=== PATIENT | male | born 1970 | race Caucasian/White ===

== ENCOUNTER → 2018-05-30 13:25 | Outpatient (CLI) | payer MEDICAID, SELFPAY | PROVIDERS: Visit Provider Nurse Practitioner Family | DX: M54.5 Low back pain (principal) | CPT/HCPCS: 72100; 72220 ==

== ENCOUNTER 2018-11-15 17:48 | Emergency (ER) | payer BC, SELFPAY ==
[2018-11-15 17:50] VITALS: BP 136/83; PULSE 104; RESP 18; TEMP 36.4; O2SAT 96; BMI 39.7
[2018-11-15] MEDS: Naproxen 500 MG Tablet PO (18:11)
--- NOTE | 2018-11-15 18:20 | RAD_ITS ---
STUDY: X-RAY - RIGHT FEMUR REASON FOR STUDY: Male, 48 years old. Pain TECHNIQUE: 5 view(s) of the femur. COMPARISON: None. FINDINGS: Normal visualized femur. Normal visualized soft tissue structure. RAD/Femur Min 2 Views IMPRESSION: Normal x-ray examination of the femur. Electronically Signed: Joaquin Horne MD at 19:09 EST , Service support ,
--- NOTE | 2018-11-15 19:13 | ED.VISSUMM ---
- ER Visit Summary Date of Service: 11/15/18 Chief Complaint: Right thigh pain History of Present Illness: The patient is a 48 M who [facility]. He reports he has chronic right thigh pain is worsened over the past 2 weeks. He describes it as a ripping pain that is 10-10 severity. Is worsened by movement. He is taken Tylenol and naproxen without relief. He denies any recent fall or MVA. He reports that he has had a change in activity. Approximately 2 weeks ago he moved to a different position at work where he stands in one place constantly rather than walks around. Also reports that he has started going to the gym and is using the stationary bike, elliptical machine, and rowing machine. Review of systems: General: No fever, chills, cold sweats. Cardiovascular: No chest pain, palpitations. Respiratory: No cough, shortness of breath, dyspnea on exertion. Gastrointestinal: No abdominal pain, nausea, vomiting, diarrhea, melena, or hematochezia. Genitourinary: No dysuria, frequency, hematuria. Skin: No rash. Neuro: No headache, numbness, weakness. Physical Examination: Vitals: Stable. Afebrile. General: Well-nourished and well-developed. Head: Normocephalic atraumatic. Neck: Supple, no lymphadenopathy. No JVD. Nontender. Cardiovascular: Regular rate and rhythm. No murmurs. Respiratory: No respiratory distress. Clear to auscultation bilaterally. Abdominal: Soft, nontender, nondistended, normal bowel sounds. No guarding, rebound, or peritoneal signs. Back: Nontender. Extremities: Severe tenderness palpation over the quadriceps muscle. No pain over the patella. No pain with range of motion of the knee. He has no edema distally. He has a 2+ dorsalis pedis pulse. Normal sensation light touch. There is no rash, contusion, erythema, or evidence of a hematoma. Skin: Normal color, no rash. Neurologic: Alert and oriented ?3. Cranial nerves II through XII are intact. Normal strength and sensation. Psych: Normal affect. Test Results: Right femur x-ray is negative. Emergency Department Course and Treatment: An OAR[facility] report was obtained which was negative. Patient was treated with naproxen here. Treatment Plan: Patient will be discharged with naproxen and [place]. Instructed to follow-up with the [facility] in 1 week if not improving. Return to the emergency department for any worsening symptoms. Disposition: To home in improved and stable condition. Impression: 1. Right thigh pain, uncertain cause. This note was generated with [employer] dictation software. It may contain incorrect words, spelling, and punctuation that were not noted in review of the chart prior to signing ED Disposition - Plan for ED Patient: Disposition: Home or Assisted Living Instructions: ED Muscle Aching Prescriptions: Hydrocodone Bitart/Apap 5-325 [[place] 5MG-325MG] 1 tablet PO Q6H PRN PRN 3 Days #10 tablet PRN Reason: Pain Naproxen [Naprosyn] 500 mg PO BID PRN #20 tablet Referrals: [facility] [Primary Care Provider] - 3-5 Days if not improving Yonny Trevino MD [STAFF PHYSICIAN] -
[2018-11-15 19:29] VITALS: PULSE 92; RESP 18; O2SAT 96
== END 2018-11-15 19:29 | disposition home or self-care (01) ==
PROVIDERS: Emergency Provider Emergency Medicine
DX: M79.651 Pain in right thigh (principal); Z72.0 Tobacco use
CPT/HCPCS: 73552; 99283

== ENCOUNTER 2019-01-24 16:42 | Emergency (ER) | payer BC, SELFPAY ==
[2019-01-24 16:43] VITALS: BP 147/100; PULSE 82; RESP 16; TEMP 36.6; O2SAT 94; BMI 40.1
--- NOTE | 2019-01-24 16:59 | CT_ITS ---
STUDY: CT ABDOMEN AND PELVIS WITHOUT CONTRAST REASON FOR EXAM: Male, 48 years old. Right lower quadrant pain RADIATION DOSAGE (If Supplied By Facility): CTDIvol = ( 21.29 ) mGy, DLP = ( 1196.99 ) mGycm TECHNIQUE: Transaxial images were obtained from the dome of the diaphragm to the symphysis pubis without oral contrast, and without intravenous contrast. Sagittal and coronal images were reconstructed. Individualized dose optimization techniques were used for this CT. COMPARISON: None. FINDINGS: The visualized lung bases are unremarkable. The visualized portions of the heart are within normal limits. There is decreased attenuation of the liver consistent with steatosis. Normal gallbladder and extrahepatic biliary system. Normal spleen. Normal pancreas. Normal bilateral adrenal glands. Normal right kidney. Normal left kidney. Normal visualized stomach. Normal small intestine. Normal colon. The appendix is visualized and appears normal. There is diffuse atherosclerotic calcification of the abdominal aorta, without a demonstrated aneurysm. Normal inferior vena cava. Normal retroperitoneum. Under distended bladder. There are prostatic calcifications. Normal abdominal wall. Normal osseous structures. CT/Abdomen/Pelvis without Cont IMPRESSION: Normal appendix. No evidence of urolithiasis or obstruction. Underdistended bladder. Electronically Signed: Bill Duarte DO at 18:34 EDT Tel , Service support ,
--- NOTE | 2019-01-24 17:04 | ED.DCSUM_ITS ---
- ER Visit Summary Date of Service: 01/24/19 Chief Complaint: Right lower quadrant abdominal pain History of Present Illness: The patient is a 48 M 3-day history of progressive right lower quadrant abdominal pain. Nausea without vomiting. Subjective fevers today. Urine frequency. Pain is 11 0.5 out of 10, worse with car ride coming in. No abdominal surgery history. Reports only past medical history is traumatic vertebral cervical fractures with no surgical intervention. Last meal was last evening, reports took a sip of coke prior to arrival. No PCP. Physical Examination: General: Alert and oriented ?3, no acute distress HEENT: Normocephalic, atraumatic. Moist mucosa membranes Neck: supple, nontender. Cardiovascular: Regular rate and rhythm, no murmurs Respiratory: Normal breath sounds, symmetric, no distress Abdomen: Soft, positive McBurney's tenderness, positive obturator's, negative Rovsing's. Negative Copeland's. No guarding, positive rebound. Extremities: Nontender, no edema, pulses intact ?4 Neuro: no focal neurological deficits. Test Results: WBC 7.5. Urine leukocytes, ketones. Negative nitrites or white blood cells. CT abdomen pelvis normal appendix with no acute findings. Emergency Department Course and Treatment: Patient tender right lower quadrant. Symptoms for 3 days. Reports subjective fevers today. Workup to rule out appendicitis. Given morphine Zofran and fluids. White count returned negative. Urine notes 25 leukocytes however no other findings. CAT scan results has a normal appendix. Reevaluation nontender abdomen. 3 days of symptoms, normal white count, negative CT, less likely clinical appendicitis at this time. Symptoms are improved. He reports coughing with some strain prior to symptoms. Discussed possibly muscle strain. However did discuss if symptoms worsen right lower quadrant he needs to return for reevaluation. He is given follow-up as an outpatient. All questions were answered. Treatment Plan: [] Disposition: Discharge Impression: Right lower quadrant abdominal pain This note was generated with [email or web address] dictation software. It may contain incorrect words, spelling, and punctuation that were not noted in review of the chart prior to signing ED Disposition - Plan for ED Patient: Disposition: Home or Assisted Living Diagnosis: Right lower quadrant abdominal pain Instructions: ED Abdominal Pain Excl Appendx Male Referrals: [facility] [NON-STAFF] - 3-5 Days if not improving
[2019-01-24] MEDS: Ondansetron 4 MG/2 ML Vial IV (17:07)
[2019-01-24] MEDS: Morphine 4 MG/ML Syringe IV (17:07)
[2019-01-24] MEDS: 0.9% Normal Saline 1,000 ML 150 ML IV (17:07)
[2019-01-24 17:21] LABS: Bacteria 0 SEEN /hpf (None Seen); Mucous, Urine 0 SEEN /hpf (<or=2+); Red Blood Cells-Urine 0 SEEN /hpf (0-5)
[2019-01-24 17:26] LABS: Absolute Neutrophil Count 4.7 X10^3/uL (2.0-7.7); Basophil# 0.04 X10^3/uL; Basophil% 0.5 % (0-1); Eosinophil# 0.26 X10^3/uL; Eosinophils% 3.3 % (0-5); Hematocrit 44.4 % (40-54); Hemoglobin 15.1 g/dl (13.0-16.5); Lymphocyte % 25.7 % (19-41); Mean Corpuscular Hgb 31.2 pg (27.0-32.0); Mean Corpuscular Volume 91.7 fL (80-94); Mean Platelet Vol. 9.8 fl (6.2-12.0); Monocyte# 0.75 X10^3/uL; Monocyte% 9.7 % (0-10); Neutrophil % 60.5 % (47-70); POSITIVE COUNT NO; POSITIVE DIFFERENTIAL NO; POSITIVE MORPHOLOGY NO; Platelet Count 196 K/mm3 (150-450); RBC Distribution Width CV 13.8 % (11.6-14.6); RBC Distribution Width SD 45.8 fl (35.1-43.9); Red Blood Count 4.84 M/mm3 (4.6-6.2); White Blood Count 7.8 K/mm3 (4.4-11.0)
[2019-01-24 17:33] LABS: Prothrombin Time (Protime)PT. 13.1 SECONDS (11.7-14.9)
[2019-01-24 17:34] LABS: Partial Thromboplast Time 26.2 Seconds (24.1-36.2)
[2019-01-24 17:37] LABS: Anion Gap 4 (5-15); BUN 12 mg/dL (7-18); BUN/Creat Ratio 15.1 RATIO (10-20); Calcium,Total 8.3 mg/dL (8.5-10.1); Chloride 113 mmol/L (98-107); EST Glomerular Filtration Rate 109 mL/min (>60); Est Glom Filt Rate - Afr Amer 132 mL/min (>60); Estimated Creatinine Clearance 114.06 ml/min; Glucose 94 mg/dL (74-106); Potassium 3.6 mmol/L (3.5-5.1); Sodium Level 143 mmol/L (136-145)
[2019-01-24 17:46] LABS: Color, Urine Yellow (Yellow); Glucose, Dipstick Normal (Normal); Ketone-Dipstick 5 mg/dl (Negative); Leukocyte Esterase-Dipstick 25 /ul (Negative); Nitrite-Dipstick Negative (Negative); Occult Blood-Urine Negative /ul (Negative); Protein-Dipstick 15 mg/dl (Negative); Urine Bilirubin Dipstick Negative (Negative); Urine Clarity Sl. Cloudy (Clear); Urine Urobilinogen 1 mg/dl (Normal)
[2019-01-24 18:24] LABS: Squamous Epithelial Cells - UA 0-5 SEEN /hpf (0-5); Trichomonas 0-5 SEEN /hpf (None Seen); White Blood Cells 0-5 SEEN /hpf (0-5)
[2019-01-24 19:46] VITALS: BP 138/60; PULSE 78; RESP 16; O2SAT 96
== END 2019-01-24 19:47 | disposition home or self-care (01) ==
PROVIDERS: Emergency Provider Emergency Medicine
DX: R10.31 Right lower quadrant pain (principal); E66.9 Obesity, unspecified; Z72.0 Tobacco use
CPT/HCPCS: 74176; 80048; 81001; 85025; 85610; 85730; 96361; 96374; 96375; 99283; J7030; A4216; J2405

== ENCOUNTER 2019-08-12 18:04 | Emergency (ER) | payer BC, SELFPAY ==
[2019-08-12] VITALS (10 sets, daily range): BP systolic 125–187; BP diastolic 71–88; PULSE 95–112; RESP 14–30; TEMP 37.3–37.5; O2SAT 84–99; BMI 40.9
--- NOTE | 2019-08-12 18:30 | EKG12_ITS ---
Test Reason : CELLULITIS Blood Pressure : / mmHG Vent. Rate : 100 BPM Atrial Rate : 100 BPM P-R Int : 150 ms QRS Dur : 092 ms QT Int : 338 ms P-R-T Axes : 034 050 041 degrees QTc Int : 436 ms Normal sinus rhythm Normal ECG Confirmed by ALVA ELAINE, KURT ([id number]), electronic news gathering editor DARRON ALLEN ([id number]) on 08/16/2019 1:58:08 PM Referred By: PAXTON Confirmed By:KURT CALLE MD
--- NOTE | 2019-08-12 18:42 | HP.PCM_ITS ---
Problem List (1) Abscess of right groin Status: Acute (2) Cellulitis Status: Acute Qualifiers: Site of cellulitis: unspecified site Qualified Code(s): L03.90 - Cellulitis, unspecified (3) Sepsis Status: Acute Qualifiers: Sepsis type: sepsis due to unspecified organism Sepsis acute organ dysfunction status: unspecified Qualified Code(s): A41.9 - Sepsis, unspecified organism (4) HLD (hyperlipidemia) Status: Chronic Qualifiers: Hyperlipidemia type: unspecified Qualified Code(s): E78.5 - Hyperlipidemia, unspecified (5) Morbid obesity Status: Chronic (6) Tobacco use Status: Chronic History of Present Illness Date of Admission: 08/12/19 Chief Complaint: RLE redness, R groin fullness with drainage, fever, chills The patient is a 49 y/o M w/ PMHx: HLD, Morbid Obesity, Tobacco use, Prior episode of RLE cellulitis w/ concurrent R groin abscess with I+D at [facility] in [place] who presents to the [facility] ED on 08/12/19 with history of onset right groin fullness and tenderness with subjective fevers and chills starting the day prior to current presentation with today notable redness to the region, increased fullness, left lower quadrant discomfort with streaking down the leg in addition to spontaneous rupture of the apparent abscess in the groin with purulent material in addition to swelling of the scrotal region and redness. Patient states that he takes no medications except that approximately 1 week ago he was seen at urgent care secondary to cough congestion and subjective fevers and chills at that time with chest x-ray that was unremarkable with treatment with an albuterol as needed inhaler and a steroid burst regimen with improvement from the symptoms until current presentation as noted. Work-up in the ED included T 99.5, heart rate 112, BP 159/84, respiratory rate 17, 96% on room air, at time of request evaluation of patient he has pending CBC with differential, CMP, lactic acid, PTT, PT, UA, planned I&D per ED physician with discussed need for wound culture and MRSA wound once performed. ED physician noted after I&D perfo rmed if concern for tunneling he would obtain imaging. He noted intention to consult the urologist prior to admission. Past Medical History Past Medical History (Chronic Problems): Chronic Problems HLD (hyperlipidemia) (Chronic) Morbid obesity (Chronic) Tobacco use (Chronic) Allergies No Known Allergies Allergy (Verified 08/12/19 18:04) Home Medications: Ambulatory Orders Medication Instructions Recorded NK 08/12/19 Surgical History: - - Patient has history of prior trauma with possible left upper extremity surgery and left lower extremity surgery, tonsillectomy, status post left groin I&D with similar presentation to current. Psychiatric History: No pertinent psych hx Lives: With Family - Patient notes that he lives with his cousin. Smoking Status: Current every day smoker - Patient smokes approximately 1 pack/day, often less. Tobacco Use: Cigarettes Alcohol: None Drugs: None - *Family History Maternal History Items: - - Patient notes that his mother when he was less than 1 year old secondary to carbon monoxide poisoning. No significant medical history including heart disease, diabetes or cancer. Paternal History Items: Diabetes, Heart Disease Review of Systems Constitutional: Reports: Anorexia, Chills, Fever, Malaise, Weakness, Fatigue. Denies: Weight Change HEENT: Reports: Post Nasal Drip - Recent, improved, near resolved, Sinus Congestion - Recent, improved, near resolved, Sinus Drainage, Sore Throat - Recent, improved, near resolved.. Denies: Head Aches Cardiovascular: Denies: Chest Pain, Palpitations Respiratory: Reports: Cough - Recent, improved, near resolved., Sputum production - Recent, improved, near resolved. Denies: Shortness of Breath, Shortness of breath at rest, Shortness of breath upon exertion, Wheezing Gastrointestinal: Reports: Abdominal Pain, Nausea. Denies: Vomiting Genitourinary: Denies: Dysuria Musculoskeletal: Reports: Back Pain, Leg Pain, - - Technique again left groin pain and left lower extremity pain.. Denies: Joint Pain, Joint Tenderness Skin: Reports: Skin Changes, Wounds. Denies: Rash Neurological: Denies: Numbness, Tingling, Focal weakness Psychiatric: Denies: Anxiety, Depression, Homicidal Ideations, Suicidal Ideations Hematologic/ Lymphatic: Denies: Easy Bruising, Easy Bleeding VTE Information - Inpt Only VTE Present on Admission: No VTE Mechan Device Prophylaxis: SCD's VTE Pharm Prophylaxis ordered?: No Reason prophylaxis not ordered:: Medical Contraindication - Will hold chemoprophylaxis as suspect patient will eventually need operative intervention. Subjective: Seated upright in ED bed, significantly uncomfortable, asking for pain medication, and pending I&D of the left groin. Objective: Physical Examination: General: awake, alert, oriented x 3 and cooperative, seated upright in the ED bed, uncomfortable appearing. Skin: normal color, turgor, no icterus, cyanosis except notable LLE streaking, more prominent to the upper thigh region as well as suprapubic and left testicular region, fullness, spontaneous drainage from the right focal groin abscess which is evident, very tender to palpation, warm to touch. HEENT: AT/NC, EOMI, PERRLA, dry MM, no carotid bruits or JVD noted. Lungs: CTA bilaterally, moderate effort, moderate decrease BL bases, no rales, ronchi or wheezing. Heart: Tachycardic with regular rhythm; no gallop, rub audible. Abdomen: soft, morbidly obese, tenderness to palpation bilateral lower quadrants left greater than right with noted pain on the left side with palpation of the right, see skin findings for groin but unable to discern distention given habitus, decreased bowel sounds, unable to discern HSM secondary to habitus. Extremities: no cyanosis, clubbing, see skin, right lower extremity with erythema, firm primarily in the upper thigh region but some firmness to palpation of the calf 2. Neurological: patient awake, alert, oriented x 3; cognitive function intact; pupils equally reactive to light and accomodation; cranial nerves II-XII grossly normal, moving all 4 extremities very limited secondary to severity of pain, no focal deficits, strength severely global decreased to secondary to acute presentation. Psychiatric: affect appears strained, evidence ongoing pain, no acute evidence of depressive or anxiety feelings. - Physical Exam Vitals/I&O's: Vital Signs Temp Pulse Resp BP Pulse Ox 99.5 F H 112 H 17 159/84 H 96 08/12/19 18:05 08/12/19 18:05 08/12/19 18:05 08/12/19 18:05 08/12/19 18:05 Oxygen Delivery Method Room Air Weight: 285 lb 7.978 oz Body Mass Index (BMI) 40.9 Current Medications Vancomycin HCl 2,250 mg/ (Dextrose) 295 mls @ 250 mls/hr IV X1 ONE Stop: 08/12/19 19:23 Lactated Ringer's () 1,000 mls @ 250 mls/hr IV .Q4H MICHAEL Piperacillin Sod/Tazobactam Sod (Zosyn) 4.5 gm in 100 mls @ 200 mls/hr IV X1 ONE Stop: 08/12/19 18:53 Clindamycin Phosphate 900 mg/ (Dextrose) 106 mls @ 75 mls/hr IV X1 ONE Stop: 08/12/19 19:56 Vancomycin HCl 2,000 mg/ (Sodium Chloride) 540 mls @ 250 mls/hr IV X1 ONE Stop: 08/12/19 21:09 Assessment/Plan All Active Problems Abscess of right groin (Acute) Cellulitis (Acute) Sepsis (Acute) The patient is a 49 y/o M w/ PMHx: HLD, Morbid Obesity, Tobacco use, Prior episode of RLE cellulitis w/ concurrent R groin abscess with I+D at [facility] in [place] who presents to the [facility] ED on 08/12/19 with history of onset right groin fullness and tenderness with subjective fevers and chills starting the day prior to current presentation with today notable redness to the region, increased fullness, left lower quadrant discomfort with streaking down the leg. (1) RLE Groin Abscess, Cellulitis Lower Abdomen, R groin, R Testicle and RLE w/ Suspected Acute Sepsis, possible Severe Sepsis (pending labs, cannot discern): ED physician currently planning I&D, noted intention for lower extremity and lower abdomen imaging if tracking evident, plans to obtain wound culture and wound MRSA PCR, admission currently clindamycin, vancomycin and Zosyn. Will await this further work-up and also discussed patient presentation with urology as concerned that patient likely needs progression to the OR given severity of his appearance, maintain aggressive antibiotic therapy as noted, would plan admission to appropriate floor once results obtained if urology agreeable to evaluation and possible surgical intervention on patient, we then plan repeat CBC in AM, trending of lactic acid is likely expected to be elevated, continue affected extremity elevation above heart when seated and in bed, monitor erythema outline with VS checks. Wound nurse would also be consulted. (2) Morbid Obesity: Weight loss and lifestyle changes encouraged, nutrition consulted. (3) Tobacco Abuse: Encouraged cessation, inpatient consultation per RT, NR if desired. (4) Hyperlipidemia: Defer to outpatient. (5) Recent Viral Bronchitis: Patient with recent viral bronchitis, clinically improved from this, noted unremarkable chest x-ray outpatient with treatment with PRN albuterol and steroid burst regimen. (6) DVT prophylaxis: SCDs, defer chemoprophylaxis I suspect will need operative intervention, pending discussion with urology.
--- NOTE | 2019-08-12 18:45 | ED.DCSUM_ITS ---
History of Present Illness Chief Complaint: Cellulitis Informant: Patient Onset: Yesterday Context: Sudden Onset Timing: Continuous Quality: Red swollen painful left groin and leg Location: Left groin and leg Current Severity: Moderate Maximum Severity: Severe Worsened by: Infection Relieved by: Nothing Associated Symptoms: Spontaneous rupture of abscess Narrative: Patient is a middle-age male who history of hypercholesterolemia and on predn isone for recent upper respiratory infection who presents because of redness, pain and swelling that started yesterday. He states the pain was severe. He went to take a shower after work and the area opened up with release of pus. Patient reports fever with rigors. He denies history rheumatic fever, murmur, SBE or being immune suppressed. He states he had a similar episode several years ago and had an I&D performed at [facility]. Prior similar symptoms: Yes Recent Illness/Hospitalization: No Past Medical History - Allergies and Home Meds Allergies/Adverse Reactions: Allergies No Known Allergies Allergy (Verified 08/12/19 18:04) Primary Care Physician: Care Physician,No Primary [Primary Care Provider] - Prior records reviewed: Yes - Hypercholesterolemia Surgical History: no surgical history Lives: Alone Smoking Status: Never smoker Alcohol: None Drugs: None - Family History Maternal Family History: Reports: - - Patient notes that his mother when he was less than 1 year old secondary to carbon monoxide poisoning. No significant medical history including heart disease, diabetes or cancer. Paternal Family History: Reports: Diabetes, Heart Disease Review of Systems General: Reports: Chills, Fever, Malaise, Sweats Eyes: Denies: Visual changes - bilaterally, Blurred Vision - bilaterally ENT: Denies: Bilateral ear pain, Rhinorrhea, Sore throat Cardiovascular: Denies: Chest pain, Palpitations Respiratory: Denies: Dyspnea, Cough, Dyspnea on exertion Gastrointestinal: Denies: Abdominal pain, Nausea, Vomiting, Diarrhea, Melena, Hematochezia Genitourinary: Reports: - - Urgency. Denies: Dysuria, Hematuria, Frequency Musculoskeletal: Reports: Extremity Pain - Left medial proximal thigh. Denies: Myalgias, Arthralgias, Neck pain, Back pain, Swelling Skin: Reports: Rash, Abscess, Wounds Neurological: Denies: Headache, Weakness, Parasthesia Hematologic: Denies: Easy bruising, Easy bleeding Allergy: Denies: Uticaria, Swelling of the mouth, Swelling of the tongue Physical Exam Vital Signs/Narrative: Vital Signs Temp Pulse Resp BP Pulse Ox 08/12/19 18:05 99.5 F H 112 H 17 159/84 H 96 Inital Vital Signs reviewed: Yes General: Well nourished, Well developed, No Acute Distress, - - Recent appears ill. Head: Normocephalic, Atraumatic Eyes: Perrl, EOMI ENT: Moist mucous membranes, No rhinorrhea Neck: Supple, Nontender Cardiovascular: Regular rate, Regular rhythm, No murmurs Respiratory: No distress, CTA bilaterally, Chest nontender Abdomen: Soft, Nondistended, Normal bowel sounds, No masses, Tender - Reports his abdomen feels firm. Negative for: Guarding, Rebound tenderness : - - He is circumcised. There is no erythema of the penis. The scrotum is erythematous. There is no crepitus. There is fluctuance in the left inguinal area with apparent abscess. There is inguinal lymphadenopathy. There is cellulitis involving the suprapubic region, left inguinal area and left medial proximal thigh. The area of erythema was demarcated with marking pen. Back: Nontender, Normal Inspection Extremities: Nontender, No edema Skin: Normal color, No rash Neurological: Alert, Oriented x3, Cranial nerves II-XII grossly intact, Normal Strength, Normal Sensation Psychological: Normal affect, Normal Mood Diagnostic/Tx/Re-eval Impressions Pelvis CT 08/12/19 19:15 IMPRESSION: Induration with subcutaneous air densities of the left perineum/left scrotal region involving a region measuring approximately 4.6 x 3.0 x 5.2 cm. 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 There is no evidence of necrotizing fasciitis. Electronically Signed: Stan Flores MD at 20:26 EST , Service support , 08/12/19 19:15 CT Pel [Pelvis WITH IV Contrast] [CT] Stat Laboratory Results 08/12/19 08/12/19 08/12/19 18:50 18:50 18:50 WBC 12.4 H RBC 4.60 Hgb 14.1 Hct 42.8 MCV 93.0 MCH 30.7 MCHC 32.9 RDW Std Deviation 47.4 H RDW Coeff of Alejandra 13.8 Plt Count 220 MPV 10.3 Immature Gran % (Auto) 0.600 Neut % (Auto) 74.8 H Lymph % (Auto) 14.1 L [place] % (Auto) 7.9 Eos % (Auto) 2.0 Baso % (Auto) 0.6 Absolute Neuts (auto) 9.3 H Absolute Lymphs (auto) 1.75 Nucleated RBC % 0 PT 13.6 INR 1.1 APTT 28.1 Sodium 141 Potassium 3.5 Chloride 107 Carbon Dioxide 28.0 Anion Gap 6 BUN 13 Creatinine 0.82 Estim Creat Clear Calc 110.04 Est GFR (MDRD) Af Amer 127 Est GFR (MDRD) Non-Af 105 BUN/Creatinine Ratio 15.9 Glucose 102 Lactic Acid Calcium 8.8 Total Bilirubin 0.40 AST 20 ALT 41 Alkaline Phosphatase 77 Total Protein 7.4 Albumin 3.7 Globulin 3.7 Albumin/Globulin Ratio 1.0 08/12/19 18:50 WBC RBC Hgb Hct MCV MCH MCHC RDW Std Deviation RDW Coeff of Alejandra Plt Count MPV Immature Gran % (Auto) Neut % (Auto) Lymph % (Auto) [place] % (Auto) Eos % (Auto) Baso % (Auto) Absolute Neuts (auto) Absolute Lymphs (auto) Nucleated RBC % PT INR APTT Sodium Potassium Chloride Carbon Dioxide Anion Gap BUN Creatinine Estim Creat Clear Calc Est GFR (MDRD) Af Amer Est GFR (MDRD) Non-Af BUN/Creatinine Ratio Glucose Lactic Acid Cancelled Calcium Total Bilirubin AST ALT Alkaline Phosphatase Total Protein Albumin Globulin Albumin/Globulin Ratio - Medical Decision Making Abrupt onset of illness concern patient has streptococcal infection. He was treated with clindamycin, vancomycin and Zosyn. Nurse was instructed to give clindamycin first. Patient has not anything to eat or drink in greater than 6 hours. Patient denies allergy to soy products or egg products. Consented for deep sedation and I&D of abscess. Will obtain wound culture as well as culture for MRSA. I was informed by hospitalist that she contacted the urologist, Dr. Isaac Oconnor. Informed me that he recommended transfer. I was not certain why patient requires transfer. I contacted Dr. Oconnor myself. He informed me that these patients can do poorly and can deteriorate rapidly. He also informed me that he would not be available if things occurred tomorrow since he is not on- call. Patient was informed that he will require transfer. After speaking with friends and family, he requested [facility]. Count is elevated. Lactate was redrawn because of hemolyzed. 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 The subcutaneous air most likely is air from the I&D I performed. There is significant inflammation. Images were sent to [facility] for urologist to review. Spoke with urology resident. Patient was accepted by the equipment analyst Dr Martinez. - Critical Care Time Critical care time (excluding procedures): 30-74 minutes - Care time 37 minutes, Discussing w/Patient &/or Family/Medical Assisting Program Director, Discussing w/Consultants, Arranging Admission or Transfer, Performing Direct Patient Care at Bedside Procedures Procedure(s): 1. Deep sedation. 2. I&D left inguinal abscess. Patient was informed of need for I&D. Since he has not eaten in the last 6 hours he was informed that it would be in his best interest because the area is very painful to sedate him with propofol. He was explained risk benefits of using propofol. He denies allergy to soy products or milk products. He is never had a complication with IV anesthetic in the past. There is no contraindication to administer propofol. Patient was informed that an I&D needs to be done and that he would have a pack placed. He understands a cultures will be obtained. He was given opportunity ask questions regarding deep sedation and I&D. None were asked. He understood the risks involved. He signed consent form. Patient received a total of 250 mg of propofol. The area was anesthetized with 1% lidocaine by local infiltration. A 3.5 cm incision was made. There was free flow of around purulent bloody material. There was approximately 60 cc of this material. Blunt dissection was undertaken. Cavity was irrigated. A wick was placed. ED Disposition - Plan for ED Patient: Diagnosis: Cellulitis of groin, left, Abscess of groin, left, Sepsis, Sinus tachycardia by electrocardiogram Referrals: Care Physician,No Primary [Primary Care Provider] -
[2019-08-12 19:03] LABS: Absolute Lymphocyte Count 1.75 X10^3/uL (0.83-4.51); Absolute Neutrophil Count 9.3 X10^3/uL (2.0-7.7); Basophil# 0.07 X10^3/uL; Basophil% 0.6 % (0-1); Eosinophil# 0.25 X10^3/uL; Hematocrit 42.8 % (40-54); Hemoglobin 14.1 g/dL (13.0-16.5); Lymphocyte # 1.75 X10^3/ul (4.0); Lymphocyte % 14.1 % (19-41); Mean Corp Hgb Conc 32.9 g/dL (32-36); Mean Corpuscular Hgb 30.7 pg (27.0-32.0); Mean Platelet Vol. 10.3 fl (6.2-12.0); Monocyte# 0.98 X10^3/uL; Monocyte% 7.9 % (0-10); NRBC Flagged by Analyzer 0 % (0-5); Neutrophil # 9.26 X10^3/uL (2.7-7.7); Neutrophil % 74.8 % (47-70); Platelet Count 220 K/mm3 (150-450); RBC Distribution Width CV 13.8 % (11.6-14.6); RBC Distribution Width SD 47.4 fl (35.1-43.9); White Blood Count 12.4 K/mm3 (4.4-11.0)
[2019-08-12 19:11] LABS: International Normalized Ratio 1.1; Prothrombin Time (Protime)PT. 13.6 SECONDS (11.7-14.9)
[2019-08-12 19:12] LABS: Partial Thromboplast Time 28.1 Seconds (24.1-36.2)
--- NOTE | 2019-08-12 19:15 | CT_ITS ---
STUDY: CT PELVIS WITH CONTRAST REASON FOR EXAM: Male, 49 years old. Suspected necrotizing fasciitis, left groin abscess with redness extending to distal thigh RADIATION DOSAGE (If Supplied By Facility): CTDIvol = ( 19.97 ) mGy, DLP = ( 1246.26 ) mGycm TECHNIQUE: Transaxial imaging of the pelvis was performed without oral contrast. IV Isovue 370 100 was administered intravenously. Individualized dose optimization techniques were used for this CT. COMPARISON: Prior study of 01/24/2019 FINDINGS: Normal urinary bladder. Normal visualized small intestine. Normal visualized colon. There is no pelvic fluid. There is no pelvic lymphadenopathy or mass lesion. Prostatic calcifications are present. Normal visualized pelvic arteries. There is induration with subcutaneous air densities of the left perineum/left scrotal region. This involves a region approximately 4.6 x 3.0 x 5.2 cm. Adjacent soft tissue muscle fascial planes are preserved. There is mild skin thickening and subcutaneous fatty stranding of the visualized medial proximal left thigh. Normal osseous structures. CT/Pelvis WITH IV Contrast IMPRESSION: Induration with subcutaneous air densities of the left perineum/left scrotal region involving a region measuring approximately 4.6 x 3.0 x 5.2 cm. 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 There is no evidence of necrotizing fasciitis. Electronically Signed: Stan Flores MD at 20:26 EST , Service support ,
[2019-08-12 19:22] LABS: AST(SGOT) 20 U/L (15-37); Alanine Aminotransfer ALT/SGPT 41 U/L (16-61); Albumin, Serum 3.7 g/dL (3.2-5.0); Alkaline Phosphatase 77 U/L (45-117); Anion Gap 6 (5-15); BUN 13 mg/dL (7-18); BUN/Creat Ratio 15.9 RATIO (10-20); Calcium,Total 8.8 mg/dL (8.5-10.1); Chloride 107 mmol/L (98-107); Creatinine, Serum 0.82 mg/dL (0.70-1.30); EST Glomerular Filtration Rate 105 mL/min (>60); Est Glom Filt Rate - Afr Amer 127 mL/min (>60); Estimated Creatinine Clearance 110.04 ml/min; Globulin 3.7 g/dL (2.2-4.2); Glucose 102 mg/dL (74-106); Potassium 3.5 mmol/L (3.5-5.1); Protein, Total 7.4 g/dL (6.4-8.2); Sodium Level 141 mmol/L (136-145)
[2019-08-12] MEDS: Morphine 4 MG/ML Syringe IV (19:39)
[2019-08-12] MEDS: Ondansetron 4 MG/2 ML Vial IV (19:39)
[2019-08-12] MEDS: HYDROmorphone 1 MG/ML Syringe IV ×2 (20:10→21:29)
[2019-08-12] MEDS: Propofol 200 MG/20 ML Vial 250 MG IV BOLUS (20:17)
[2019-08-12 20:50] LABS: Lactic Acid 0.8 mmol/L (0.4-2.0)
[2019-08-12 20:58] LABS: M R Staph aureus DNA By PCR Negative (Negative); Probe Check PASS; Specimen Processing Control PASS; Staph aureus DNA By PCR NEGATIVE (Negative)
--- NOTE | 2019-08-12 21:55 | ED.RN ---
third alderette score unable to be completed on due to pt in imaging of abscess, per verbal order of dr. tijerina. i did accompany pt to ct but was unable to obtain blood pressure at required time. pt was awake and responsive during scan.
== END 2019-08-12 22:19 | disposition short-term general hospital (02) ==
LOC: ED 19:03
PROVIDERS: Emergency Provider Emergency Medicine
DX: A41.9 Sepsis, unspecified organism (principal); L02.214 Cutaneous abscess of groin; L03.314 Cellulitis of groin; R00.0 Tachycardia, unspecified; E78.00 Pure hypercholesterolemia, unspecified; E66.01 Morbid (severe) obesity due to excess calories; F17.210 Nicotine dependence, cigarettes, uncomplicated; Z68.41 Body mass index [BMI] 40.0-44.9, adult
CPT/HCPCS: 10060; 72193; 80053; 83605; 85025; 85610; 85730; 87040; 87070; 87077; 87205; 87640; 93005; 96365; 96366; 96367; 96375; 96376; 99152; 99285; J7040; J7050; Q9967; A4216; J2405

== ENCOUNTER → 2019-09-09 13:46 | Outpatient (CLI) | payer BC, SELFPAY ==
[2019-08-12 18:05] VITALS: BMI 40.9
--- NOTE | 2019-09-09 13:52 | VDLE_ITS ---
Reason For Study: F/U DVT (left calf area), LLE pain RIGHT LEFT CFV is compressible, spontaneous, phasic, GSV is normal. competent and demonstrates normal CFV is compressible, spontaneous, phasic, augmentation. competent, and demonstrates normal Procedure augmentation. Exam performed in department. FV is compressible, spontaneous, phasic, The exam was diagnostic. competent and demonstrates normal A preliminary report was called and/or faxed augmentation. to Dr. Rai @ 2:30 pm @ [phone]. POP V is compressible, spontaneous, phasic, competent and demonstrates normal augmentation. T/P Trunk is compressible. PTV is compressible. LT PerV is compressible. Gastrocnemius V, Soleous V are compressible. SSV is dilated and NON-compressible. Interpretation Summary There is no evidence of left lower extremity deep vein thrombosis. Right great saphenous vein appears patent and compressible segmentally. Superficial thrombophlebitis left small saphenous vein Normal flow patterns right common femoral vein Ordering Physician: Gerson Rai Referring Physician: Gerson Rai Performed By: Cary Vidales, WILMAN, RVT
== END ==
LOC: CVS 13:48
PROVIDERS: Referring Provider Family Medicine; Visit Provider Family Medicine
DX: I82.462 Acute embolism and thrombosis of left calf muscular vein (principal); M79.605 Pain in left leg
CPT/HCPCS: 93971

== ENCOUNTER 2021-02-25 18:35 | Emergency (ER) | payer BC, SELFPAY ==
[2019-08-12 18:05] VITALS: BMI 40.9
[2021-02-25 18:36] VITALS: BP 171/108; PULSE 92; RESP 16; TEMP 34.8; O2SAT 94; BMI 42.8
[2021-02-25 18:39] VITALS: BP 171/108; PULSE 92; RESP 16; TEMP 34.8; O2SAT 94
--- NOTE | 2021-02-25 18:58 | EKG12_ITS ---
Test Reason : GENERAL Blood Pressure : / mmHG Vent. Rate : 078 BPM Atrial Rate : 078 BPM P-R Int : 154 ms QRS Dur : 098 ms QT Int : 380 ms P-R-T Axes : 035 060 013 degrees QTc Int : 433 ms Normal sinus rhythm Inferior infarct , age undetermined Abnormal ECG Confirmed by SAHIL ELAINE, NORRIS ([id number]), general expeditor APPLE JAMES ([id number]) on 02/27/2021 9:42:17 AM Referred By: EDNA Confirmed By:NORRIS BAXTER MD
--- NOTE | 2021-02-25 19:00 | EX.ED.DYSGE1 ---
HPI History of Present Illness Chief Complaint: General Illness Narrative Narrative: Patient presents with some epigastric pain, some nausea, he felt lightheaded earlier today and he felt unwell. He has no chest pain or shortness of breath he has no pleuritic component. He has chronic lower extremity edema which has not changed. He has no dysuria or hematuria although he does feel some abdominal fullness. He has no headache. He had chills but no fevers. [facility] Medical History (Updated 02/25/21 @ 21:[address] Marco Hughes MD) Hypertension Home Medications NK 02/25/21 [History Last Taken Unknown] Allergy/AdvReac Type Severity Reaction Status Date / Time No Known Allergies Allergy Verified 02/25/21 18:39 Social History Smoking Status: Current every day smoker ROS ROS ED ROS Narrative Past medical history: Reviewed, includes hyperlipidemia, hypertension, obesity. Medications: Reviewed Social history: Noncontributory Review of systems: All systems negative except as indicated General: No fever, he did have some chills. Eyes: No visual changes ENT: No upper airway congestion, normal voice Neck: No neck pain Cardiovascular: No chest pain, no palpitations Respiratory: No shortness of breath or cough Gastrointestinal: Some epigastric pain Genitourinary: No dysuria Musculoskeletal: Denies myalgias no difficulty with ambulation Skin: No rash Neurological: No memory loss, confusion or any focal weakness Psych: No recent behavioral changes Hematologic: No easy bleeding or easy bruising EXAM Physical Exam Narrative Exam Narrative: Physical exam General: Patient has a BMI of 42, he does not appear in significant distress Head: Normocephalic, Atraumatic Eyes: Conjunctiva not pale ENT: Moist mucous membranes Neck: Supple, Nontender, No lymphadenopathy Cardiovascular: Regular rate, Regular rhythm Respiratory: No distress, CTA bilaterally Abdomen: Soft, Nontender, Nondistended Back: Nontender, Normal Inspection. Negative for: CVA tenderness Extremities: Nontender, No edema Skin: Normal color, No rash Neurological: Alert, Normal Strength, Normal Sensation Psychological: Normal affect Const Vital Signs: 02/25/21 18:36 02/25/21 18:39 02/25/21 20:28 Temperature 94.7 F L 94.7 F L Temperature Source Temporal Temporal Pulse Rate 92 92 77 Respiratory Rate 16 16 16 Blood Pressure 171/108 H 171/108 H 152/88 H Blood Pressure Mean 129 129 109 Pulse Ox 94 94 95 Oxygen Delivery Method Room Air Room Air Room Air MDM MDM MDM Narrative Medical decision making narrative: Patient has an unremarkable work-up after IV fluids he significantly improved. I believe he is stable for discharge. Lab Data Labs: Laboratory Results - last 24 hr 02/25/21 02/25/21 02/25/21 07:00 19:24 19:24 WBC 8.6 RBC 4.95 Hgb 15.0 Hct 46.5 MCV 93.9 MCH 30.3 MCHC 32.3 RDW Std Deviation 45.5 H RDW Coeff of Alejandra 13.2 Plt Count 217 MPV 10.4 Immature Gran % (Auto) 0.600 Neut % (Auto) 66.3 Lymph % (Auto) 23.0 Mitchell % (Auto) 6.3 Eos % (Auto) 3.0 Baso % (Auto) 0.8 Absolute Neuts (auto) 5.7 Absolute Lymphs (auto) 1.97 Nucleated RBC % 0 Sodium 140 Potassium 3.5 Chloride 107 Carbon Dioxide 27.0 Anion Gap 6 BUN 9 Creatinine 0.84 Estim Creat Clear Calc 106.22 Est GFR (MDRD) Af Amer 122 Est GFR (MDRD) Non-Af 101 BUN/Creatinine Ratio 10.7 Glucose 100 Calcium 8.7 Total Bilirubin 0.40 AST 22 ALT 54 Alkaline Phosphatase 83 Troponin I < 0.015 Total Protein 7.1 Albumin 3.6 Globulin 3.5 Albumin/Globulin Ratio 1.0 Lipase 48 L Urine Color Yellow Urine Clarity Clear Urine pH 6.0 Ur Specific [place] 1.030 Urine Protein 30 H Urine Glucose (UA) Normal Urine Ketones Negative Urine Occult Blood Negative Urine Nitrite Negative Urine Bilirubin Negative Urine Urobilinogen Normal Ur Leukocyte Esterase 25 H Urine RBC 0 SEEN Urine WBC 0-5 SEEN Ur Squamous Epith Cells 0-5 SEEN Urine Bacteria 0 SEEN Urine Mucus 1+ Radiography Diagnostic Testing: Radiology Impression Chest X-Ray 02/25/21 19:27 IMPRESSION: No radiographic evidence of acute cardiopulmonary disease. at 2036 Reported and signed by: Dhruv Mondragon MD Electronically Signed: Dhruv Mondragon MD at 20:36 EDT Tel , Service support , Discharge Plan Triage Chief Complaint: General Illness ED Provider: Marco Hughes Dx/Rx/DC Orders Clinical Impression: Light-headed Instructions: ED Dizziness, Uncertain Cause Prescriptions: No Action NK RF: 0 Primary Care Provider: Margoth Whiting Referrals: Margoth Whiting, PA [Primary Care Provider] - 3-5 Days Disposition Disposition: Home, self care
[2021-02-25 19:11] LABS: Bacteria 0 SEEN /hpf (None Seen); Red Blood Cells-Urine 0 SEEN /hpf (0-5)
[2021-02-25] MEDS: 0.9% Normal Saline 1,000 ML 1000 ML IV (19:22)
[2021-02-25 19:23] LABS: Color, Urine Yellow (Yellow); Glucose, Dipstick Normal (Normal); Ketone-Dipstick Negative (Negative); Leukocyte Esterase-Dipstick 25 /ul (Negative); Nitrite-Dipstick Negative (Negative); Occult Blood-Urine Negative /ul (Negative); Protein-Dipstick 30 mg/dl (Negative); Urine Bilirubin Dipstick Negative (Negative); Urine Clarity Clear (Clear); Urine Urobilinogen Normal (Normal)
--- NOTE | 2021-02-25 19:27 | RAD_ITS ---
HISTORY: weakness EXAMINATION/TECHNIQUE: XR Chest 1 View: Portable upright AP chest x-ray. COMPARISON: 10/08/16 FINDINGS: LINES/DEVICES: None. LUNGS: No consolidation, edema or effusion. No pneumothorax. MEDIASTINUM AND CARDIOVASCULAR STRUCTURES: Cardiac silhouette not enlarged. Central airways and mediastinal contour are unremarkable. BONES AND SOFT TISSUES: No acute bony abnormalities. RAD/Chest 1 View (Portable) IMPRESSION: No radiographic evidence of acute cardiopulmonary disease. at 2037 Reported and signed by: Dhruv Mondragon MD Electronically Signed: Dhruv Mondragon MD at 20:36 EDT Tel , Service support ,
[2021-02-25 19:41] LABS: Mucous, Urine 1+ /hpf (<or=2+); Squamous Epithelial Cells - UA 0-5 SEEN /hpf (0-5); White Blood Cells 0-5 SEEN /hpf (0-5)
[2021-02-25 19:56] LABS: Absolute Lymphocyte Count 1.97 X10^3/uL (0.83-4.51); Absolute Neutrophil Count 5.7 X10^3/uL (2.0-7.7); Basophil# 0.07 X10^3/uL; Basophil% 0.8 % (0-1); Eosinophil# 0.26 X10^3/uL; Hematocrit 46.5 % (40-54); Lymphocyte # 1.97 X10^3/ul (0.83-4.51); Mean Corp Hgb Conc 32.3 g/dL (32-36); Mean Corpuscular Hgb 30.3 pg (27.0-32.0); Mean Corpuscular Volume 93.9 fL (80-94); Mean Platelet Vol. 10.4 fl (6.2-12.0); Monocyte# 0.54 X10^3/uL; Monocyte% 6.3 % (0-10); NRBC Flagged by Analyzer 0 % (0-5); Neutrophil # 5.67 X10^3/uL (2.7-7.7); Neutrophil % 66.3 % (47-70); Platelet Count 217 K/mm3 (150-450); RBC Distribution Width CV 13.2 % (11.6-14.6); RBC Distribution Width SD 45.5 fl (35.1-43.9); Red Blood Count 4.95 M/mm3 (4.6-6.2); White Blood Count 8.6 K/mm3 (4.4-11.0)
[2021-02-25 20:08] LABS: AST(SGOT) 22 U/L (15-37); Alanine Aminotransfer ALT/SGPT 54 U/L (16-61); Albumin, Serum 3.6 g/dL (3.2-5.0); Alkaline Phosphatase 83 U/L (45-117); Anion Gap 6 (5-15); BUN 9 mg/dL (7-18); BUN/Creat Ratio 10.7 RATIO (10-20); Calcium,Total 8.7 mg/dL (8.5-10.1); Chloride 107 mmol/L (98-107); Creatinine, Serum 0.84 mg/dL (0.70-1.30); EST Glomerular Filtration Rate 101 mL/min (>60); Est Glom Filt Rate - Afr Amer 122 mL/min (>60); Estimated Creatinine Clearance 106.22 ml/min; Globulin 3.5 g/dL (2.2-4.2); Glucose 100 mg/dL (74-106); Lipase 48 U/L (73-393); Potassium 3.5 mmol/L (3.5-5.1); Protein, Total 7.1 g/dL (6.4-8.2); Sodium Level 140 mmol/L (136-145)
[2021-02-25 20:28] VITALS: BP 152/88; PULSE 77; RESP 16; O2SAT 95
[2021-02-25 22:02] VITALS: BP 152/87; PULSE 75; RESP 16; O2SAT 97
== END 2021-02-25 22:04 | disposition home or self-care (01) ==
PROVIDERS: Emergency Provider Emergency Medicine; PCP Physician Assistant
DX: R42 Dizziness and giddiness (principal); I10 Essential (primary) hypertension; F17.200 Nicotine dependence, unspecified, uncomplicated
CPT/HCPCS: 71045; 80053; 81001; 83690; 84484; 85025; 93005; 96360; 96361; 99285; J7030

== ENCOUNTER 2021-06-23 07:16 | Inpatient (IN) | payer BC, SELFPAY ==
[2021-06-23] VITALS (8 sets, daily range): BP systolic 108–135; BP diastolic 59–84; PULSE 86–109; RESP 16–21; TEMP 37.2–38.8; O2SAT 93–99; BMI 37.6
--- NOTE | 2021-06-23 07:33 | RAD_ITS ---
STUDY: X-RAY CHEST REASON FOR EXAM: Male, 51 years old. Cough. TECHNIQUE: Single AP portable view of the chest. COMPARISON: 2421. FINDINGS: Prominence of the pulmonary vasculature. No focal infiltrate is seen. There is no demonstrated pleural abnormality. There is borderline cardiomegaly. Normal mediastinum and chloe. Normal visualized pulmonary arteries. Normal visualized aortic arch and descending thoracic aorta. Stable osseous structures. There is no demonstrated abnormality of the visualized soft tissue structures of the upper abdomen. RAD/Chest 1 View (Portable) IMPRESSION: Mild pulmonary venous congestion. Electronically Signed: Willam Reyes MD at 9:52 EDT Tel , Service support ,
--- NOTE | 2021-06-23 07:34 | EDS_ITS ---
HPI History of Present Illness Chief Complaint: Nausea/Vomiting/Diarrhea Informant: patient Onset/Context/Timing Onset: Days (4 days) Context: Gradual Onset Current Severity: Moderate Maximum Severity: Moderate Narrative Narrative: Patient presents secondary to concerns for dehydration and not feeling well. He states he has not felt great for the last week or so, but over the past 4 days significantly worse with body aches. He reports feeling hot then cold and breaking out in sweats. He did not check his temperature. He has a mild cough. He developed diarrhea with some vomiting. PFSH PFSH no medical history Home Medications NK 02/25/21 [History Last Taken Unknown] Allergy/AdvReac Type Severity Reaction Status Date / Time No Known Allergies Allergy Verified 06/23/21 07:19 Social History Smoking Status: Current every day smoker tobacco type: cigarettes ROS ROS ED Constitutional Constitutional ED: Reports chills, fever(s), subjective and sweats Eyes Eyes: Denies change in vision ENT ENT ED: Denies sore throat Cardiovascular Cardiovascular: Denies chest pain Respiratory/Chest Respiratory/Chest: Reports cough; Denies dyspnea Gastrointestinal Gastrointestinal: Reports diarrhea, nausea and vomiting; Denies abdominal pain Genitourinary Genitourinary ED: Denies dysuria Musculoskeletal Musculoskeletal: Reports myalgias; Denies back pain Integumentary Denies rash Neurologic Neurologic: Reports headache(s); Denies weakness Allergic/Immunologic Allergic/Immunologic ED: Denies urticaria EXAM Physical Exam Const Vital Signs: 06/23/21 07:17 06/23/21 10:15 Temperature 99.0 F Temperature Source Temporal Pulse Rate 109 H 87 Respiratory Rate 20 H 21 H Blood Pressure 114/81 H 116/59 L Blood Pressure Mean 92 78 Pulse Ox 94 94 Oxygen Delivery Method Room Air Positive well nourished and well developed General Appearance ED: well developed HEENT Reports normocephalic and head/scalp atraumatic Eyes PERRL and EOMs intact bilaterally Neck supple Chest Wall inspection of chest normal and palpation of chest normal Resp normal respiratory effort and clear to auscultation bilaterally Cardio regular rate and regular rhythm GI non-tender Auscultation: hypoactive bowel sounds Palpation: soft Extremity normal to inspection Neuro oriented x3 and no sensory deficits noted Sensorium / Orientation: alert Motor Exam: strength 5/5 throughout Psych mental status grossly normal Skin no rashes or lesions noted MDM MDM MDM Narrative Medical decision making narrative: Lab work, chest x-ray, Covid test obtained. He was given a 500 cc IV fluid bolus along with Toradol and Zofran. Nursing staff states that after they put him on the pulse ox meter his O2 sat dropped to 82% with good waveform. He was placed on 5 L nasal cannula. Lab Data Attestation: I reviewed the patient's lab results. Labs: Laboratory Results - last 24 hr 06/23/21 06/23/21 06/23/21 07:50 07:50 07:50 WBC 4.5 RBC 5.15 Hgb 16.0 Hct 45.7 MCV 88.7 MCH 31.1 MCHC 35.0 RDW Std Deviation 43.5 RDW Coeff of Alejandra 13.4 Plt Count 128 L MPV 10.4 Immature Gran % (Auto) 0.900 Neut % (Auto) 70.4 H Lymph % (Auto) 20.2 [place] % (Auto) 8.3 Eos % (Auto) 0.0 Baso % (Auto) 0.2 Absolute Neuts (auto) 3.1 Absolute Lymphs (auto) 0.90 Nucleated RBC % 0 Sodium 129 L Potassium 3.7 Chloride 95 L Carbon Dioxide 22.0 Anion Gap 12 BUN 18 Creatinine 1.04 Estim Creat Clear Calc 87.49 Est GFR (MDRD) Af Amer 96 Est GFR (MDRD) Non-Af 79 BUN/Creatinine Ratio 17.3 Glucose 118 H Lactic Acid 0.9 Calcium 8.3 L Total Bilirubin 0.60 AST 64 H ALT 65 H Alkaline Phosphatase 66 Total Protein 7.9 Albumin 3.7 Globulin 4.2 Albumin/Globulin Ratio 0.9 Rapid Covid test positive Radiography Chest X-Ray - ED: 1 View, Read by ED Physician, Right Infiltrate and Left Infiltrate Diagnostic Testing: Radiology Impression Chest X-Ray 06/23/21 07:33 IMPRESSION: Mild pulmonary venous congestion. Electronically Signed: Willam Reyes MD at 9:52 EDT Tel , Service support , Chest CTA 06/23/21 08:36 IMPRESSION: 1. No evidence of central pulmonary embolism. Suboptimal evaluation of the peripheral branches. 2. Patchy bilateral infiltrates concerning for multifocal pneumonia. Septic emboli is less likely. 3. Fatty infiltration of the liver. 4. Mild splenomegaly. Electronically Signed: Willam Reyes MD at 10:00 EDT Tel , Service support , Treatment and Re-Evaluation Comments:: Test results discussed with patient. He is Covid positive. Blood work remarkable for sodium of 129. CTA of the chest reveals no evidence of PE but bilateral infiltrates are noted. Patient was hypoxic on room air, currently on 5 L nasal cannula. He is given a dose of Decadron. I will speak with hospitalist regarding admission. Discharge Plan Dx/Rx/DC Orders Clinical Impression: COVID-19, Hypoxia, Hyponatremia Disposition Disposition: Acute Care [facility]
[2021-06-23] MEDS: Ondansetron 4 MG/2 ML Vial IV (07:47)
[2021-06-23] MEDS: Ketorolac 30 MG/ML Syringe IV (07:48)
[2021-06-23 08:03] LABS: Absolute Neutrophil Count 3.1 X10^3/uL (2.0-7.7); Basophil# 0.01 X10^3/uL; Basophil% 0.2 % (0-1); Hematocrit 45.7 % (40-54); Lymphocyte % 20.2 % (19-41); Mean Corpuscular Hgb 31.1 pg (27.0-32.0); Mean Corpuscular Volume 88.7 fL (80-94); Mean Platelet Vol. 10.4 fl (6.2-12.0); Monocyte# 0.37 X10^3/uL; Monocyte% 8.3 % (0-10); NRBC Flagged by Analyzer 0 % (0-5); Neutrophil # 3.13 X10^3/uL (2.7-7.7); Neutrophil % 70.4 % (47-70); Platelet Count 128 K/mm3 (150-450); RBC Distribution Width CV 13.4 % (11.6-14.6); RBC Distribution Width SD 43.5 fl (35.1-43.9); Red Blood Count 5.15 M/mm3 (4.6-6.2); White Blood Count 4.5 K/mm3 (4.4-11.0)
[2021-06-23 08:19] LABS: ALB/GLOB Ratio 0.9 RATIO (0.9-2.4); AST(SGOT) 64 U/L (15-37); Alanine Aminotransfer ALT/SGPT 65 U/L (16-61); Albumin, Serum 3.7 g/dL (3.2-5.0); Alkaline Phosphatase 66 U/L (45-117); Anion Gap 12 (5-15); BUN 18 mg/dL (7-18); BUN/Creat Ratio 17.3 RATIO (10-20); Calcium,Total 8.3 mg/dL (8.5-10.1); Chloride 95 mmol/L (98-107); Creatinine, Serum 1.04 mg/dL (0.70-1.30); EST Glomerular Filtration Rate 79 mL/min (>60); Est Glom Filt Rate - Afr Amer 96 mL/min (>60); Estimated Creatinine Clearance 87.49 ml/min; Globulin 4.2 g/dL (2.2-4.2); Glucose 118 mg/dL (74-106); Potassium 3.7 mmol/L (3.5-5.1); Protein, Total 7.9 g/dL (6.4-8.2); Sodium Level 129 mmol/L (136-145)
[2021-06-23 08:29] LABS: Lactic Acid 0.9 mmol/L (0.4-1.9)
--- NOTE | 2021-06-23 08:36 | CT_ITS ---
STUDY: CTA CHEST REASON FOR EXAM: Male, 51 years old. Shortness of breath RADIATION DOSAGE (If Supplied By Facility): CTDIvol = ( 18.05 ) mGy, DLP = ( 758.76 ) mGycm TECHNIQUE: The examination was performed with the intravenous administration of IV 100mL Isovue-370. Post-processing of the angiographic images was performed, with multiplanar reformation and 3D reconstruction. Individualized dose optimization techniques were used for this CT. COMPARISON: None. FINDINGS: Normal enhancement of the main pulmonary artery and right and left pulmonary arteries. There is limited enhancement of the bilateral peripheral pulmonary arteries. There is no demonstrated pulmonary embolism. Difficult to exclude small pulmonary embolism in the distal peripheral branches. There is atherosclerotic calcification of the aortic arch. There is no demonstrated aortic dissection. Normal heart and pericardium. Normal mediastinum. Normal hilar regions. Normal visualized trachea and bronchi. Patchy bilateral infiltrates and groundglass opacities concerning for multifocal pneumonia. Underlying pulmonary nodules cannot be excluded. Probable small cavitary lesion in the right upper lobe on axial image 149 series 2. Septic emboli is less likely but possible. There are no pleural effusions. Normal chest wall structures. Mild degenerative changes in the thoracic spine. The visualized portions of the upper abdomen demonstrate fatty infiltration. Mild hepatomegaly. CT/CTA Chest W/WO Contrast IMPRESSION: 1. No evidence of central pulmonary embolism. Suboptimal evaluation of the peripheral branches. 2. Patchy bilateral infiltrates concerning for multifocal pneumonia. Septic emboli is less likely. 3. Fatty infiltration of the liver. 4. Mild splenomegaly. Electronically Signed: Willam Reyes MD at 10:00 EDT Tel , Service support ,
[2021-06-23] MEDS: dexAMETHasone 4 MG/ML Vial 6 MG IV (10:23)
--- NOTE | 2021-06-23 10:43 | NURSING ---
DR WILSON FOR DR MILLAN
--- NOTE | 2021-06-23 10:48 | NURSING ---
MED SURG [facility] COVID PNEUMONIA, HYPOXIA
--- NOTE | 2021-06-23 12:27 | PCM.HP.STD ---
Documented by User: Aby Steele NP-C 06/23/21 12:41 HPI - General General Date of Admission: 06/23/21 Date of Service: 06/23/21 Chief Complaint: Shortness of breath HPI Narrative MAXIME ZAMUDIO, is a 51 M who presents with complaints of not feeling well and being short of breath over the past 4 days. Patient states that he is having body aches and reports fever and chills. Patient also reports that he has had nausea and vomiting with some diarrhea over the past 4 days. Patient reports that he is not currently vaccinated against COVID-19. Patient is laying in bed currently on 5 L nasal cannula oxygen. [facility] Medical History Anxiety Chest pain DVT (deep venous thrombosis) GERD (gastroesophageal reflux disease) Kidney stones Smoker no medical history Home Medications NK 02/25/21 [History Last Taken Unknown] Allergy/AdvReac Type Severity Reaction Status Date / Time No Known Allergies Allergy Verified 06/23/21 12:59 no surgical history Social History (Updated 06/23/21 @ 12:30 by Aby Steele NP-C) Smoking Status: Current every day smoker tobacco type: cigarettes Smoking packs per day: 0.5 Smoking cigarettes per day: 10.0 alcohol intake: current alcohol intake frequency: holidays/special occasions only substance use type: does not use ROS Constitutional Constitutional: Reports chills, fatigue, fever(s), malaise and weakness; Denies anorexia Cardiovascular Cardiovascular: Denies chest pain, edema, palpitations or syncope Respiratory/Chest Respiratory/Chest: Reports cough, shortness of breath at rest, shortness of breath with exertion and wheezing Gastrointestinal Gastrointestinal: Reports diarrhea, nausea and vomiting; Denies abdominal pain or constipation Genitourinary Genitourinary: Denies dysuria Musculoskeletal Musculoskeletal: Denies back pain, extremity pain, joint pain or joint stiffness Integumentary Integumentary: Denies dry skin Neurologic Neurologic: Denies abnormal gait, abnormal speech, confusion or dizziness Psychiatric Psychiatric: Denies anxiety or depression Endocrine Endocrinology: Denies change in body appearance Hematologic/Lymphatic Hematologic/Lymphatic: Denies anemia, easy bleeding or easy bruising Vital Signs Vital Signs Vital Signs: 06/23/21 07:17 06/23/21 10:15 06/23/21 11:23 Temperature 99.0 F 99.0 F Temperature Source Temporal Oral Pulse Rate 109 H 87 86 Respiratory Rate 20 H 21 H 16 Blood Pressure 114/81 H 116/59 L 108/70 Blood Pressure Mean 92 78 82 Pulse Ox 94 94 99 Oxygen Delivery Method Room Air Nasal Cannula Oxygen Flow Rate (L/min) 4 Weight Weight: 270 lb Body Mass Index (BMI) 37.6 Physical Exam Const alert, oriented x3 and no apparent distress General Appearance: cooperative HEENT normocephalic and head/scalp atraumatic Eyes conjunctivae normal and no scleral icterus Neck supple and no JVD General: trachea midline Resp no use of accessory muscles Effort and Inspection: tachypneic Auscultation: wheezes expiratory wheezes and throughout and diminished lung sounds bilateral throughout Cardio regular rate, regular rhythm, S1 normal heart sound and S2 normal heart sound GI normal to inspection, nondistended, normoactive bowel sounds, soft to palpation and non-tender Extremity normal capillary refill and no clubbing, cyanosis or edema General Extremity: no tenderness to palpation of joints or extremities Skin General Skin Exam: no breakdown and turgor normal Lesions: no lesions Rashes: no rashes Neuro no focal motor deficits and no sensory deficits noted Speech: speech normal Motor Exam: general weakness Psych thought process normal, cooperative and affect normal Appearance: appropriate Results Lab / Micro Data Result Diagrams: 06/23/21 07:50 06/23/21 07:50 Labs: Laboratory Results - last 24 hr 06/23/21 07:50: WBC 4.5, RBC 5.15, Hgb 16.0, Hct 45.7, MCV 88.7, MCH 31.1, MCHC 35.0, RDW Std Deviation 43.5, RDW Coeff of Alejandra 13.4, Plt Count 128 L, MPV 10.4, Immature Gran % (Auto) 0.900, Neut % (Auto) 70.4 H, Lymph % (Auto) 20.2, [place] % (Auto) 8.3, Eos % (Auto) 0.0, Baso % (Auto) 0.2, Absolute Neuts (auto) 3.1, Absolute Lymphs (auto) 0.90, Nucleated RBC % 0 06/23/21 07:50: Sodium 129 L, Potassium 3.7, Chloride 95 L, Carbon Dioxide 22.0, Anion Gap 12, BUN 18, Creatinine 1.04, Estim Creat Clear Calc 87.49, Est GFR (MDRD) Af Amer 96, Est GFR (MDRD) Non-Af 79, BUN/Creatinine Ratio 17.3, Glucose 118 H, Calcium 8.3 L, Total Bilirubin 0.60, AST 64 H, ALT 65 H, Alkaline Phosphatase 66, Total Protein 7.9, Albumin 3.7, Globulin 4.2, Albumin/Globulin Ratio 0.9 06/23/21 07:50: Lactic Acid 0.9 Micro: Microbiology 06/23/21 07:45 Nasal Secretion SARS-CoV-2 Antigen (Rapid) - Final SARS-CoV-2 (COVID 19) Radiology Impression Chest X-Ray 06/23/21 07:33 IMPRESSION: Mild pulmonary venous congestion. Electronically Signed: Willam Reyes MD at 9:52 EDT Tel , Service support , Chest CTA 06/23/21 08:36 IMPRESSION: 1. No evidence of central pulmonary embolism. Suboptimal evaluation of the peripheral branches. 2. Patchy bilateral infiltrates concerning for multifocal pneumonia. Septic emboli is less likely. 3. Fatty infiltration of the liver. 4. Mild splenomegaly. Electronically Signed: Willam Reyes MD at 10:00 EDT Tel , Service support , Assessment & Plan Assessment/Plan (1) COVID-19: (2) Hypoxia: PLAN: 1. Acute hypoxic respiratory failure secondary to COVID-19 pneumonia -Admit to MedSurg -Oxygen therapy as needed, currently on 5 L nasal cannula, pulse ox 99% -Vital signs per protocol -CBC and CMP ordered daily -Patient initiated on dexamethasone in ER will continue along with remdesivir -As needed albuterol nebulizer treatments ordered -P.o. Tylenol and IV Zofran ordered for symptom management -Encourage incentive spirometry 2. Sepsis -Secondary to #1 3. Thrombocytopenia -Likely secondary to viral infection -CBC ordered daily, will trend 4. Hyponatremia -Likely secondary to dehydration from nausea and vomiting from Covid 19. -Patient received normal saline 500 mL bolus in ER -CMP ordered daily, will trend 5. Tobacco abuse -Inpatient smoking cessation ordered -Patient denies need for nicotine patch at this time DVT prophylaxis-subcu Lovenox This patient was seen by HEATHER Carey under the supervision of Dr. Salmeron. Documented by User: Dr. Scot Salmeron, 06/23/21 15:16 HPI - General General Date of Admission: 06/23/21 [facility] Medical History Anxiety Chest pain DVT (deep venous thrombosis) GERD (gastroesophageal reflux disease) Kidney stones Smoker Home Medications NK 02/25/21 [History Last Taken Unknown] Allergy/AdvReac Type Severity Reaction Status Date / Time No Known Allergies Allergy Verified 06/23/21 12:59 Social History (Updated 06/23/21 @ 12:30 by HEATHER Carey) Smoking Status: Current every day smoker tobacco type: cigarettes Smoking packs per day: 0.5 Smoking cigarettes per day: 10.0 alcohol intake: current alcohol intake frequency: holidays/special occasions only substance use type: does not use Results Lab / Micro Data Result Diagrams: 06/23/21 07:50 06/23/21 07:50 Charges/Coding Addendum Addendum: Patient was seen and examined independently of Veronica Steele, he came to the emergency room today with complaints of increasing shortness of breath over the last 4 days along with body aches. Patient has not been vaccinated for COVID-19. On examination he appeared older than his stated age. Vital signs as documented. Skin warm and dry and without overt rashes. Neck without JVD, neck was supple, trachea midline, thyroid was normal. Lungs clear bilaterally, normal air movement was noted. Heart exam notable for regular rhythm, normal sounds and absence of murmurs, rubs or gallops. Abdomen unremarkable and without evidence of organomegaly, masses, or abdominal aortic enlargement. Bowel sounds are present, abdomen is not distended. Extremities nonedematous, no cyanosis was noted, no clubbing was noted. Neuro: Cranial nerves II through XII are grossly intact, no focal motor deficits were noted, sensation to light touch and pinprick intact, motor exam 5/5 throughout. Psych: Patient is alert and oriented x3, he does not appear anxious or depressed, he does not appear agitated. Work-up in the emergency room included a CT of the chest which showed bilateral infiltrates suggestive of COVID-19, no evidence of pulmonary embolism was noted. Patient's COVID-19 test was positive. Lab work showed a sodium of 129. Patient required 5 L via nasal cannula to maintain his pulse ox above 90%. Patient was admitted to [place] [address] with a diagnosis of Covid 19 pneumonia and acute hypoxic respiratory failure. He will be given remdesivir and dexamethasone. I have reviewed Veronica Steele's history and physical including her medical assessment and plan of care and endorse it. Visit Charges Inpatient E&M: 02821 Init Hosp L3
[2021-06-23] MEDS: Enoxaparin 40 MG/0.4 ML Syringe SC (13:31)
[2021-06-23] MEDS: 0.9% Saline Lock 10 ML Syringe IV (13:32)
[2021-06-23] MEDS: Acetaminophen 325 MG Tablet 650 MG PO ×2 (15:22→22:21)
--- NOTE | 2021-06-23 22:49 | NURSING ---
1900 pandemic documentation
[2021-06-24] VITALS (12 sets, daily range): BP systolic 123–132; BP diastolic 60–87; PULSE 83–100; RESP 18–28; TEMP 37.4–39.2; O2SAT 85–98
[2021-06-24] MEDS: 0.9% Saline Lock 10 ML Syringe IV ×2 (02:10→11:02)
[2021-06-24] MEDS: Ondansetron 4 MG/2 ML Vial IV (02:10)
[2021-06-24] MEDS: Acetaminophen 325 MG Tablet 650 MG PO ×2 (04:16→11:03)
[2021-06-24 06:23] LABS: Absolute Lymphocyte Count 0.89 X10^3/uL (0.83-4.51); Basophil# 0.02 X10^3/uL; Basophil% 0.5 % (0-1); Hematocrit 44.4 % (40-54); Hemoglobin 14.8 g/dL (13.0-16.5); Lymphocyte # 0.89 X10^3/ul (0.83-4.51); Lymphocyte % 21.2 % (19-41); Mean Corp Hgb Conc 33.3 g/dL (32-36); Mean Corpuscular Hgb 30.3 pg (27.0-32.0); Monocyte# 0.29 X10^3/uL; Monocyte% 6.9 % (0-10); NRBC Flagged by Analyzer 0 % (0-5); Neutrophil # 2.97 X10^3/uL (2.7-7.7); Neutrophil % 70.9 % (47-70); Platelet Count 131 K/mm3 (150-450); RBC Distribution Width CV 13.2 % (11.6-14.6); RBC Distribution Width SD 44.5 fl (35.1-43.9); Red Blood Count 4.88 M/mm3 (4.6-6.2); White Blood Count 4.2 K/mm3 (4.4-11.0)
[2021-06-24 06:54] LABS: ALB/GLOB Ratio 0.8 RATIO (0.9-2.4); AST(SGOT) 49 U/L (15-37); Alanine Aminotransfer ALT/SGPT 54 U/L (16-61); Albumin, Serum 3.2 g/dL (3.2-5.0); Alkaline Phosphatase 58 U/L (45-117); Anion Gap 9 (5-15); BUN 21 mg/dL (7-18); BUN/Creat Ratio 25.3 RATIO (10-20); Calcium,Total 7.9 mg/dL (8.5-10.1); Chloride 95 mmol/L (98-107); Creatinine, Serum 0.83 mg/dL (0.70-1.30); EST Glomerular Filtration Rate 103 mL/min (>60); Est Glom Filt Rate - Afr Amer 124 mL/min (>60); Estimated Creatinine Clearance 109.62 ml/min; Glucose 119 mg/dL (74-106); Potassium 3.4 mmol/L (3.5-5.1); Protein, Total 7.2 g/dL (6.4-8.2); Sodium Level 129 mmol/L (136-145)
--- NOTE | 2021-06-24 08:30 | NURSING ---
O2 SAT 85% ON 4L WHILE ASLEEP, 87% ON 5L WHILE ASLEEP, 98% 6L WHILE AWAKE
[2021-06-24] MEDS: Enoxaparin 40 MG/0.4 ML Syringe SC (11:01)
[2021-06-24] MEDS: dexAMETHasone 4 MG Tablet 6 MG PO (11:01)
--- NOTE | 2021-06-24 12:02 | NURSING ---
PT C/O GENERALIZED BODY ACHES - TYLENOL INEFFECTIVE - NEW ORDER RECEIVED
--- NOTE | 2021-06-24 12:50 | CASEMGMT ---
SAMANTHA RAMIREZ Assessment: Face to Face with pt for initial transition planning/care coordination assessment. RN ASHELY introduced self and role at [facility], pt voices understanding and consents to assessment. Pt is A/O x4 and answers all questions appropriately at this time. Pt lying in bed with O2 on in no distress. Care providers, pharmacy, and demographics verified/updated. Admitting Dx: COVID 19 PNA PCP: Abdoul Hayes, LESLIE Specialists: Pt denies. Preferred Pharmacy: [facility] Insurance: [employer] Prescription Benefit: yes LW/HPOA: Pt denies having a LW/DPOA and denies need for info regarding AD. LNOK: Rodrick Hooks, friend Living Arrangements: Pt lives with his friend Rodrick and Rodrick's son in a single story house with 3-4 steps to enter with a rail. Pt reports being I in ADL's and denies concerns at home. Transportation: Pt drives self and denies concerns with transportation. DME/HHC/SNF: Pt denies having any DME. Pt states he has had previous HHC but is unsure of the name of the agency. He denies SNF stays. Pt reports he was first tested at [facility] for COVID. He states he can quarantine from other members in the house by using separate bedrooms and bathrooms. Pt has family who can provide him with groceries and supplies. Provided pt with a verbal list of local in network DME companies, pt chose [employer] should he need home O2. Pt states no concerns with going home at time of dc. Pt states no further concerns/needs. CM to follow. Advised pt to ask CM if any further question/concerns/needs arise, voices understanding. Pt Goal: Home Plan: Home
[2021-06-24] MEDS: HYDROcodone Bitartrate/Apap 5/325 Tablet PO ×2 (13:49→21:43)
--- NOTE | 2021-06-24 17:18 | PCM.PN.HOSP ---
Subjective Subjective Patient was seen and examined today, he remained stable at the time of this dictation on 3 L via nasal cannula. Patient does not complain of any fever, chills, shortness of breath. Objective Data Objective Data Vital Signs: Vital Signs Temp Pulse Resp BP Pulse Ox 99.7 F H 91 20 H 132/82 H 98 06/24/21 13:47 06/24/21 13:47 06/24/21 13:47 06/24/21 13:47 06/24/21 13:57 Oxygen Flow Rate (L/min) 3 Oxygen Delivery Method Nasal Cannula Weight: 122.47 kg Body Mass Index (BMI) 37.6 Intake & Output: Intake and Output for Last 24 Hours 06/22/21 06/23/21 06/24/21 23:59 23:59 23:59 Intake Total 750 / 1190 2910 / 2910 Output Total 1000 / 1000 Balance 750 / 1190 1909 / 191 Lab / Micro Data Result Diagrams: 06/24/21 05:10 06/24/21 05:10 Labs: Laboratory Results - last 24 hr 06/24/21 05:10: WBC 4.2 L, RBC 4.88, Hgb 14.8, Hct 44.4, MCV 91.0, MCH 30.3, MCHC 33.3, RDW Std Deviation 44.5 H, RDW Coeff of Alejandra 13.2, Plt Count 131 L, MPV 11.0, Immature Gran % (Auto) 0.500, Neut % (Auto) 70.9 H, Lymph % (Auto) 21.2, [place] % (Auto) 6.9, Eos % (Auto) 0.0, Baso % (Auto) 0.5, Absolute Neuts (auto) 3.0, Absolute Lymphs (auto) 0.89, Nucleated RBC % 0 06/24/21 05:10: Sodium 129 L, Potassium 3.4 L, Chloride 95 L, Carbon Dioxide 25.0, Anion Gap 9, BUN 21 H, Creatinine 0.83, Estim Creat Clear Calc 109.62, Est GFR (MDRD) Af Amer 124, Est GFR (MDRD) Non-Af 103, BUN/Creatinine Ratio 25.3 H, Glucose 119 H, Calcium 7.9 L, Total Bilirubin 0.50, AST 49 H, ALT 54, Alkaline Phosphatase 58, Total Protein 7.2, Albumin 3.2, Globulin 4.0, Albumin/Globulin Ratio 0.8 L Micro: Microbiology 06/23/21 07:45 Nasal Secretion SARS-CoV-2 Antigen (Rapid) - Final SARS-CoV-2 (COVID 19) Physical Exam Const alert, oriented x3 and no apparent distress General Appearance: cooperative, well kempt and well developed Orientation / Consciousness: awake, oriented to person, oriented to place and oriented to time HEENT normocephalic, head/scalp atraumatic and moist oral mucous membranes Head and Scalp: normocephalic Eyes PERRL, EOMs intact bilaterally and conjunctivae normal Neck nuchal rigidity, supple, no JVD, thyroid normal and no carotid bruits General: trachea midline Resp normal respiratory effort, no retractions, no use of accessory muscles and clear to auscultation bilaterally Auscultation: Negative for rales, rhonchi or wheezes Cardio regular rate, regular rhythm, S1 normal heart sound, S2 normal heart sound, no murmurs, no rub, no gallops and no clicks GI normal to inspection, nondistended, normoactive bowel sounds, soft to palpation, non-tender and non-distended Extremity normal to inspection, full ROM and no clubbing, cyanosis or edema Skin no rashes or lesions noted, no wounds, skin turgor normal and no jaundice General Skin Exam: no breakdown Neuro oriented x3, CN's II-XII intact bilaterally, no focal motor deficits and no sensory deficits noted Sensorium / Orientation: awake and alert Speech: speech normal Psych thought process normal and affect normal Assessment & Plan Assessment/Plan (1) COVID-19: PLAN: 1. COVID-19 pneumonia-continue remdesivir and dexamethasone #2 acute hypoxic respiratory failure-continue to wean oxygen as tolerated #3 hyponatremia-continue to monitor #4 hypokalemia-patient will receive supplemental potassium #5 hyperlipidemia Charges/Coding Visit Charges Inpatient E&M: 96982 Subs Hosp L2
[2021-06-24] MEDS: Potassium Chloride Oral Tablet 20 MEQ 40 MEQ PO (18:12)
[2021-06-25] VITALS (7 sets, daily range): BP systolic 120–151; BP diastolic 78–89; PULSE 66–86; RESP 18–21; TEMP 36.6–37.5; O2SAT 94–97
[2021-06-25] MEDS: HYDROcodone Bitartrate/Apap 5/325 Tablet PO ×3 (04:19→17:53)
[2021-06-25] MEDS: Ondansetron 4 MG/2 ML Vial IV ×2 (04:20→21:17)
[2021-06-25 07:28] LABS: Absolute Lymphocyte Count 1.45 X10^3/uL (0.83-4.51); Absolute Neutrophil Count 2.7 X10^3/uL (2.0-7.7); Basophil# 0.02 X10^3/uL; Basophil% 0.4 % (0-1); Hemoglobin 15.4 g/dL (13.0-16.5); Lymphocyte # 1.45 X10^3/ul (0.83-4.51); Lymphocyte % 31.3 % (19-41); Mean Corp Hgb Conc 33.5 g/dL (32-36); Mean Corpuscular Hgb 30.7 pg (27.0-32.0); Mean Corpuscular Volume 91.8 fL (80-94); Mean Platelet Vol. 10.7 fl (6.2-12.0); Monocyte# 0.41 X10^3/uL; Monocyte% 8.9 % (0-10); NRBC Flagged by Analyzer 0 % (0-5); Neutrophil # 2.72 X10^3/uL (2.7-7.7); Neutrophil % 58.8 % (47-70); Platelet Count 153 K/mm3 (150-450); RBC Distribution Width CV 13.7 % (11.6-14.6); RBC Distribution Width SD 46.4 fl (35.1-43.9); Red Blood Count 5.01 M/mm3 (4.6-6.2); White Blood Count 4.6 K/mm3 (4.4-11.0)
[2021-06-25 08:03] LABS: ALB/GLOB Ratio 0.8 RATIO (0.9-2.4); AST(SGOT) 51 U/L (15-37); Alanine Aminotransfer ALT/SGPT 51 U/L (16-61); Albumin, Serum 3.3 g/dL (3.2-5.0); Alkaline Phosphatase 56 U/L (45-117); Anion Gap 6 (5-15); BUN 18 mg/dL (7-18); BUN/Creat Ratio 25.5 RATIO (10-20); Calcium,Total 8.2 mg/dL (8.5-10.1); Chloride 99 mmol/L (98-107); EST Glomerular Filtration Rate 124 mL/min (>60); Est Glom Filt Rate - Afr Amer 150 mL/min (>60); Estimated Creatinine Clearance 129.98 ml/min; Globulin 4.1 g/dL (2.2-4.2); Glucose 132 mg/dL (74-106); Potassium 4.1 mmol/L (3.5-5.1); Protein, Total 7.4 g/dL (6.4-8.2); Sodium Level 131 mmol/L (136-145)
[2021-06-25] MEDS: Enoxaparin 40 MG/0.4 ML Syringe SC (09:58)
[2021-06-25] MEDS: 0.9% Saline Lock 10 ML Syringe IV (09:58)
[2021-06-25] MEDS: guaiFENesin 1,200 MG Tablet 1200 MG PO ×2 (09:58→21:09)
[2021-06-25] MEDS: dexAMETHasone 4 MG Tablet 6 MG PO (09:58)
--- NOTE | 2021-06-25 17:53 | PN.HOSP_ITS ---
Subjective Subjective Patient is seen and examined today, he does not complain of any chest discomfort fevers or chills. Patient is currently on 1 L via nasal cannula, I will have him checked on room air. Objective Data Objective Data Vital Signs: Vital Signs Temp Pulse Resp BP Pulse Ox 97.9 F 81 18 132/89 H 95 06/25/21 16:00 06/25/21 16:00 06/25/21 16:00 06/25/21 16:00 06/25/21 16:00 Oxygen Flow Rate (L/min) 1 Oxygen Delivery Method Nasal Cannula Weight: 122.47 kg Body Mass Index (BMI) 37.6 Intake & Output: Intake and Output for Last 24 Hours 06/23/21 06/24/21 06/25/21 23:59 23:59 23:59 Intake Total 750 / 1190 3410 / 3410 1250 / 1250 Output Total 1000 / 1000 550 / 550 Balance 750 / 1190 2410 / 2410 700 / 700 Lab / Micro Data Result Diagrams: 06/25/21 07:10 06/25/21 07:10 Labs: Laboratory Results - last 24 hr 06/25/21 07:10: WBC 4.6, RBC 5.01, Hgb 15.4, Hct 46.0, MCV 91.8, MCH 30.7, MCHC 33.5, RDW Std Deviation 46.4 H, RDW Coeff of Alejandra 13.7, Plt Count 153, MPV 10.7, Immature Gran % (Auto) 0.600, Neut % (Auto) 58.8, Lymph % (Auto) 31.3, [place] % (Auto) 8.9, Eos % (Auto) 0.0, Baso % (Auto) 0.4, Absolute Neuts (auto) 2.7, Absolute Lymphs (auto) 1.45, Nucleated RBC % 0 06/25/21 07:10: Sodium 131 L, Potassium 4.1, Chloride 99, Carbon Dioxide 26.0, Anion Gap 6, BUN 18, Creatinine 0.70, Estim Creat Clear Calc 129.98, Est GFR (MDRD) Af Amer 150, Est GFR (MDRD) Non-Af 124, BUN/Creatinine Ratio 25.5 H, Glucose 132 H, Calcium 8.2 L, Total Bilirubin 0.40, AST 51 H, ALT 51, Alkaline Phosphatase 56, Total Protein 7.4, Albumin 3.3, Globulin 4.1, Albumin/Globulin Ratio 0.8 L Micro: Microbiology 06/23/21 07:46 Blood Culture (Wb) - Right Hand Blood Culture - Preliminary No growth in 48 hours. 06/23/21 07:50 Blood Culture (Wb) - Left Hand Blood Culture - Preliminary No growth in 48 hours. 06/23/21 07:45 Nasal Secretion SARS-CoV-2 Antigen (Rapid) - Final SARS-CoV-2 (COVID 19) Physical Exam Const alert, oriented x3, no apparent distress and healthy appearing General Appearance: cooperative, well kempt and well developed Orientation / Consciousness: awake, oriented to person, oriented to place and oriented to time HEENT normocephalic and moist oral mucous membranes Eyes PERRL, EOMs intact bilaterally and conjunctivae normal Neck nuchal rigidity, supple, no JVD, thyroid normal and no carotid bruits General: trachea midline Resp normal respiratory effort and clear to auscultation bilaterally Auscultation: Negative for rales, rhonchi or wheezes Cardio regular rate, regular rhythm, no murmurs, no rub and no gallops GI normal to inspection, nondistended, normoactive bowel sounds, soft to palpation, non-tender and non-distended Extremity no clubbing, cyanosis or edema Skin no rashes or lesions noted General Skin Exam: no breakdown Neuro oriented x3, CN's II-XII intact bilaterally, no focal motor deficits and no s ensory deficits noted Sensorium / Orientation: awake and alert Speech: speech normal Psych thought process normal and affect normal Assessment & Plan Assessment/Plan (1) COVID-19: PLAN: 1. COVID-19 pneumonia-patient has improved today, we will check his pulse ox on room air #2 acute hypoxic respiratory failure-again patient will be checked on room air #3 hyperlipidemia #4 hyponatremia-probably secondary to COVID-19, no treatment necessary #5 hypokalemia-corrected at this point Charges/Coding Visit Charges Inpatient E&M: 61690 Subs Hosp L2
[2021-06-25] MEDS: Acetaminophen 325 MG Tablet 650 MG PO (21:09)
[2021-06-26] MEDS: HYDROcodone Bitartrate/Apap 5/325 Tablet PO ×3 (00:21→18:56)
[2021-06-26 00:42] VITALS: O2SAT 97
[2021-06-26 04:10] VITALS: BP 124/91; PULSE 71; RESP 18; TEMP 36.6; O2SAT 94
[2021-06-26] MEDS: Acetaminophen 325 MG Tablet 650 MG PO ×2 (04:15→21:51)
[2021-06-26 07:00] VITALS: O2SAT 94
[2021-06-26 07:00] LABS: Absolute Lymphocyte Count 1.61 X10^3/uL (0.83-4.51); Absolute Neutrophil Count 2.2 X10^3/uL (2.0-7.7); Basophil# 0.01 X10^3/uL; Basophil% 0.2 % (0-1); Eosinophil# 0.01 X10^3/uL; Eosinophils% 0.2 % (0-5); Hematocrit 44.7 % (40-54); Hemoglobin 14.5 g/dL (13.0-16.5); Lymphocyte # 1.61 X10^3/ul (0.83-4.51); Lymphocyte % 37.2 % (19-41); Mean Corp Hgb Conc 32.4 g/dL (32-36); Mean Corpuscular Volume 92.5 fL (80-94); Mean Platelet Vol. 10.3 fl (6.2-12.0); Monocyte# 0.43 X10^3/uL; Monocyte% 9.9 % (0-10); NRBC Flagged by Analyzer 0 % (0-5); Neutrophil # 2.23 X10^3/uL (2.7-7.7); Neutrophil % 51.6 % (47-70); Platelet Count 181 K/mm3 (150-450); RBC Distribution Width CV 13.2 % (11.6-14.6); RBC Distribution Width SD 45.3 fl (35.1-43.9); Red Blood Count 4.83 M/mm3 (4.6-6.2); White Blood Count 4.3 K/mm3 (4.4-11.0)
[2021-06-26 07:46] LABS: ALB/GLOB Ratio 0.8 RATIO (0.9-2.4); AST(SGOT) 39 U/L (15-37); Alanine Aminotransfer ALT/SGPT 54 U/L (16-61); Albumin, Serum 3.1 g/dL (3.2-5.0); Alkaline Phosphatase 53 U/L (45-117); Anion Gap 4 (5-15); BUN 14 mg/dL (7-18); Calcium,Total 8.5 mg/dL (8.5-10.1); Chloride 102 mmol/L (98-107); Creatinine, Serum 0.58 mg/dL (0.70-1.30); EST Glomerular Filtration Rate 155 mL/min (>60); Est Glom Filt Rate - Afr Amer 187 mL/min (>60); Estimated Creatinine Clearance 156.88 ml/min; Globulin 3.7 g/dL (2.2-4.2); Glucose 116 mg/dL (74-106); Potassium 3.8 mmol/L (3.5-5.1); Protein, Total 6.8 g/dL (6.4-8.2); Sodium Level 136 mmol/L (136-145)
[2021-06-26 10:36] VITALS: BP 135/77; PULSE 72; RESP 18; TEMP 36.8; O2SAT 94
[2021-06-26] MEDS: dexAMETHasone 4 MG Tablet 6 MG PO (10:49)
[2021-06-26] MEDS: Enoxaparin 40 MG/0.4 ML Syringe SC (10:50)
[2021-06-26] MEDS: guaiFENesin 1,200 MG Tablet 1200 MG PO ×2 (10:51→21:51)
[2021-06-26] MEDS: 0.9% Saline Lock 10 ML Syringe IV (10:54)
[2021-06-26 17:16] VITALS: BP 154/85; PULSE 78; RESP 17; TEMP 37.3; O2SAT 93
--- NOTE | 2021-06-26 18:49 | PN.HOSP_ITS ---
Subjective Subjective Patient seen and examined today, he remains on 2 L via nasal cannula at this time Objective Data Objective Data Vital Signs: Vital Signs Temp Pulse Resp BP Pulse Ox 99.1 F 78 17 154/85 H 93 06/26/21 17:16 06/26/21 17:16 06/26/21 17:16 06/26/21 17:16 06/26/21 17:16 Oxygen Flow Rate (L/min) 2 Oxygen Delivery Method Room Air Weight: 122.47 kg Body Mass Index (BMI) 37.6 Intake & Output: Intake and Output for Last 24 Hours 06/24/21 06/25/21 06/26/21 23:59 23:59 23:59 Intake Total 3410 / 3410 2260 / 2260 550 / 550 Output Total 1000 / 1000 1050 / 1050 Balance 2410 / 2410 1210 / 1210 550 / 550 Lab / Micro Data Result Diagrams: 06/26/21 06:15 06/26/21 06:15 Labs: Laboratory Results - last 24 hr 06/26/21 06:15: WBC 4.3 L, RBC 4.83, Hgb 14.5, Hct 44.7, MCV 92.5, MCH 30.0, MCHC 32.4, RDW Std Deviation 45.3 H, RDW Coeff of Alejandra 13.2, Plt Count 181, MPV 10.3, Immature Gran % (Auto) 0.900, Neut % (Auto) 51.6, Lymph % (Auto) 37.2, [place] % (Auto) 9.9, Eos % (Auto) 0.2, Baso % (Auto) 0.2, Absolute Neuts (auto) 2.2, Absolute Lymphs (auto) 1.61, Nucleated RBC % 0 06/26/21 06:15: Sodium 136, Potassium 3.8, Chloride 102, Carbon Dioxide 30.0, Anion Gap 4 L, BUN 14, Creatinine 0.58 L, Estim Creat Clear Calc 156.88, Est GFR (MDRD) Af Amer 187, Est GFR (MDRD) Non-Af 155, BUN/Creatinine Ratio 24.0 H, Glucose 116 H, Calcium 8.5, Total Bilirubin 0.50, AST 39 H, ALT 54, Alkaline Phosphatase 53, Total Protein 6.8, Albumin 3.1 L, Globulin 3.7, Albumin/Globulin Ratio 0.8 L Micro: Microbiology 06/23/21 07:46 Blood Culture (Wb) - Right Hand Blood Culture - Preliminary No growth in 48 hours. 06/23/21 07:50 Blood Culture (Wb) - Left Hand Blood Culture - Preliminary No growth in 48 hours. 06/23/21 07:45 Nasal Secretion SARS-CoV-2 Antigen (Rapid) - Final SARS-CoV-2 (COVID 19) Physical Exam Narrative alert, oriented x3, no apparent distress and healthy appearing General Appearance: cooperative, well kempt and well developed Orientation / Consciousness: awake, oriented to person, oriented to place and oriented to time HEENT normocephalic and moist oral mucous membranes Eyes PERRL, EOMs intact bilaterally and conjunctivae normal Neck nuchal rigidity, supple, no JVD, thyroid normal and no carotid bruits General: trachea midline Resp normal respiratory effort and clear to auscultation bilaterally Auscultation: Negative for rales, rhonchi or wheezes Cardio regular rate, regular rhythm, no murmurs, no rub and no gallops GI normal to inspection, nondistended, normoactive bowel sounds, soft to palpation, non-tender and non-distended Extremity no clubbing, cyanosis or edema Skin no rashes or lesions noted General Skin Exam: no breakdown Neuro oriented x3, CN's II-XII intact bilaterally, no focal motor deficits and no sen jimmie deficits noted Sensorium / Orientation: awake and alert Speech: speech normal Psych thought process normal and affect normal Assessment & Plan Assessment/Plan (1) COVID-19: PLAN: 1. COVID-19 pneumonia-continue present treatment #2 acute hypoxic respiratory failure-supplemental oxygen will be weaned as tolerated #3 hyperlipidemia #4 hyponatremia-probably secondary to COVID-19, no treatment necessary #5 hypokalemia-corrected at this point Charges/Coding Visit Charges Inpatient E&M: 53182 Subs Hosp L2
[2021-06-26 21:45] VITALS: BP 145/78; PULSE 71; RESP 18; TEMP 37.2; O2SAT 97
[2021-06-27] VITALS (9 sets, daily range): BP systolic 122–149; BP diastolic 69–84; PULSE 68–84; RESP 16–18; TEMP 36.7–37.3; O2SAT 92–99
[2021-06-27] MEDS: HYDROcodone Bitartrate/Apap 5/325 Tablet PO ×3 (01:28→21:28)
[2021-06-27] MEDS: Acetaminophen 325 MG Tablet 650 MG PO (05:21)
[2021-06-27 06:59] LABS: Absolute Lymphocyte Count 2.15 X10^3/uL (0.83-4.51); Absolute Neutrophil Count 2.6 X10^3/uL (2.0-7.7); Basophil# 0.01 X10^3/uL; Basophil% 0.2 % (0-1); Eosinophil# 0.01 X10^3/uL; Eosinophils% 0.2 % (0-5); Lymphocyte # 2.15 X10^3/ul (0.83-4.51); Lymphocyte % 40.7 % (19-41); Mean Corp Hgb Conc 33.3 g/dL (32-36); Mean Corpuscular Hgb 30.5 pg (27.0-32.0); Mean Corpuscular Volume 91.5 fL (80-94); Monocyte# 0.48 X10^3/uL; Monocyte% 9.1 % (0-10); NRBC Flagged by Analyzer 0 % (0-5); Neutrophil # 2.57 X10^3/uL (2.7-7.7); Neutrophil % 48.7 % (47-70); Platelet Count 221 K/mm3 (150-450); RBC Distribution Width CV 13.2 % (11.6-14.6); RBC Distribution Width SD 44.7 fl (35.1-43.9); Red Blood Count 4.92 M/mm3 (4.6-6.2); White Blood Count 5.3 K/mm3 (4.4-11.0)
[2021-06-27 07:31] LABS: ALB/GLOB Ratio 0.8 RATIO (0.9-2.4); AST(SGOT) 44 U/L (15-37); Alanine Aminotransfer ALT/SGPT 60 U/L (16-61); Albumin, Serum 3.1 g/dL (3.2-5.0); Alkaline Phosphatase 59 U/L (45-117); Anion Gap 5 (5-15); BUN 12 mg/dL (7-18); BUN/Creat Ratio 17.2 RATIO (10-20); Calcium,Total 8.7 mg/dL (8.5-10.1); Chloride 101 mmol/L (98-107); EST Glomerular Filtration Rate 126 mL/min (>60); Est Glom Filt Rate - Afr Amer 152 mL/min (>60); Estimated Creatinine Clearance 129.98 ml/min; Glucose 111 mg/dL (74-106); Potassium 4.1 mmol/L (3.5-5.1); Protein, Total 7.1 g/dL (6.4-8.2); Sodium Level 136 mmol/L (136-145)
[2021-06-27] MEDS: guaiFENesin 1,200 MG Tablet 1200 MG PO ×2 (10:08→21:28)
[2021-06-27] MEDS: dexAMETHasone 4 MG Tablet 6 MG PO (10:08)
[2021-06-27] MEDS: Enoxaparin 40 MG/0.4 ML Syringe SC (10:08)
--- NOTE | 2021-06-27 19:18 | PCM.PN.HOSP ---
Subjective Subjective Patient was seen and examined today, he completed his remdesivir, he still requires 2 L of oxygen via nasal cannula. Objective Data Objective Data Vital Signs: Vital Signs Temp Pulse Resp BP Pulse Ox 98.1 F 76 18 122/69 H 95 06/27/21 15:32 06/27/21 15:32 06/27/21 15:32 06/27/21 15:32 06/27/21 15:35 Oxygen Flow Rate (L/min) 2 Oxygen Delivery Method Nasal Cannula Weight: 122.47 kg Body Mass Index (BMI) 37.6 Intake & Output: Intake and Output for Last 24 Hours 06/25/21 06/26/21 06/27/21 23:59 23:59 23:59 Intake Total 2260 / 2260 850 / 850 550 / 550 Output Total 1050 / 1050 450 / 450 Balance 1210 / 1210 850 / 850 100 / 100 Lab / Micro Data Result Diagrams: 06/27/21 06:25 06/27/21 06:25 Labs: Laboratory Results - last 24 hr 06/27/21 06:25: WBC 5.3, RBC 4.92, Hgb 15.0, Hct 45.0, MCV 91.5, MCH 30.5, MCHC 33.3, RDW Std Deviation 44.7 H, RDW Coeff of Alejandra 13.2, Plt Count 221, MPV 10.0, Immature Gran % (Auto) 1.100 H, Neut % (Auto) 48.7, Lymph % (Auto) 40.7, [place] % (Auto) 9.1, Eos % (Auto) 0.2, Baso % (Auto) 0.2, Absolute Neuts (auto) 2.6, Absolute Lymphs (auto) 2.15, Nucleated RBC % 0 06/27/21 06:25: Sodium 136, Potassium 4.1, Chloride 101, Carbon Dioxide 30.0, Anion Gap 5, BUN 12, Creatinine 0.70, Estim Creat Clear Calc 129.98, Est GFR (MDRD) Af Amer 152, Est GFR (MDRD) Non-Af 126, BUN/Creatinine Ratio 17.2, Glucose 111 H, Calcium 8.7, Total Bilirubin 0.50, AST 44 H, ALT 60, Alkaline Phosphatase 59, Total Protein 7.1, Albumin 3.1 L, Globulin 4.0, Albumin/Globulin Ratio 0.8 L Micro: Microbiology 06/23/21 07:46 Blood Culture (Wb) - Right Hand Blood Culture - Preliminary No growth in 48 hours. 06/23/21 07:50 Blood Culture (Wb) - Left Hand Blood Culture - Preliminary No growth in 48 hours. 06/23/21 07:45 Nasal Secretion SARS-CoV-2 Antigen (Rapid) - Final SARS-CoV-2 (COVID 19) Physical Exam Const alert, oriented x3, no apparent distress and healthy appearing General Appearance: cooperative, well kempt and well developed Orientation / Consciousness: awake, oriented to person, oriented to place and oriented to time HEENT normocephalic and moist oral mucous membranes Eyes PERRL, EOMs intact bilaterally and conjunctivae normal Neck nuchal rigidity, supple, no JVD, thyroid normal and no carotid bruits General: trachea midline Resp normal respiratory effort and clear to auscultation bilaterally Auscultation: Negative for rales, rhonchi or wheezes Cardio regular rate, regular rhythm, no murmurs, no rub and no gallops GI normal to inspection, nondistended, normoactive bowel sounds, soft to palpation, non-tender and non-distended Extremity no clubbing, cyanosis or edema Skin no rashes or lesions noted General Skin Exam: no breakdown Neuro oriented x3, CN's II-XII intact bilaterally, no focal motor deficits and no sensory deficits noted Sensorium / Orientation: awake and alert Speech: speech normal Psych thought process normal and affect normal Assessment & Plan Assessment/Plan (1) COVID-19: PLAN: 1. COVID-19 pneumonia-continue present treatment with dexamethasone #2 acute hypoxic respiratory failure-supplemental oxygen will be weaned as tolerated #3 hyperlipidemia #4 hyponatremia-probably secondary to COVID-19, no treatment necessary #5 hypokalemia-corrected at this point Charges/Coding Visit Charges Inpatient E&M: 79851 Subs Hosp L2
[2021-06-28 04:15] VITALS: O2SAT 94
[2021-06-28 04:18] VITALS: BP 147/94; PULSE 73; RESP 18; TEMP 36.7; O2SAT 94
[2021-06-28] MEDS: HYDROcodone Bitartrate/Apap 5/325 Tablet PO ×2 (04:23→10:28)
[2021-06-28 06:29] LABS: Absolute Lymphocyte Count 2.05 X10^3/uL (0.83-4.51); Absolute Neutrophil Count 5.4 X10^3/uL (2.0-7.7); Basophil# 0.03 X10^3/uL; Basophil% 0.4 % (0-1); Eosinophil# 0.03 X10^3/uL; Eosinophils% 0.4 % (0-5); Hematocrit 44.3 % (40-54); Hemoglobin 14.4 g/dL (13.0-16.5); Lymphocyte # 2.05 X10^3/ul (0.83-4.51); Lymphocyte % 24.7 % (19-41); Mean Corp Hgb Conc 32.5 g/dL (32-36); Mean Corpuscular Hgb 30.3 pg (27.0-32.0); Mean Corpuscular Volume 93.3 fL (80-94); Mean Platelet Vol. 10.1 fl (6.2-12.0); Monocyte# 0.74 X10^3/uL; Monocyte% 8.9 % (0-10); NRBC Flagged by Analyzer 0 % (0-5); Neutrophil # 5.37 X10^3/uL (2.7-7.7); Neutrophil % 64.8 % (47-70); Platelet Count 262 K/mm3 (150-450); RBC Distribution Width CV 13.2 % (11.6-14.6); RBC Distribution Width SD 45.1 fl (35.1-43.9); Red Blood Count 4.75 M/mm3 (4.6-6.2); White Blood Count 8.3 K/mm3 (4.4-11.0)
[2021-06-28 06:56] LABS: ALB/GLOB Ratio 0.8 RATIO (0.9-2.4); AST(SGOT) 45 U/L (15-37); Alanine Aminotransfer ALT/SGPT 92 U/L (16-61); Albumin, Serum 2.9 g/dL (3.2-5.0); Alkaline Phosphatase 59 U/L (45-117); Anion Gap 5 (5-15); BUN 12 mg/dL (7-18); BUN/Creat Ratio 16.8 RATIO (10-20); Calcium,Total 8.7 mg/dL (8.5-10.1); Chloride 101 mmol/L (98-107); Creatinine, Serum 0.72 mg/dL (0.70-1.30); EST Glomerular Filtration Rate 122 mL/min (>60); Est Glom Filt Rate - Afr Amer 148 mL/min (>60); Estimated Creatinine Clearance 126.37 ml/min; Globulin 3.6 g/dL (2.2-4.2); Glucose 103 mg/dL (74-106); Potassium 3.7 mmol/L (3.5-5.1); Protein, Total 6.5 g/dL (6.4-8.2); Sodium Level 137 mmol/L (136-145)
[2021-06-28 07:25] VITALS: BP 115/55; PULSE 70; RESP 16; TEMP 36.6; O2SAT 95
[2021-06-28] MEDS: Enoxaparin 40 MG/0.4 ML Syringe SC (09:53)
[2021-06-28] MEDS: dexAMETHasone 4 MG Tablet 6 MG PO (09:53)
[2021-06-28] MEDS: guaiFENesin 1,200 MG Tablet 1200 MG PO (09:53)
[2021-06-28 10:29] VITALS: O2SAT 92; O2SAT 93
--- NOTE | 2021-06-28 10:36 | PCM.DC ---
Discharge Instructions Diet Discharge Diet: No restrictions Activity Discharge Activity: Return to Normal Activity Weight Bearing Status: Full weight bearing Follow Up Care Test Results: Test results from this visit will be discussed in further detail at your follow-up appointment, if applicable. Discharge Plan Admission Admit Date/Time: 06/23/21 11:56 Primary Reason for Your Visit: COVID Attending Provider: Scot Salmeron Primary Care Provider: Margoth Whiting Instructions Additional Instructions / Restrictions: Quarantine for a total of 20 days after the first symptoms started-until 07/09/21 Discharge Orders/Prescriptions Prescriptions: New dexamethasone 2 mg tablet 2 mg PO DAILY Qty: 8 RF: 0 Referrals / Follow Up: Margoth Whiting, PA [Primary Care Provider] - See Referral Note (after quarantine over) Disposition Disposition (needs filled in before D/C Order can be placed): Home, Self Care
--- NOTE | 2021-06-28 11:24 | PCM.DC.SUM ---
Providers Date of Admission: 06/23/21 Date of Discharge: 06/28/21 Primary Care Physician: SELMA Gordon Reason For Visit: COVID-19 PNEUMONIA Diagnosis Discharge Diagnosis (1) COVID-19: Status: Acute Code(s): U07.1 - COVID-19 Plan: 1. COVID-19 pneumonia #2 acute hypoxic respiratory failure secondary to #1 #3 hyperlipidemia #4 hyponatremia #5 hypokalemia Medications at Discharge Home Medications dexamethasone 2 mg PO DAILY #8 tab 06/28/21 Hospital Course Operations None Procedures None Summary of Care Provided Minutes Spent on Discharge: 32 Hospital Course: This 51-year-old white male was seen in the emergency room at [facility] with complaints of malaise and being short of breath over the past 4 days. Patient reported fever and chills at home and body aches. Patient was not vaccinated against COVID-19. Patient required 5 L via nasal cannula to maintain his pulse ox in the emergency room, Covid test was obtained and this was positive. Labs were remarkable for sodium of 129, AST of 64, and an ALT of 65. Patient was admitted to [place] [address], he was placed on IV remdesivir and p.o. dexamethasone. Patient's medical status improved during his hospitalization, he had no untoward events. On 06/28/2021, patient was seen and examined: On examination he appeared in good health and spirits. Vital signs as documented. Skin warm and dry and without overt rashes. Neck without JVD, neck was supple, trachea midline, thyroid was normal. Lungs clear bilaterally, normal air movement was noted. Heart exam notable for regular rhythm, normal sounds and absence of murmurs, rubs or gallops. Abdomen unremarkable and without evidence of organomegaly, masses, or abdominal aortic enlargement. Bowel sounds are present, abdomen is not distended. Extremities nonedematous, no cyanosis was noted, no clubbing was noted. Neuro: Cranial nerves II through XII are grossly intact, no focal motor deficits were noted, sensation to light touch and pinprick intact, motor exam 5/5 throughout. Psych: Patient is alert and oriented x3, he does not appear anxious or depressed, he does not appear agitated. Patient appears stable for discharge to home on 06/28/2021, patient did not require supplemental oxygen at the time of discharge from the hospital. Weight / BMI Weight Weight: 122.47 kg Body Mass Index (BMI) 37.6 ABG / Lab / Microbiology Data Result Diagrams: 06/28/21 05:40 06/28/21 05:40 Laboratory: Laboratory Results - last 24 hr 06/28/21 05:40: WBC 8.3, RBC 4.75, Hgb 14.4, Hct 44.3, MCV 93.3, MCH 30.3, MCHC 32.5, RDW Std Deviation 45.1 H, RDW Coeff of Alejandra 13.2, Plt Count 262, MPV 10.1, Immature Gran % (Auto) 0.800, Neut % (Auto) 64.8, Lymph % (Auto) 24.7, [place] % (Auto) 8.9, Eos % (Auto) 0.4, Baso % (Auto) 0.4, Absolute Neuts (auto) 5.4, Absolute Lymphs (auto) 2.05, Nucleated RBC % 0 06/28/21 05:40: Sodium 137, Potassium 3.7, Chloride 101, Carbon Dioxide 31.0, Anion Gap 5, BUN 12, Creatinine 0.72, Estim Creat Clear Calc 126.37, Est GFR (MDRD) Af Amer 148, Est GFR (MDRD) Non-Af 122, BUN/Creatinine Ratio 16.8, Glucose 103, Calcium 8.7, Total Bilirubin 0.60, AST 45 H, ALT 92 H, Alkaline Phosphatase 59, Total Protein 6.5, Albumin 2.9 L, Globulin 3.6, Albumin/Globulin Ratio 0.8 L Microbiology: Microbiology 06/23/21 07:50 Blood Culture (Wb) - Left Hand Blood Culture - Final No growth in 5 days. 06/23/21 07:46 Blood Culture (Wb) - Right Hand Blood Culture - Final No growth in 5 days. 06/23/21 07:45 Nasal Secretion SARS-CoV-2 Antigen (Rapid) - Final SARS-CoV-2 (COVID 19) D/C Instructions Discharge Diet: No restrictions Weight Bearing Status: Full weight bearing Meaningful Use Info Meaningful Use Diagnoses (Choose all that apply): None applicable Discharge Plan Admission Admit Date/Time: 06/23/21 11:56 Primary Reason for Your Visit: COVID Attending Provider: Scot Salmeron Primary Care Provider: Margoth Whiting Instructions Additional Instructions / Restrictions: Quarantine for a total of 20 days after the first symptoms started-until 07/09/21 Discharge Orders/Prescriptions Prescriptions: New dexamethasone 2 mg tablet 2 mg PO DAILY Qty: 8 RF: 0 Referrals / Follow Up: Margoth Whiting, PA [Primary Care Provider] - See Referral Note (after quarantine over) Disposition Disposition (needs filled in before D/C Order can be placed): Home, Self Care Charges/Coding Visit Charges Inpatient E&M: 89868 Disch Hosp
--- NOTE | 2021-07-01 14:27 | CASEMGMT ---
SAMANTHA RAMIREZ Discharge Follow-up Phone Call: DIANA: 8 Strata: 2 07/01/21Call Date: Discharge Date: 06/28/21 Time of Call: 1428 Duration: 1 min Admitting Diagnosis: Covid SAMANTHA RAMIREZ attempted to complete follow-up phone call after recent hospitalization. No answer, unable to leave message as mailbox is full.
== END 2021-06-28 13:45 | disposition home or self-care (01) | DRG 177 ==
LOC: ED 10:34 → MS3 14:22
PROVIDERS: Admitting Provider Internal Medicine; Emergency Provider Emergency Medicine; PCP Physician Assistant; Visit Provider Internal Medicine
DX: U07.1 COVID-19 (principal); J12.82 Pneumonia due to coronavirus disease 2019; J96.01 Acute respiratory failure with hypoxia; E87.1 Hypo-osmolality and hyponatremia; E87.6 Hypokalemia; E78.5 Hyperlipidemia, unspecified; F17.210 Nicotine dependence, cigarettes, uncomplicated; D69.59 Other secondary thrombocytopenia; E86.0 Dehydration
CPT/HCPCS: 36415; 71045; 71275; 80053; 83605; 85025; 87040; 87426; 94762; 97802; 97803; 99251; 99285; J7040; J7050; Q9967; A4216; G0463; J2405

== ENCOUNTER 2023-02-03 09:19 | Emergency (ER) | payer BC, SELFPAY ==
[2023-02-03 09:21] VITALS: BP 192/111; PULSE 93; RESP 14; TEMP 36.5; O2SAT 98; BMI 38.7
--- NOTE | 2023-02-03 09:30 | CT_ITS ---
EXAM: CT ABDOMEN AND PELVIS WITH INTRAVENOUS CONTRAST CLINICAL INDICATION: abd pain -- IV PO Contrast TECHNIQUE: Helically acquired images were obtained of the abdomen and pelvis with intravenous contrast. This CT exam was performed using one or more of the following dose reduction techniques: automated exposure control, adjustment of the mA and/or kV according to patient size, and/or use of iterative reconstruction technique. CONTRAST: Oral and amp;amp; IV Gastrografin and amp;amp; 100mL Isovue-300 COMPARISON: 01/24/2019 FINDINGS: LOWER THORAX: Unremarkable. Lung bases are clear. No cardiomegaly. No significant pericardial effusion. ABDOMEN: LIVER: The liver is diffusely decreased in attenuation compatible with fatty infiltration. GALLBLADDER AND BILE DUCTS: Unremarkable. No calcified gallstones. No gallbladder distention or wall edema. No intra- or extrahepatic biliary ductal dilation. PANCREAS: Unremarkable. No focal cystic or solid mass. SPLEEN: Unremarkable. Normal size without focal cystic or solid mass. ADRENALS: Unremarkable. No nodules. KIDNEYS AND URETERS: Unremarkable. Normal renal size and position. No hydronephrosis. STOMACH AND BOWEL: Unremarkable. No stomach or bowel distention. No focal inflammatory change. PELVIS: APPENDIX: No evidence of acute appendicitis. BLADDER: Unremarkable. REPRODUCTIVE: Unremarkable as visualized. No mass. ABDOMEN and PELVIS: INTRAPERITONEAL SPACE: Unremarkable. No ascites or other fluid collection. No free air. BONES/JOINTS: Unremarkable. No suspicious lytic or blastic abnormality. SOFT TISSUES: There is an umbilical hernia which contains mesenteric fat. VASCULATURE: Unremarkable. Abdominal aorta is non-dilated. LYMPH NODES: Unremarkable. No enlarged lymph nodes. CT/Abdomen/Pelvis WITH Contrast IMPRESSION: No acute findings in the abdomen or pelvis. Electronically Signed: Jose Alberto Luciano MD at 11:54 EDT ,
--- NOTE | 2023-02-03 09:31 | EX.ED.DYSGE1 ---
HPI History of Present Illness Chief Complaint: Abd Pain Informant: patient Onset/Context/Timing Onset: Yesterday Current Severity: Moderate Maximum Severity: Moderate Narrative Narrative: Patient presents secondary to abdominal pain. States yesterday he developed left upper to mid abdominal pain. He states he knows he has a hernia over the mid abdomen and is not sure if this is related. He does report some nausea and vomiting as well as diarrhea. No blood associated. No fever. No prior abdominal surgeries. PFSH PFSH Medical History Abscess of right groin Anxiety Cellulitis Chest pain DVT (deep venous thrombosis) GERD (gastroesophageal reflux disease) Kidney stones Sepsis Smoker Home Medications naproxen sodium 220 mg tablet (Aleve) 440 mg PO DAILY 02/03/23 [History Last Taken Unknown] ondansetron 4 mg disintegrating tablet 4 mg PO Q8H PRN PRN Nausea #10 tabs 02/03/23 [Rx Last Taken Unknown] Allergy/AdvReac Type Severity Reaction Status Date / Time No Known Allergies Allergy Verified 02/03/23 09:22 Social History Smoking Status: Current every day smoker tobacco type: cigarettes alcohol intake: current alcohol intake frequency: holidays/special occasions only substance use type: does not use ROS ROS ED Constitutional Constitutional ED: Denies chills or fever(s) Eyes Eyes: Denies change in vision or discharge from eye(s) ENT ENT ED: Denies discharge from eye(s), rhinorrhea or sore throat Cardiovascular Cardiovascular: Denies chest pain or palpitations Respiratory/Chest Respiratory/Chest: Denies cough or dyspnea Gastrointestinal Gastrointestinal: Reports abdominal pain, diarrhea, nausea and vomiting Genitourinary Genitourinary ED: Reports urinary frequency; Denies dysuria Musculoskeletal Musculoskeletal: Denies back pain or extremity pain Integumentary Denies Abrasions or rash Neurologic Neurologic: Denies headache(s) or weakness Psychiatric Psychiatric: Denies anxiety or depression Allergic/Immunologic Allergic/Immunologic ED: Denies lip swelling or urticaria EXAM Physical Exam Const Vital Signs: 02/03/23 09:21 02/03/23 11:11 Temperature 97.7 F L Temperature Source Temporal Pulse Rate 93 72 Respiratory Rate 14 16 Blood Pressure 192/111 H 179/97 H Blood Pressure Mean 138 124 Pulse Ox 98 94 Oxygen Delivery Method Room Air Room Air Positive well nourished and well developed General Appearance ED: well developed HEENT Reports normocephalic and head/scalp atraumatic Eyes PERRL and EOMs intact bilaterally Neck supple Chest Wall inspection of chest normal and palpation of chest normal Resp normal respiratory effort and clear to auscultation bilaterally Cardio regular rate and regular rhythm GI GI Narrative: Abdomen soft with left mid abdominal point tenderness. No guarding or rebound. He does have a wide-based hernia noted over the midline. This is soft and reducible. Palpation: soft Back/Spine no CVA tenderness Extremity normal to inspection Neuro oriented x3 and no sensory deficits noted Sensorium / Orientation: alert Motor Exam: strength 5/5 throughout Psych mental status grossly normal Skin no rashes or lesions noted MDM MDM MDM Narrative Medical decision making narrative: Patient was given Toradol and Zofran for pain and nausea. Labwork obtained to evaluate for leukocytosis, anemia, and electrolyte derangement. CT scan of the abdomen pelvis obtained to evaluate for acute cause of pain. Lab Data Attestation: I reviewed the patient's lab results. Labs: Laboratory Results - last 24 hr 02/03/23 02/03/23 02:40 02:40 WBC 8.0 RBC 5.00 Hgb 15.3 Hct 46.0 MCV 92.0 MCH 30.6 MCHC 33.3 RDW Std Deviation 44.7 H RDW Coeff of Alejandra 13.2 Plt Count 243 MPV 10.1 Immature Gran % (Auto) 0.400 Neut % (Auto) 66.3 Lymph % (Auto) 23.4 [place] % (Auto) 7.0 Eos % (Auto) 2.1 Baso % (Auto) 0.8 Absolute Neuts (auto) 5.3 Absolute Lymphs (auto) 1.86 Nucleated RBC % 0 Sodium 142 Potassium 3.5 Chloride 108 H Carbon Dioxide 27.0 Anion Gap 7 BUN 10 Creatinine 0.86 Estim Creat Clear Calc 101.39 Est GFR (MDRD) Af Amer 119 Est GFR (MDRD) Non-Af 98 BUN/Creatinine Ratio 11.6 Glucose 110 H Calcium 9.0 Total Bilirubin 0.50 Direct Bilirubin 0.13 AST 28 ALT 60 Alkaline Phosphatase 81 Total Protein 7.2 Albumin 4.0 Globulin 3.2 Lipase 30 Radiography Diagnostic Testing: Clinical Impression(s) from Imaging Studies Abdomen/Pelvis CT 02/03/23 09:30 IMPRESSION: No acute findings in the abdomen or pelvis. Electronically Signed: Jose Alberto Luciano MD at 11:54 EDT , Differential Diagnosis Abdominal Pain: Cholecystitis Reason(s) Cholecystitis less likely: clinical exam does not support and NL Gall Bladder on imagng studies, Pancreatitis Reason(s) Pancreatitis less likely: clinical exam does not support and NL lab values and Bowel obstruction Reason(s) bowel obstruction less likely: no evidence of bowel obstruction on imaging studies Treatment and Re-Evaluation :: CBC and chemistry studies unremarkable. LFTs and lipase are normal. CT scan with p.o. and IV contrast reveals no acute findings. On repeat evaluation patient is sleeping comfortably. Nausea and pain are improved at this time. He will be given a prescription for Zofran. At this time patient does appear to have a wide-based abdominal hernia which I advised him he can follow-up on an elective basis as needed. I do not believe that this is the cause of his acute abdominal pain. I think he more likely has a viral gastroenteritis which we have been seeing a lot in the community. Discharge Plan Triage Chief Complaint: Abd Pain ED Provider: Melissa Nguyen Dx/Rx/DC Orders Clinical Impression: Abdominal pain, Gastroenteritis Instructions: ED Gastroenteritis, Viral (Adult) Prescriptions: New ondansetron 4 mg tablet,disintegrating 4 mg PO Q8H PRN PRN (Reason: Nausea) Qty: 10 0RF No Action naproxen sodium [Aleve] 220 mg Tablet 440 mg PO DAILY Primary Care Provider: Margoth Whiting Referrals: Margoth Whiting, PA [Primary Care Provider] - 1 Week if not improving Disposition Disposition: Home, Self Care
[2023-02-03] MEDS: 0.9% Normal Saline 1,000 ML 150 ML IV (09:43)
[2023-02-03] MEDS: Ketorolac 30 MG/ML Syringe IV (09:43)
[2023-02-03] MEDS: Ondansetron 4 MG/2 ML Vial IV (09:44)
[2023-02-03 09:47] LABS: Absolute Lymphocyte Count 1.86 X10^3/uL (0.83-4.51); Absolute Neutrophil Count 5.3 X10^3/uL (2.0-7.7); Basophil# 0.06 X10^3/uL; Basophil% 0.8 % (0-1); Eosinophil# 0.17 X10^3/uL; Eosinophils% 2.1 % (0-5); Hemoglobin 15.3 g/dL (13.0-16.5); Lymphocyte # 1.86 X10^3/ul (0.83-4.51); Lymphocyte % 23.4 % (19-41); Mean Corp Hgb Conc 33.3 g/dL (32-36); Mean Corpuscular Hgb 30.6 pg (27.0-32.0); Mean Platelet Vol. 10.1 fl (6.2-12.0); Monocyte# 0.56 X10^3/uL; NRBC Flagged by Analyzer 0 % (0-5); Neutrophil # 5.28 X10^3/uL (2.7-7.7); Neutrophil % 66.3 % (47-70); Platelet Count 243 K/mm3 (150-450); RBC Distribution Width CV 13.2 % (11.6-14.6); RBC Distribution Width SD 44.7 fl (35.1-43.9)
[2023-02-03 10:10] LABS: AST(SGOT) 28 U/L (15-37); Alanine Aminotransfer ALT/SGPT 60 U/L (16-61); Alkaline Phosphatase 81 U/L (45-117); Anion Gap 7 (5-15); BUN 10 mg/dL (7-18); BUN/Creat Ratio 11.6 RATIO (10-20); Bilirubin, Direct 0.13 mg/dL (0.00-0.30); Chloride 108 mmol/L (98-107); Creatinine, Serum 0.86 mg/dL (0.70-1.30); EST Glomerular Filtration Rate 98 mL/min (>60); Est Glom Filt Rate - Afr Amer 119 mL/min (>60); Estimated Creatinine Clearance 101.39 ml/min; Globulin 3.2 g/dL (2.2-4.2); Glucose 110 mg/dL (74-106); Lipase 30 U/L (13-75); Potassium 3.5 mmol/L (3.5-5.1); Protein, Total 7.2 g/dL (6.4-8.2); Sodium Level 142 mmol/L (136-145)
[2023-02-03 11:11] VITALS: BP 179/97; PULSE 72; RESP 16; O2SAT 94
== END 2023-02-03 12:18 | disposition home or self-care (01) ==
PROVIDERS: Emergency Provider Emergency Medicine; PCP Physician Assistant; Visit Provider Emergency Medicine
DX: K52.9 Noninfective gastroenteritis and colitis, unspecified (principal); F17.210 Nicotine dependence, cigarettes, uncomplicated; R35.0 Frequency of micturition
CPT/HCPCS: 74177; 80048; 80076; 83690; 85025; 96361; 96374; 96375; 99282; J7030; Q9967; J2405

== ENCOUNTER 2023-04-27 10:28 | Inpatient (IN) | payer BC, SELFPAY ==
[2023-04-27] VITALS (24 sets, daily range): BP systolic 104–148; BP diastolic 57–106; PULSE 88–132; RESP 12–42; TEMP 35.8–37.1; O2SAT 85–97; BMI 39.6; BMI 40.8
--- NOTE | 2023-04-27 10:46 | EKG12_ITS ---
Test Reason : SOB Blood Pressure : / mmHG Vent. Rate : 111 BPM Atrial Rate : 111 BPM P-R Int : 136 ms QRS Dur : 096 ms QT Int : 352 ms P-R-T Axes : 034 075 057 degrees QTc Int : [address] depression, consider subendocardial injury Abnormal ECG Confirmed by ALVA ELAINE, KURT ([id number]), editor at large APPLE JAMES ([id number]) on 04/29/2023 9:18:51 AM Referred By: FRITZ Confirmed By:KURT CALLE MD
--- NOTE | 2023-04-27 10:49 | ED.VIS.DYS ---
HPI History of Present Illness Chief Complaint: Chest Pain Informant: patient Narrative Narrative: Presents by private vehicle increasing fatigue over the past week. Yesterday increasing cough productive sputum myalgias. Decreased p.o. intake. Tobacco history. Denies COPD or asthma. Previously had COVID requiring admission for a week. Denies vomiting or diarrhea denies urinary symptoms. States he has a headache. PFSH PFSH Medical History DVT (deep venous thrombosis) GERD (gastroesophageal reflux disease) HLD (hyperlipidemia) Kidney stones Morbid obesity Tobacco use Home Medications naproxen sodium 220 mg tablet (Aleve) 440 mg PO DAILY 02/03/23 [History Last Taken 04/26/23] Allergy/AdvReac Type Severity Reaction Status Date / Time No Known Allergies Allergy Verified 02/03/23 09:22 Family History Father Diabetes Heart disease Hypertension Mother Carbon monoxide poisoning Patient notes that his mother when he was less than 1 year old secondary to carbon monoxide poisoning. No significant medical history including heart disease, diabetes or cancer. Surgical History History of incision and drainage History of surgery on extremity History of tonsillectomy and adenoidectomy Social History household members: family Smoking Status: Current every day smoker tobacco type: cigarettes Smoking packs per day: 0.5 Smoking cigarettes per day: 10.0 alcohol intake: current alcohol intake frequency: holidays/special occasions only substance use type: does not use ROS ROS ED Constitutional Constitutional ED: Denies chills, fever(s) or sweats Eyes Eyes: Denies change in vision ENT ENT ED: Denies dysphagia or sore throat Cardiovascular Cardiovascular: Reports chest pain; Denies leg edema, palpitations or racing heartbeat Respiratory/Chest Respiratory/Chest: Reports cough and dyspnea; Denies dyspnea on exertion Gastrointestinal Gastrointestinal: Denies abdominal pain, diarrhea, nausea or vomiting Genitourinary Genitourinary ED: Denies dysuria, hematuria or urinary frequency Musculoskeletal Musculoskeletal: Reports myalgias; Denies back pain, extremity pain or neck pain Integumentary Denies rash or wounds Neurologic Neurologic: Reports headache(s); Denies paresthesias or weakness EXAM Physical Exam Const Vital Signs: 04/27/23 10:29 04/27/23 10:33 04/27/23 10:33 Temperature 96.5 F L Temperature Source Temporal Pulse Rate 116 H 113 H Respiratory Rate 26 H 29 H Respiratory Pattern Normal Blood Pressure 119/78 Blood Pressure Mean 91 Pulse Ox 85 85 Oxygen Delivery Method Room Air Room Air Oxygen Flow Rate (L/min) 04/27/23 11:19 04/27/23 11:42 Temperature Temperature Source Pulse Rate 88 Respiratory Rate 22 H Respiratory Pattern Blood Pressure 132/73 H Blood Pressure Mean 92 Pulse Ox Oxygen Delivery Method Non-Rebreather Non-Rebreather Oxygen Flow Rate (L/min) 15 Positive well nourished and well developed Constitutional Narrative: Nasal cannula no respiratory distress. General Appearance ED: well developed and NAD HEENT Reports dry mucous membranes normocephalic and atraumatic Mouth ED: Yes dry mucous membranes Mouth: dry mucous membranes Eyes PERRL, EOMs intact bilaterally and conjunctivae normal General Eye ED: Yes normal appearance of both eyes Neck no lymphadenopathy, supple and no meningeal signs General: Negative for tenderness Chest Wall Chest: Negative for tenderness Resp normal respiratory effort and normal air movement Effort and Inspection: symmetric chest movement; Negative for respiratory distress Cardio regular rhythm and no murmurs Rate: tachycardic Peripheral Pulses: pulses 2+ throughout GI normal to inspection, nondistended, normoactive bowel sounds and non-tender Palpation: Negative for guarding or rebound tenderness present Back/Spine no CVA tenderness and no thoracic nor lumbar tenderness Extremity normal to inspection General Extremety ED: Negative for edema or tenderness General Extremity: Negative for edema Neuro oriented x3, CN's II-XII intact bilaterally and no sensory deficits noted Sensorium / Orientation: awake and alert Skin no rashes or lesions noted and no wounds Sepsis Attestation Sepsis Alert: Yes Sepsis Attestation: Agree w/Sepsis Date exam was performed: 04/27/23 Time exam was performed: 12:22 Possible Source of Sepsis: Pulmonary MDM MDM MDM Narrative Medical decision making narrative: Interventions / MDM: Differential diagnosis: Sepsis, pneumonia, ACS, viral syndrome, Diagnosis considered but do not suspect: Pulmonary embolism, however findings of pneumonia and ACS. My EKG interpretation: Sinus rate of 111, ST depressions V3 to V6 there is no elevations. New compared to February 2021. EKG #2 handed to me at 1257, sinus rhythm, subtle ST depressions V3 to V4 unchanged from earlier 1. Imaging independently reviewed and interpreted by myself: 2 view chest x-ray: Diffuse pulmonary congestion, however concerning right lower area pneumonia. External documents reviewed: N/A Test considered but not ordered:N/A ED course: Patient tachycardic and tachypneic. He was on nasal cannula for hypoxia. Sepsis labs were ordered. Complaining of headache and requested Tylenol which was ordered. EKG did have ST depressions, revealing generalized pain everywhere. Work-up was initiated. White count returned at 17, chest x-ray interpreted myself concerning right lower lobe pneumonia area with mild congestion. Later did return noting he was placed on a nonrebreather, 15 L he is 90 to 91%. ABGs ordered. Rocephin and Zithromax ordered for community-acquired pneumonia. Troponin returned at 1739. Ordered for aspirin heparin drip. 1145: Discussed with on-call cardiology Dr. Menjivar, discussed history, and NSTEMI with finding pneumonia and congestion. He states agrees with aspirin heparin and monitoring for treatment first before catheterization. 1220: Lactic acid returned at 2, procalcitonin negative. COVID and flu negative. Urine signs and cold currently on body she was not symptomatic. I spoke with hospitalist Dr. German, will place in the ICU for further management. 1245: ABG pH 7.38, PCO2 42, PO2 64, bicarb 25. Re-evaluation: stable Disposition discussed with patient/family/significant other: Patient Case discussed with consulting clinician: Cardiology, Dr. Menjivar, hospitalist Dr. German This note was generated with earthmine dictation software. It may contain incorrect words, spelling, and punctuation that were not noted in checking the note before signing. Lab Data Labs: Laboratory Results - last 24 hr 04/27/23 04/27/23 04/27/23 10:40 11:00 11:32 WBC 17.7 H RBC 4.62 Hgb 14.6 Hct 43.5 MCV 94.2 H MCH 31.6 MCHC 33.6 RDW Std Deviation 46.4 H RDW Coeff of Alejandra 13.5 Plt Count 284 MPV 10.6 Immature Gran % (Auto) 0.400 Neut % (Auto) 85.6 H Lymph % (Auto) 7.9 L [place] % (Auto) 5.7 Eos % (Auto) 0.1 Baso % (Auto) 0.3 Absolute Neuts (auto) 15.1 H Absolute Lymphs (auto) 1.40 Nucleated RBC % 0 PT 14.3 INR 1.1 APTT 26.9 D-Dimer Quant (PE/DVT) 0.35 Sodium 141 Potassium 3.4 L Chloride 109 H Carbon Dioxide 25.0 Anion Gap 7 BUN 16 Creatinine 1.04 Estim Creat Clear Calc 82.87 Est GFR (MDRD) Af Amer 95 Est GFR (MDRD) Non-Af 79 BUN/Creatinine Ratio 15.4 Glucose 175 H Lactic Acid 2.0 Calcium 8.6 Magnesium 1.8 Total Bilirubin 1.10 H AST 34 ALT 42 Alkaline Phosphatase 69 Troponin I High Sens 1737 H* B-Natriuretic Peptide 490.8 H Total Protein 6.9 Albumin 3.4 Globulin 3.5 Albumin/Globulin Ratio 1.0 Procalcitonin 0.08 Urine Color Yellow Urine Clarity Sl. Cloudy Urine pH 5.0 Ur Specific [place] 1.025 Urine Protein 30 H Urine Glucose (UA) Normal Urine Ketones 5 H Urine Occult Blood 10 H Urine Nitrite Negative Urine Bilirubin 1 H Urine Urobilinogen 1 H Ur Leukocyte Esterase 500 H Urine RBC 0 SEEN Urine WBC 10-25 SEEN Ur Squamous Epith Cells 0-5 SEEN Urine Bacteria 1+ Urine Mucus 0 SEEN ABG Data ABG results: ABG 04/27/23 12:40 Specimen Type ART Sample Site R Radial pH 7.38 Bicarbonate Actual 25.4 Total CO2 27 Base Excess 0 O2 Saturation 92 L ABG pCO2 42.6 ABG pO2 65 L Garrett Test Positive O2 Delivery Device NRB Liter Flow 15.0 Radiography Diagnostic Testing: Clinical Impression(s) from Imaging Studies Chest X-Ray 04/27/23 11:20 IMPRESSION: Consolidations and air space disease, and small right effusion as described. Underlying infectious process is a possibility however other entities are hard to exclude. Mild pulmonary vascular congestion. Electronically Signed: Jaime Dyer, at 11:48 EDT , Critical Care Time Critical Care Time: Yes Critical care time (excluding procedures): 30-74 minutes, Discussing w/Patient &/or Family/Diesel Dragline Operator, Discussing w/Consultants, Arranging Admission or Transfer and - (40 minutes) Discharge Plan Dx/Rx/DC Orders Clinical Impression: Sepsis, Tobacco use, Pneumonia, Non-STEMI (non-ST elevated myocardial infarction), Chest pain, Hypoxia Disposition Disposition: Acute Care Hospital [facility] Discharge Date/Time: 04/27/23 12:58
[2023-04-27] MEDS: Acetaminophen 500 MG Tablet 1000 MG PO (11:16)
[2023-04-27] MEDS: 0.9% Normal Saline 1,000 ML 999 ML IV (11:17)
--- NOTE | 2023-04-27 11:20 | RAD_ITS ---
INDICATION: cough EXAMINATION/TECHNIQUE: X-RAY - XR Chest 2 Views COMPARISON: FINDINGS: LINES/DEVICES: None. LUNGS: Focal consolidations are noted at the lung bases and patchy airspace disease is noted at the upper lungs as well. There is mild pulmonary vascular congestion. Likely small right effusion. MEDIASTINUM AND CARDIOVASCULAR STRUCTURES: Cardiac silhouette not enlarged. Central airways and mediastinal contour are unremarkable. BONES AND SOFT TISSUES: Unremarkable. RAD/Chest PA and Lateral IMPRESSION: Consolidations and air space disease, and small right effusion as described. Underlying infectious process is a possibility however other entities are hard to exclude. Mild pulmonary vascular congestion. Electronically Signed: Jaime Dyer, at 11:48 EDT ,
[2023-04-27 11:26] LABS: Absolute Neutrophil Count 15.1 X10^3/uL (2.0-7.7); Basophil# 0.06 X10^3/uL; Basophil% 0.3 % (0-1); Eosinophil# 0.02 X10^3/uL; Eosinophils% 0.1 % (0-5); Hematocrit 43.5 % (40-54); Hemoglobin 14.6 g/dL (13.0-16.5); Lymphocyte % 7.9 % (19-41); Mean Corp Hgb Conc 33.6 g/dL (32-36); Mean Corpuscular Hgb 31.6 pg (27.0-32.0); Mean Corpuscular Volume 94.2 fL (80-94); Mean Platelet Vol. 10.6 fl (6.2-12.0); Monocyte# 1.01 X10^3/uL; Monocyte% 5.7 % (0-10); NRBC Flagged by Analyzer 0 % (0-5); Neutrophil % 85.6 % (47-70); Platelet Count 284 K/mm3 (150-450); RBC Distribution Width CV 13.5 % (11.6-14.6); RBC Distribution Width SD 46.4 fl (35.1-43.9); Red Blood Count 4.62 M/mm3 (4.6-6.2); White Blood Count 17.7 K/mm3 (4.4-11.0)
--- NOTE | 2023-04-27 11:41 | ED.RN ---
Patient resting with non rebreather, respirations easy and unlabored. Awaiting results.
[2023-04-27 11:44] LABS: Mucous, Urine 0 SEEN /hpf (<or=2+); Red Blood Cells-Urine 0 SEEN /hpf (0-5)
[2023-04-27 11:45] LABS: AST(SGOT) 34 U/L (15-37); Alanine Aminotransfer ALT/SGPT 42 U/L (16-61); Albumin, Serum 3.4 g/dL (3.2-5.0); Alkaline Phosphatase 69 U/L (45-117); Anion Gap 7 (5-15); BUN 16 mg/dL (7-18); BUN/Creat Ratio 15.4 RATIO (10-20); Calcium,Total 8.6 mg/dL (8.5-10.1); Chloride 109 mmol/L (98-107); Creatinine, Serum 1.04 mg/dL (0.70-1.30); EST Glomerular Filtration Rate 79 mL/min (>60); Est Glom Filt Rate - Afr Amer 95 mL/min (>60); Estimated Creatinine Clearance 82.87 ml/min; Globulin 3.5 g/dL (2.2-4.2); Glucose 175 mg/dL (74-106); Potassium 3.4 mmol/L (3.5-5.1); Protein, Total 6.9 g/dL (6.4-8.2); Sodium Level 141 mmol/L (136-145); Troponin-I HS (w/2H Reflex) 1737 pg/mL (3.0-78.0)
[2023-04-27 11:47] LABS: Color, Urine Yellow (Yellow); Glucose, Dipstick Normal (Normal); Ketone-Dipstick 5 mg/dl (Negative); Leukocyte Esterase-Dipstick 500 /ul (Negative); Nitrite-Dipstick Negative (Negative); Occult Blood-Urine 10 /ul (Negative); Protein-Dipstick 30 mg/dl (Negative); Specific Gravity, Urine 1.025 (1.002-1.030); Urine Clarity Sl. Cloudy (Clear); Urine Urobilinogen 1 mg/dl (Normal)
[2023-04-27 11:51] LABS: International Normalized Ratio 1.1; Prothrombin Time (Protime)PT. 14.3 SECONDS (11.7-14.9)
[2023-04-27 11:52] LABS: Partial Thromboplast Time 26.9 Seconds (24.1-36.2)
[2023-04-27 11:53] LABS: Urine Bilirubin Dipstick 1 mg/dL (Negative)
[2023-04-27 12:06] LABS: Squamous Epithelial Cells - UA 0-5 SEEN /hpf (0-5)
[2023-04-27 12:07] LABS: Bacteria 1+ /hpf (None Seen); White Blood Cells 10-25 SEEN /hpf (0-5)
[2023-04-27 12:08] LABS: Procalcitonin 0.08 ng/mL (0.00-0.09)
[2023-04-27] MEDS: Aspirin 81 MG TAB.CHEW 324 MG PO (12:15)
[2023-04-27] MEDS: Heparin Injection (Vial) 5,000 UNIT/ML VIAL 4000 UNIT IV (12:16)
[2023-04-27] MEDS: HEPARIN/D5w 25,000 UNITS 25,000 UNITS/250 ML IV.SOLN. 10 UNITS CONT INF (12:23)
--- NOTE | 2023-04-27 12:25 | PCM.HP.STD ---
HPI - General General Date of Admission: 04/27/23 Date of Service: 04/27/23 Chief Complaint: Cough, dyspnea, chest heaviness, fatigue, malaise. HPI Narrative The patient is a 53 y/o M w/ PMHx: Morbid Obesity, HLD, Anxiety and Depression, Hx VTE, Tobacco use, GERD, Hx Nephrolithiasis who presents to the [facility] ED on 04/27/23 with history of significant fatigue, malaise as well as onset of productive sputum with myalgias and decreased oral intake over the last week with concurrent mild headache as well as vague chest pressure prompting eventual ED evaluation. He notes the chest discomfort is primarily pressure-like in sensation in the anterior chest without marked radiation with associated dyspnea and diaphoresis with no nausea or emesis currently rating his general discomfort 8-9 out of 10 in severity but is also encompassing his other symptoms and has difficulty delineating only about the chest pain. He denies any specific prior chest pain prior to his current recent illness. Work-up in the ED included T96.5, heart rate 116, BP 119/78, respiratory rate 26, initially 85% on room air now reportedly on a 15 L nonrebreather with respiratory rate 22, BP most recently 132/73, heart rate 88, CBC with WC 17.7, hemoglobin 14.6, platelet 284 with left shift, unremarkable coags, CMP with potassium 3.4, chloride 109, glucose 175, lactic acid 2.0, T. bili 1.10 otherwise hepatic profile not marked appearing, procalcitonin 0.08, BNP pending upon requested evaluation of patient, troponin 1737, urinalysis with specific gravity elevation 1.025, protein 30, ketone 5, occult blood 10, negative nitrite, leukocyte Estrace however 500 with urine WBCs 10-25 with 1+ urine bacteria, urine culture pending per ED, blood culture x2 pending per ED, rapid SARS COVID and influenza antigen negative, chest x-ray with consolidations and airspace disease at bilateral lung bases as well as a small right effusion with mild pulmonary vascular congestion, EKG with ST with new ST depressions V3-V6, ABG pending upon requested evaluation of patient. In the ED patient initiated on a heparin drip and administered full-strength aspirin therapy as well as Tylenol 1000 mg p.o. x1 and 1 L normal saline bolus in addition to IV Rocephin and IV azithromycin. ED discussed case with Dr. Menjivar Cardiology with recommendation for treatment of underlying acute illnesses and likely future catheterization once stabilized. Updated educational assistant, Dr. New about patient information and plan of care as well as status upon admission. [facility] Medical History DVT (deep venous thrombosis) GERD (gastroesophageal reflux disease) HLD (hyperlipidemia) Kidney stones Morbid obesity Tobacco use Home Medications naproxen sodium 220 mg tablet (Aleve) 440 mg PO DAILY 02/03/23 [History Last Taken 04/26/23] Allergy/AdvReac Type Severity Reaction Status Date / Time No Known Allergies Allergy Verified 02/03/23 09:22 Family History (Updated 04/27/23 @ 12:[address] Shanda German MD) Father Diabetes Heart disease Hypertension Mother Carbon monoxide poisoning Patient notes that his mother when he was less than 1 year old secondary to carbon monoxide poisoning. No significant medical history including heart disease, diabetes or cancer. Surgical History (Updated 04/27/23 @ 12:[address] Shanda German MD) History of incision and drainage History of surgery on extremity History of tonsillectomy and adenoidectomy Social History (Updated 04/27/23 @ 12:[address] Shanda German MD) household members: family Smoking Status: Current every day smoker tobacco type: cigarettes Smoking packs per day: 0.5 Smoking cigarettes per day: 10.0 alcohol intake: current alcohol intake frequency: holidays/special occasions only substance use type: does not use ROS ROS Narrative Admission Review of Systems: CONSTITUTIONAL: No weight loss, fever, + chills, weakness or fatigue. HEENT: Eyes: No visual loss, blurred vision, double vision or yellow sclerae. Ears, Nose, Throat: No hearing loss, sneezing, congestion, runny nose or sore throat. SKIN: No rash or itching, lesions, wounds. CARDIOVASCULAR: + Chest pain. Nopalpitations, edema, orthopnea, syncopal events. RESPIRATORY: + shortness of breath, cough with productive sputum. No wheezing, hemoptysis. GASTROINTESTINAL: + anorexia. No nausea, vomiting or diarrhea, abdominal pain, melena, BRBPR. GENITOURINARY: No dysuria, frequency, urgency or retention. NEUROLOGICAL: + headach. No dizziness, syncope, paralysis, ataxia, numbness or tingling in the extremities, focal weakness, change in bowel or bladder control, seizure. MUSCULOSKELETAL: No muscle, back pain, joint pain or stiffness. HEMATOLOGIC: No anemia, bleeding or bruising. LYMPHATICS: No enlarged nodes. No history of splenectomy. PSYCHIATRIC: + history of depression or anxiety. ENDOCRINOLOGIC: + reports of sweating, cold or heat intolerance. No polyuria or polydipsia. ALLERGIES: No history of asthma, hives, eczema or rhinitis. Vital Signs Vital Signs Vital Signs: 04/27/23 10:29 04/27/23 10:33 04/27/23 10:33 Temperature 96.5 F L Temperature Source Temporal Pulse Rate 116 H 113 H Respiratory Rate 26 H 29 H Respiratory Pattern Normal Blood Pressure 119/78 Blood Pressure Mean 91 Pulse Ox 85 85 Oxygen Delivery Method Room Air Room Air Oxygen Flow Rate (L/min) 04/27/23 11:19 04/27/23 11:42 Temperature Temperature Source Pulse Rate 88 Respiratory Rate 22 H Respiratory Pattern Blood Pressure 132/73 H Blood Pressure Mean 92 Pulse Ox Oxygen Delivery Method Non-Rebreather Non-Rebreather Oxygen Flow Rate (L/min) 15 Weight Weight: 276 lb 3.827 oz Body Mass Index (BMI) 39.6 Physical Exam Narrative Physical Examination: General: Awake, alert, oriented x 3 and cooperative, seated upright at the ED bedside, nonrebreather in place, increased work of breathing with accessory muscle usage evident, ABG in the process of being obtained. Skin: Normal color, normal turgor, no icterus, no cyanosis. HEENT: AT/NC, EOMI, PERRLA, moderately dry MM, nonrebreather in place, very difficult to discern both carotid bruits or JVD noted given positioning and thickened neck as well as referred sounds from nonrebreather. Lungs: Significantly diminished, greater bases, mildly coarse, coughing with deep inspiratory effort, evidence of increased work of breathing accessory muscle usage on a nonrebreather as noted, no current rales or wheezing Heart: Tachycardic with regular rhythm; no gallop, rub audible. Abdomen: Soft, morbidly obese, NTTP, difficult to assess distention and HSM given habitus, distant hypoactive BS, no HSM. Extremities: No cyanosis, clubbing, or edema. Neurological: Patient awake, alert, oriented as noted, cognitive function intact; pupils equally reactive to light and accommodation, cranial nerves grossly normal, moving all 4 extremities, no focal deficits, strength severely globally decreased secondary to acute presentation Psychiatric: Affect appears fatigued, ill-appearing, evidence of respiratory distress, no acute evidence of depressive or anxiety feelings. Results Lab / Micro Data 04/27/23 10:40 04/27/23 10:40 Labs: Laboratory Results - last 24 hr 04/27/23 10:40: WBC 17.7 H, RBC 4.62, Hgb 14.6, Hct 43.5, MCV 94.2 H, MCH 31.6, MCHC 33.6, RDW Std Deviation 46.4 H, RDW Coeff of Alejandra 13.5, Plt Count 284, MPV 10.6, Immature Gran % (Auto) 0.400, Neut % (Auto) 85.6 H, Lymph % (Auto) 7.9 L, [place] % (Auto) 5.7, Eos % (Auto) 0.1, Baso % (Auto) 0.3, Absolute Neuts (auto) 15.1 H, Absolute Lymphs (auto) 1.40, Nucleated RBC % 0, PT 14.3, INR 1.1, APTT 26.9, Sodium 141, Potassium 3.4 L, Chloride 109 H, Carbon Dioxide 25.0, Anion Gap 7, BUN 16, Creatinine 1.04, Estim Creat Clear Calc 82.87, Est GFR (MDRD) Af Amer 95, Est GFR (MDRD) Non-Af 79, BUN/Creatinine Ratio 15.4, Glucose 175 H, Calcium 8.6, Total Bilirubin 1.10 H, AST 34, ALT 42, Alkaline Phosphatase 69, Troponin I High Sens 1737 H*, Total Protein 6.9, Albumin 3.4, Globulin 3.5, Albumin/Globulin Ratio 1.0 04/27/23 11:00: Lactic Acid 2.0 04/27/23 11:32: Procalcitonin 0.08, Urine Color Yellow, Urine Clarity Sl. Cloudy, Urine pH 5.0, Ur Specific [place] 1.025, Urine Protein 30 H, Urine Glucose (UA) Normal, Urine Ketones 5 H, Urine Occult Blood 10 H, Urine Nitrite Negative, Urine Bilirubin 1 H, Urine Urobilinogen 1 H, Ur Leukocyte Esterase 500 H, Urine RBC 0 SEEN, Urine WBC 10-25 SEEN, Ur Squamous Epith Cells 0-5 SEEN, Urine Bacteria 1+, Urine Mucus 0 SEEN Micro: Microbiology 04/27/23 10:50 Nasal Secretion SARS-CoV-2 & FLU Antigen (Rapid) - Final Radiology Impression Chest X-Ray 04/27/23 11:20 IMPRESSION: Consolidations and air space disease, and small right effusion as described. Underlying infectious process is a possibility however other entities are hard to exclude. Mild pulmonary vascular congestion. Electronically Signed: Jaime Dyer, at 11:48 EDT , Assessment & Plan Assessment/Plan (1) Pneumonia: PLAN: Plan The patient is a 53 y/o M w/ PMHx: Morbid Obesity, HLD, Anxiety and Depression, Hx VTE, Tobacco use, GERD, Hx Nephrolithiasis who presents to the [facility] ED on 04/27/23 with history of significant fatigue, malaise as well as onset of productive sputum with myalgias and decreased oral intake over the last week with concurrent mild headache as well as vague chest pressure prompting eventual ED evaluation. #1. Acute Sepsis (2+ SIRS, source and Respiratory Failure) secondary to Acute Hypoxic Respiratory Failure secondary to Bilateral Pneumonia and concurrent #3: Will admit to ICU, ICU physician consultation requested per protocol, ABG pending upon requested evaluation, maintain on oxygen with wean as tolerated to room air although certainly could worsen and request BIPAP, continue ATC duonebs, PRN albuterol, maintained on IV Rocephin and Azithromycin but low threshold to broaden if needed, MRSA screen requested, HOB, IS parameters w/ pending sputum cultures, full respiratory viral panel, COVID PCR and urine antigens. Bld cx x 2 obtained in the ED. #2. Acute NSTEMI, suspect potentially in large part Demand related given #1: ED troponin 1737, chest x-ray with consolidations and airspace disease at bilateral lung bases as well as a small right effusion with mild pulmonary vascular congestion, EKG with ST with new ST depressions V3-V6. Will maintain on a monitored bed, continue serial cardiac enzymes and EKGs. Obtain magnesium level upon admission. Continue heparin drip initiated in the ED. Continue medical management w/ asa, add statin w/ AM FLP, hold on aggressive BB addition given acute illness presentation and concern for onset hypotension. ECHO requested. Cardiology consulted. ASA, NG, Morphine as BP allows. #3. Acute Complicated Urinary Tract Infection: UA upon ED evaluation remarkable, pending UCx, continue IVFs, monitor I/Os, continue IV Rocephin w/ transition as able pending sensitivities and speciation. Bld cx x 2 obtained in the ED. Suspect given #1 may be bacteremic. Does have a history of nephrolithiasis previously, no current OLI noted, low threshold if necessary to obtain a CT with stone protocol given severity of presentation illness. #4. Hypokalemia: Admission K+ 3.4, magnesium level requested, supplementation given, repeat level in AM. #5. Hyperglycemia: Admission glucose 175, no diabetic history, potentially stress response, hemoglobin A1c requested. #6. History of VTE: Patient with history of VTE prior although in the setting of COVID, given morbid obesity and recent decreased activity in the setting of infection certainly is a risk, although certainly could be falsely elevated to be initially cautious we will obtain a D-dimer and pursue CTPA if appropriate. #7. Anxiety and depression: Not on any current regimen, encourage continued outpatient follow-up and assessment. #8. GERD: Not on any chronic regimen, will have as needed Mylanta and may add oral regimen chronically if necessary. #9. Tobacco Abuse: Encouraged cessation, inpatient consultation per RT, NR if desired. #10. Morbid Obesity: Weight loss and lifestyle changes encouraged. #11. DVT prophylaxis: We will continue therapeutic heparin drip initiated in the ED. #12. CODE status: Patient is not have healthcare power insurance defense attorney or living will in place. He is unable to give someone he would want to make decisions for him at this time. Discussed CODE status at length including difference between FULL code, DNR-CCA and DNR-CC status. Following discussions about the differences in these status, requested Full Code status. Advanced Care Planning Face to Face Time: 16 minutes. Charges/Coding Visit Charges Inpatient E&M: 91950 Init Hosp L3 Procedures Hospitalists Procedures: 80249 Advncd Care Plan 30 Min
--- NOTE | 2023-04-27 12:31 | EKG12_ITS ---
Test Reason : SOB Blood Pressure : / mmHG Vent. Rate : 104 BPM Atrial Rate : 104 BPM P-R Int : 140 ms QRS Dur : 092 ms QT Int : 340 ms P-R-T Axes : 037 071 083 degrees QTc Int : 447 ms Sinus tachycardia with Premature atrial complexes ST & T wave abnormality, consider lateral ischemia Abnormal ECG Confirmed by ALVA ELAINE, KURT ([id number]), tape editor APPLE JAMES ([id number]) on 04/29/2023 9:24:03 AM Referred By: Confirmed By:KURT CALLE MD
[2023-04-27 12:34] LABS: BNP,B-Type NATRIURETIC PEPTIDE 490.8 pg/mL (0-100)
[2023-04-27 12:44] LABS: Allen Test Positive; Base Excess 0 mmol/L (-2 to +2); Bicarbonate 25.4 mmol/L (22-26); Blood Gas Specimen Type ART; O2 Delivery Device NRB; PO2 65 mmHG (75-100); SITE R Radial; SO2 92 % (95-99); Total Carbon Dioxide 27 mmol/L; pCO2 42.6 mmHg (35-45); pH 7.38 (7.35-7.45)
[2023-04-27 12:50] LABS: D-Dimer Quantitative (DVT/PE) 0.35 FEU/ug/m (0.27-0.49)
--- NOTE | 2023-04-27 12:53 | ED.RN ---
Report to [facility] on ICU
[2023-04-27 12:54] LABS: Magnesium 1.8 mg/dL (1.6-2.6)
--- NOTE | 2023-04-27 13:18 | ECHOCS_ITS ---
Reason For Study: NSTEMI Procedure This was a 2D Doppler, Color Flow transthoracic echocardiogram. The study was technically difficult. Contrast injection was performed. Exam performed portable in ICU/CCU. Left Ventricle Normal LV size. Left ventricular systolic function is normal. The estimated ejection fraction is 55 %. Stage 2 diastolic dysfunction. Right Ventricle Normal RV size. Normal systolic function. Pericardium/Pleural No pericardial effusion. Medication Diluted definity 3ml given slow IV push to enhance endocardial definition. MMode/2D Measurements & Calculations LAV(MOD-bp): 31.9 ml LA A4 area: 12.0 cm2 LA dimension(2D): 4.9 cm LAV(MOD-bp) Indexed: 13.3 ml/m2 LAV(MOD-sp2): 28.4 ml LAV(MOD-sp4): 32.1 ml RA A4 area: 14.4 cm2 Doppler Measurements & Calculations MV E max franklin: 140.7 cm/sec Lat Peak E' [place]: 10.9 cm/sec Med Peak E' [place]: 13.5 cm/sec MV A max franklin: 75.3 cm/sec E/E' lat: 12.9 E/E' med: 10.4 MV E/A: 1.9 MV V2 max: 131.6 cm/sec Ao V2 max: 124.7 cm/sec LV V1 max: 103.3 cm/sec MV max P.9 mmHg Ao max P.2 mmHg LV V1 max P.3 mmHg MV V2 mean: 85.4 cm/sec Ao V2 mean: 82.4 cm/sec LV V1 mean P.5 mmHg MV mean P.2 mmHg Ao mean P.2 mmHg LV V1 mean: 73.2 cm/sec MV V2 VTI: 30.4 cm Ao V2 VTI: 17.8 cm LV V1 VTI: 18.2 cm AV (velocity ratio): 1.0 ECHO/Echo Complete W/ Contrast Interpretation Summary Normal LV size. Left ventricular systolic function is normal. The estimated ejection fraction is 55 %. Stage 2 diastolic dysfunction. Contrast injection was performed. Ordering Physician: Shanda German Referring Physician: DEBORAH ANDERSEN Performed By: Luceor Anaya RCS
[2023-04-27 13:20] LABS: Reflex Troponin-HS? (from REC) Y
[2023-04-27] MEDS: Potassium Chloride Oral Tablet 20 MEQ 40 MEQ PO (14:03)
[2023-04-27] MEDS: 0.9% Normal Saline 1,000 ML 100 ML IV (14:04)
[2023-04-27 14:11] LABS: Troponin-I HS 1995 pg/mL (3.0-78.0)
[2023-04-27] MEDS: Ipratropium/Albuterol Sulfate 3 ML AMPUL.NEB INHALATION ×2 (15:22→19:25)
[2023-04-27 15:27] LABS: Reflex Lactate? Y
[2023-04-27] MEDS: guaiFENesin 10 ML UDC (200MG/10ML) PO (15:40)
[2023-04-27] MEDS: Acetaminophen 325 MG Tablet 650 MG PO (15:40)
[2023-04-27 15:57] LABS: M R Staph aureus DNA By PCR Negative (Negative); Probe Check PASS; Specimen Processing Control PASS
[2023-04-27 16:33] LABS: Lactic Acid 2.4 mmol/L (0.4-1.9)
--- NOTE | 2023-04-27 17:06 | PCM.CONS.C ---
Assessment & Plan Assessment/Plan (1) Non-STEMI (non-ST elevated myocardial infarction): PLAN: Above is likely secondary to demand ischemia. My recommendation at this time would be to continue observation and treatment of the underlying cause. Depending on his clinical course further recommendations will be made. He will continue on the current medical therapy with no changes. Thank you for allowing me to participate in the care of your patient. Please don't hesitate to call if any issues arise. HPI Consult Data Date of Consult: 04/27/23 HPI Narrative HPI Narrative: MAXIME ZAMUDIO, is a 53 M who presents to the emergency room with decreased oral intake not feeling well vague chest discomfort described as a pressure-like sensation in the anterior part of his chest associated with dyspnea diaphoresis but not associated with any nausea or vomiting. He does not have any previous cardiac history and has not seen a physician in a long time. In the emergency room he was evaluated he was noted to have an elevated white count with a left shift low potassium chest x-ray demonstrating evidence of airspace disease and EKG with diffuse ST depression and cardiac enzymes which were noted to be abnormal. PFSH Medical History DVT (deep venous thrombosis) GERD (gastroesophageal reflux disease) HLD (hyperlipidemia) Kidney stones Morbid obesity Tobacco use Home Medications naproxen sodium 220 mg tablet (Aleve) 440 mg PO DAILY 02/03/23 [History Last Taken 04/26/23] Allergy/AdvReac Type Severity Reaction Status Date / Time No Known Allergies Allergy Verified 02/03/23 09:22 Family History Father Diabetes Heart disease Hypertension Mother Carbon monoxide poisoning Patient notes that his mother when he was less than 1 year old secondary to carbon monoxide poisoning. No significant medical history including heart disease, diabetes or cancer. Surgical History History of incision and drainage History of surgery on extremity History of tonsillectomy and adenoidectomy Social History household members: family Smoking Status: Current every day smoker tobacco type: cigarettes Smoking packs per day: 0.5 Smoking cigarettes per day: 10.0 alcohol intake: current alcohol intake frequency: holidays/special occasions only substance use type: does not use ROS Constitutional Constitutional: Denies fever(s) or weight loss Eyes Eyes: Reports systems reviewed and no addt'l complaints, except as documented ENT HEENT: Reports systems reviewed and no addt'l complaints, except as documented Cardiovascular Cardiovascular: Denies chest pain at rest, chest pain with activity, dyspnea at rest, dyspnea on exertion, edema, palpitations or paroxysmal nocturnal dyspnea Respiratory/Chest Respiratory/Chest: Denies dyspnea on exertion, productive cough, shortness of breath at rest or shortness of breath with exertion Gastrointestinal Gastrointestinal: Denies change in bowel habits, nausea, vomiting or weight changes Genitourinary Genitourinary: Denies difficulty urinating Musculoskeletal Musculoskeletal: Denies joint stiffness or muscle weakness Integumentary Integumentary: Denies lesions Neurologic Neurologic: Denies dizziness or syncope Psychiatric Psychiatric: Denies anxiety Endocrine Endocrinology: Denies excessive sweating or fatigue Hematologic/Lymphatic Hematologic/Lymphatic: Denies anemia Allergic/Immunologic Allergic/Immunologic: Denies seasonal rhinorrhea Risk Stratification Risk Stratification Applicable: Yes Age >/= 65: No >/= 3 CAD Risk Factors (HTN, HLD, DM, family hx of CAD, or current smoker): No Aspirin Use in the Past 7 Days: No Severe Angina (>/= episodes in 24 hours): No EKG ST Changes >/= 0.5mm: No Positive Cardiac Marker: Yes MARÍA Risk Stratification Score: 1 MARÍA % Risk: 5% Risk Objective Data Vital Signs: Vital Signs Temp Pulse Resp BP Pulse Ox O2 Del Method O2 Flow Rate 98.5 F 110 H 34 H 113/81 H 96 Airvo 60 04/27/23 16:00 04/27/23 16:36 04/27/23 16:36 04/27/23 16:00 04/27/23 16:36 04/27/23 16:00 04/27/23 15:24 FiO2 70 04/27/23 16:36 Oxygen Flow Rate (L/min) 60 Oxygen Delivery Method Airvo Weight: 288 lb 9.361 oz Body Mass Index (BMI) 40.8 Intake & Output: Intake and Output for Last 24 Hours 04/25/23 04/26/23 04/27/23 23:59 23:59 23:59 Intake Total 1805 / 1805 Output Total 100 / 100 Balance 1705 / 1705 Lab / Micro Data 04/27/23 10:40 04/27/23 10:40 Labs: Laboratory Results - last 24 hr 04/27/23 10:40: WBC 17.7 H, RBC 4.62, Hgb 14.6, Hct 43.5, MCV 94.2 H, MCH 31.6, MCHC 33.6, RDW Std Deviation 46.4 H, RDW Coeff of Alejandra 13.5, Plt Count 284, MPV 10.6, Immature Gran % (Auto) 0.400, Neut % (Auto) 85.6 H, Lymph % (Auto) 7.9 L, [place] % (Auto) 5.7, Eos % (Auto) 0.1, Baso % (Auto) 0.3, Absolute Neuts (auto) 15.1 H, Absolute Lymphs (auto) 1.40, Nucleated RBC % 0, PT 14.3, INR 1.1, APTT 26.9, D-Dimer Quant (PE/DVT) 0.35, Sodium 141, Potassium 3.4 L, Chloride 109 H, Carbon Dioxide 25.0, Anion Gap 7, BUN 16, Creatinine 1.04, Estim Creat Clear Calc 82.87, Est GFR (MDRD) Af Amer 95, Est GFR (MDRD) Non-Af 79, BUN/Creatinine Ratio 15.4, Glucose 175 H, Calcium 8.6, Magnesium 1.8, Total Bilirubin 1.10 H, AST 34, ALT 42, Alkaline Phosphatase 69, Troponin I High Sens 1737 H*, B-Natriuretic Peptide 490.8 H, Total Protein 6.9, Albumin 3.4, Globulin 3.5, Albumin/Globulin Ratio 1.0 04/27/23 11:00: Lactic Acid 2.0 04/27/23 11:32: Procalcitonin 0.08, Urine Color Yellow, Urine Clarity Sl. Cloudy, Urine pH 5.0, Ur Specific [place] 1.025, Urine Protein 30 H, Urine Glucose (UA) Normal, Urine Ketones 5 H, Urine Occult Blood 10 H, Urine Nitrite Negative, Urine Bilirubin 1 H, Urine Urobilinogen 1 H, Ur Leukocyte Esterase 500 H, Urine RBC 0 SEEN, Urine WBC 10-25 SEEN, Ur Squamous Epith Cells 0-5 SEEN, Urine Bacteria 1+, Urine Mucus 0 SEEN 04/27/23 13:20: MRSA (PCR) Negative 04/27/23 13:38: Troponin I High Sens 1995 H* 04/27/23 15:47: Lactic Acid 2.4 H* Micro: Microbiology 04/27/23 11:32 Urine, Clean Catch Legionella Antigen - Final 04/27/23 11:32 Urine, Clean Catch Streptococcus pneumoniae Antigen (M - Final 04/27/23 10:50 Nasal Secretion SARS-CoV-2 & FLU Antigen (Rapid) - Final ABG Data ABG results: ABG 04/27/23 12:40 Specimen Type ART Sample Site R Radial pH 7.38 Bicarbonate Actual 25.4 Total CO2 27 Base Excess 0 O2 Saturation 92 L ABG pCO2 42.6 ABG pO2 65 L Garrett Test Positive O2 Delivery Device NRB Liter Flow 15.0 Cardiology Labs/Tests 04/27/23 10:40: WBC 17.7 H, RBC 4.62, Hgb 14.6, Hct 43.5, MCV 94.2 H, MCH 31.6, MCHC 33.6, Plt Count 284, MPV 10.6, Immature Gran % (Auto) 0.400, Neut % (Auto) 85.6 H, Lymph % (Auto) 7.9 L, [place] % (Auto) 5.7, Eos % (Auto) 0.1, Baso % (Auto) 0.3, Absolute Neuts (auto) 15.1 H, Nucleated RBC % 0, PT 14.3, INR 1.1, APTT 26.9, D-Dimer Quant (PE/DVT) 0.35, Sodium 141, Potassium 3.4 L, Chloride 109 H, Carbon Dioxide 25.0, Anion Gap 7, BUN 16, Creatinine 1.04, Est GFR (MDRD) Af Amer 95, Est GFR (MDRD) Non-Af 79, BUN/Creatinine Ratio 15.4, Glucose 175 H, Calcium 8.6, Magnesium 1.8, Total Bilirubin 1.10 H, B-Natriuretic Peptide 490.8 H 04/27/23 11:00: Lactic Acid 2.0 04/27/23 11:32: Urine Color Yellow, Urine Clarity Sl. Cloudy, Urine pH 5.0, Ur Specific [place] 1.025, Urine Protein 30 H, Urine Glucose (UA) Normal, Urine Ketones 5 H, Urine Occult Blood 10 H, Urine Nitrite Negative, Urine Bilirubin 1 H, Urine Urobilinogen 1 H, Ur Leukocyte Esterase 500 H, Urine RBC 0 SEEN, Urine WBC 10-25 SEEN 04/27/23 12:40: pH 7.38, Bicarbonate Actual 25.4, Base Excess 0, O2 Saturation 92 L, ABG pCO2 42.6, ABG pO2 65 L, Garrett Test Positive 04/27/23 15:47: Lactic Acid 2.4 H* Rhythm: EKG: ECHO: Stress Test: Cardiac Cath: PCI: CT Surgery: Holter monitor: EPS: PPM: CXR: Chest CT Scan: Radiography Diagnostic Testing: Radiology Impression Chest X-Ray 04/27/23 11:20 IMPRESSION: Consolidations and air space disease, and small right effusion as described. Underlying infectious process is a possibility however other entities are hard to exclude. Mild pulmonary vascular congestion. Electronically Signed: Jaime Dyer, at 11:48 EDT , Echocardiogram 04/27/23 13:18 Interpretation Summary Normal LV size. Left ventricular systolic function is normal. The estimated ejection fraction is 55 %. Stage 2 diastolic dysfunction. Contrast injection was performed. Ordering Physician: Shanda German Referring Physician: DEBORAH ANDERSEN Performed By: Lucero Anaya RCS
[2023-04-27 18:39] LABS: Partial Thromboplast Time 37.3 Seconds (24.1-36.2)
[2023-04-27 18:50] LABS: Troponin-I HS 2277 pg/mL (3.0-78.0)
[2023-04-27] MEDS: 0.9% Saline Lock 10 ML Syringe IV ×3 (18:50→20:16)
[2023-04-27] MEDS: Heparin Injection (Vial) 5,000 UNIT/ML VIAL IV (18:53)
[2023-04-27] MEDS: LORazepam 2 MG/ML Syringe 0.5 MG IV (20:16)
[2023-04-27] MEDS: Atorvastatin Calcium 80 MG Tablet PO (20:16)
[2023-04-28] VITALS (65 sets, daily range): BP systolic 36–135; BP diastolic 12–118; PULSE 53–143; RESP 12–46; TEMP 36–40.2; O2SAT 54–100; BMI 41.3
[2023-04-28 01:30] LABS: Partial Thromboplast Time 78.5 Seconds (24.1-36.2)
[2023-04-28 01:50] LABS: Allen Test Positive; Base Excess -2 mmol/L (-2 to +2); Bicarbonate 23.7 mmol/L (22-26); Blood Gas Specimen Type ART; Comment 18/12; FI02 75; O2 Delivery Device BiPAP; PO2 59 mmHG (75-100); RR 12; SITE R Radial; SO2 89 % (95-99); Total Carbon Dioxide 25 mmol/L; pCO2 41.6 mmHg (35-45); pH 7.36 (7.35-7.45)
[2023-04-28] MEDS: Furosemide 40 MG/4 ML Vial IV (02:10)
[2023-04-28] MEDS: 0.9% Saline Lock 10 ML Syringe IV ×3 (02:10→17:56)
[2023-04-28] MEDS: Haloperidol Lactate 5 MG/ML Vial 2 MG IV (02:15)
[2023-04-28] MEDS: CHLORHEXIDINE GLUC 2% CLOTH 1 EACH TOWELETTE TOPICAL ×2 (02:15→09:39)
[2023-04-28] MEDS: Etomidate 20 MG/10 ML Vial IV ×2 (02:50→13:25)
[2023-04-28] MEDS: Succinylcholine Chloride 200 MG/10 ML SYRINGE 100 MG IV (02:50)
--- NOTE | 2023-04-28 02:52 | RAD_ITS ---
EXAM: XR CHEST, 1 VIEW CLINICAL INDICATION: intubation TECHNIQUE: Frontal view of the chest. COMPARISON: Two-view chest 04/27/2023 FINDINGS: LUNGS AND PLEURAL SPACES: Diffuse interstitial and alveolar opacities, with small pleural effusions. No pneumothorax. HEART: Unremarkable. Cardiac silhouette not enlarged. MEDIASTINUM: Central airways and mediastinal contour are unremarkable. BONES/JOINTS: Unremarkable. SOFT TISSUES: Unremarkable. TUBES, LINES AND DEVICES: Endotracheal tube with tip at the level of the clavicular heads, 7 cm above the nelly. Enteric tube extending below the level of the GE junction into the stomach. RAD/Chest 1 View (Portable) IMPRESSION: Diffuse interstitial and alveolar opacities, with small pleural effusions. Findings may indicate edema/infection/ARDS. Electronically Signed: Gerald Armendariz MD at 4:23 EDT ,
[2023-04-28] MEDS: Propofol 10MG/Ml 1,000 MG/100 ML Bottle 7.9 MG CONT INF (03:00)
[2023-04-28] MEDS: fentaNYL drip 100 ML 2.5 MCG CONT INF (03:00)
[2023-04-28 03:25] LABS: Absolute Lymphocyte Count 4.08 X10^3/uL (0.83-4.51); Absolute Neutrophil Count 20.6 X10^3/uL (2.0-7.7); Basophil# 0.11 X10^3/uL; Basophil% 0.4 % (0-1); Eosinophil# 0.02 X10^3/uL; Eosinophils% 0.1 % (0-5); Hematocrit 44.4 % (40-54); Hemoglobin 13.7 g/dL (13.0-16.5); Lymphocyte # 4.08 X10^3/ul (0.83-4.51); Lymphocyte % 15.4 % (19-41); Mean Corp Hgb Conc 30.9 g/dL (32-36); Mean Corpuscular Volume 100.5 fL (80-94); Mean Platelet Vol. 10.8 fl (6.2-12.0); Monocyte# 1.46 X10^3/uL; Monocyte% 5.5 % (0-10); NRBC Flagged by Analyzer 0.1 % (0-5); Neutrophil # 20.55 X10^3/uL (2.7-7.7); Neutrophil % 77.7 % (47-70); POSITIVE DIFFERENTIAL YES; Platelet Count 220 K/mm3 (150-450); RBC Distribution Width CV 13.5 % (11.6-14.6); RBC Distribution Width SD 50.4 fl (35.1-43.9); Red Blood Count 4.42 M/mm3 (4.6-6.2); White Blood Count 26.5 K/mm3 (4.4-11.0)
[2023-04-28 03:26] LABS: Differential Indicated SCAN CRITERIA MET
[2023-04-28 03:48] LABS: ALB/GLOB Ratio 0.8 RATIO (0.9-2.4); AST(SGOT) 61 U/L (15-37); Alanine Aminotransfer ALT/SGPT 65 U/L (16-61); Albumin, Serum 2.9 g/dL (3.2-5.0); Alkaline Phosphatase 71 U/L (45-117); Anion Gap 8 (5-15); BUN 21 mg/dL (7-18); Calcium,Total 7.9 mg/dL (8.5-10.1); Chloride 108 mmol/L (98-107); Cholesterol 128 mg/dL (200); Creatinine, Serum 1.61 mg/dL (0.70-1.30); EST Glomerular Filtration Rate 48 mL/min (>60); Est Glom Filt Rate - Afr Amer 58 mL/min (>60); Estimated Creatinine Clearance 53.53 ml/min; Globulin 3.6 g/dL (2.2-4.2); Glucose 199 mg/dL (74-106); High Density Lipoprotein 35 mg/dL; Potassium 4.8 mmol/L (3.5-5.1); Protein, Total 6.5 g/dL (6.4-8.2); Sodium Level 139 mmol/L (136-145); Triglycerides 221 mg/dL; Very Low Density Lipoprotein 44 mg/dL (5-40)
[2023-04-28 04:32] LABS: Base Excess -11 mmol/L (-2 to +2); Blood Gas Specimen Type ART; PO2 50 mmHG (75-100); SO2 67 % (95-99); Total Carbon Dioxide 21 mmol/L; pCO2 65.6 mmHg (35-45); pH 7.07 (7.35-7.45)
[2023-04-28 05:06] LABS: Base Excess -10 mmol/L (-2 to +2); Bicarbonate 19.7 mmol/L (22-26); Blood Gas Specimen Type ART; PO2 51 mmHG (75-100); SO2 71 % (95-99); Total Carbon Dioxide 22 mmol/L; pCO2 63.4 mmHg (35-45)
--- NOTE | 2023-04-28 06:00 | EKG12_ITS ---
Test Reason : EKG CHANGE Blood Pressure : / mmHG Vent. Rate : 116 BPM Atrial Rate : 116 BPM P-R Int : 158 ms QRS Dur : 142 ms QT Int : 348 ms P-R-T Axes : 062 112 057 degrees QTc Int : 483 ms Sinus tachycardia Right bundle branch block Left posterior fascicular block Bifascicular block ST elevation consider inferolateral injury or acute infarct ACUTE [place] / STEMI Abnormal ECG Confirmed by ALVA ELAINE, KURT ([id number]), tape editor APPLE JAMES ([id number]) on 04/29/2023 9:35:52 AM Referred By: NORRIS GUERRERO Confirmed By:KURT CALLE MD
--- NOTE | 2023-04-28 06:01 | PN.HOSP_ITS ---
Reason for Visit Reason for Visit: Diagnoses Non-ST elevation (NSTEMI) myocardial infarction (04/27/23) Pneumonia, unspecified organism (04/27/23) Subjective Subjective Critical care note Called by nurse to evaluate patient for respiratory distress at approximately 2 AM. I went in to assess the patient who is tachypneic with a rate of 40 respir ations per minute on BiPAP therapy and was restless. Patient was given Lasix due to suspected pulmonary edema due to fluids received for treatment of sepsis and a small dose of Haldol 2 mg was given to help with his restlessness. I continued to observe the patient for progression and decreased respiratory symptoms however the patient continued to be tachypneic and restless and made the decision to intubate the patient to protect his airway and reduce his respiratory fatigue. I used a glide a scope with 8.0 ET tube using etomidate and succinylcholine for rapid sequence intubation. Intubation was successful and end-tidal CO2 was confirmed as well as auscultation of both lungs, and patient was placed on ventilator. At approximately 3:10 AM patient was noticed to have a rhythm change and EKG was done which showed acute ST elevations in inferior lateral leads and STEMI emergency was called. 2 minutes later patient became pulseless and CODE BLUE was called. CPR was initiated immediately and patient received epinephrine x2 rounds along with adequate CPR and we were able to obtain ROSC. While waiting for STEMI team to be ready patient started to have bradycardia again therefore a dose of atropine 0.5 mg and an additional dose of 1 mg epinephrine was given prior to the arrival of Levophed drip which was being prepared in the pharmacy. Due to hypotension Levophed was started as soon as it became available. This point the patient was on propofol drip for sedation and due to hypotension we had stopped temporarily and he became restless and agitated and we restarted the propofol drip. 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 Subsequently it was determined due to hypotension that the patient would require an aortic balloon pump. This was placed. We continue to have difficulty maintaining adequate blood pressure and the patient had several runs of V. tach following this procedure that lasted approximately 12 beats for 4-5 episodes of this. Blood pressure continued to be low therefore propofol drip was stopped and additional pressor vasopressin was added. Patient was then transferred back to the intensive care unit for ongoing monitoring of care. Due to requiring of pressors patient will need a central line placed upon arrival of duplicate maker in the a.m. Patient was stabilizing at the time of my departure from the floor at approximately 6:00 AM therefore there was 4 hours of critical care time spent managing this patient through the early childhood lead teacher. Objective Data Objective Data Vital Signs: Vital Signs Temp Pulse Resp BP Pulse Ox O2 Del Method O2 Flow Rate 98.2 F 94 36 H 125/86 H 97 Mechanical Ventilator 60 04/28/23 00:00 04/28/23 01:50 04/28/23 01:50 04/28/23 01:00 04/28/23 01:50 04/28/23 04:00 04/28/23 00:00 FiO2 100 04/28/23 04:00 Oxygen Flow Rate (L/min) 60 Oxygen Delivery Method Mechanical Ventilator Weight: 288 lb 9.361 oz Body Mass Index (BMI) 40.8 Intake & Output: Intake and Output for Last 24 Hours 04/26/23 04/27/23 04/28/23 23:59 23:59 23:59 Intake Total 1898.71 / 1906.89 1160.95 / 1160.95 Output Total 200 / 200 Balance 1698.71 / 1706.89 1160.95 / 1160.95 Lab / Micro Data 04/28/23 03:15 04/28/23 03:15 Labs: Laboratory Results - last 24 hr 04/27/23 10:40: WBC 17.7 H, RBC 4.62, Hgb 14.6, Hct 43.5, MCV 94.2 H, MCH 31.6, MCHC 33.6, RDW Std Deviation 46.4 H, RDW Coeff of Alejandra 13.5, Plt Count 284, MPV 10.6, Immature Gran % (Auto) 0.400, Neut % (Auto) 85.6 H, Lymph % (Auto) 7.9 L, [place] % (Auto) 5.7, Eos % (Auto) 0.1, Baso % (Auto) 0.3, Absolute Neuts (auto) 15.1 H, Absolute Lymphs (auto) 1.40, Nucleated RBC % 0, PT 14.3, INR 1.1, APTT 26.9, D-Dimer Quant (PE/DVT) 0.35, Sodium 141, Potassium 3.4 L, Chloride 109 H, Carbon Dioxide 25.0, Anion Gap 7, BUN 16, Creatinine 1.04, Estim Creat Clear Calc 82.87, Est GFR (MDRD) Af Amer 95, Est GFR (MDRD) Non-Af 79, BUN/Creatinine Ratio 15.4, Glucose 175 H, Calcium 8.6, Magnesium 1.8, Total Bilirubin 1.10 H, AST 34, ALT 42, Alkaline Phosphatase 69, Troponin I High Sens 1737 H*, B- Natriuretic Peptide 490.8 H, Total Protein 6.9, Albumin 3.4, Globulin 3.5, Albumin/Globulin Ratio 1.0 04/27/23 11:00: Lactic Acid 2.0 04/27/23 11:32: Procalcitonin 0.08, Urine Color Yellow, Urine Clarity Sl. Cloudy, Urine pH 5.0, Ur Specific [place] 1.025, Urine Protein 30 H, Urine Glucose (UA) Normal, Urine Ketones 5 H, Urine Occult Blood 10 H, Urine Nitrite Negative, Urine Bilirubin 1 H, Urine Urobilinogen 1 H, Ur Leukocyte Esterase 500 H, Urine RBC 0 SEEN, Urine WBC 10-25 SEEN, Ur Squamous Epith Cells 0-5 SEEN, Urine Bacteria 1+, Urine Mucus 0 SEEN 04/27/23 13:20: MRSA (PCR) Negative 04/27/23 13:38: Troponin I High Sens 1994 H* 04/27/23 15:47: Lactic Acid 2.4 H* 04/27/23 18:03: APTT 37.3 H, Troponin I High Sens 2277 H* 04/28/23 00:50: APTT 78.5 H 04/28/23 03:15: WBC 26.5 H, RBC 4.42 L, Hgb 13.7, Hct 44.4, MCV 100.5 H D, MCH 31.0, MCHC 30.9 L D, RDW Std Deviation 50.4 H, RDW Coeff of Alejandra 13.5, Plt Count 220, MPV 10.8, Immature Gran % (Auto) 0.900, Neut % (Auto) 77.7 H, Lymph % (Auto) 15.4 L, [place] % (Auto) 5.5, Eos % (Auto) 0.1, Baso % (Auto) 0.4, Absolute Neuts (auto) 20.6 H, Absolute Lymphs (auto) 4.08, Nucleated RBC % 0.1, Sodium 139, Potassium 4.8, Chloride 108 H, Carbon Dioxide 23.0, Anion Gap 8, BUN 21 H, Creatinine 1.61 H, Estim Creat Clear Calc 53.53, Est GFR (MDRD) Af Amer 58 L, Est GFR (MDRD) Non-Af 48 L, BUN/Creatinine Ratio 13.0, Glucose 199 H, Calcium 7.9 L, Total Bilirubin 1.20 H, AST 61 H, ALT 65 H, Alkaline Phosphatase 71, Total Protein 6.5, Albumin 2.9 L, Globulin 3.6, Albumin/Globulin Ratio 0.8 L, Triglycerides 221 H, Cholesterol 128, LDL Cholesterol 49, VLDL Cholesterol 44 H, HDL Cholesterol 35 L Micro: Microbiology 04/27/23 13:45 Mucosa - Nasopharyngeal Coronavirus COVID-19 PCR - Final 04/27/23 13:45 Mucosa - Nasopharyngeal Respiratory Panel (PCR) - Final 04/27/23 11:32 Urine, Clean Catch Legionella Antigen - Final 04/27/23 11:32 Urine, Clean Catch Streptococcus pneumoniae Antigen (M - Final 04/27/23 10:50 Nasal Secretion SARS-CoV-2 & FLU Antigen (Rapid) - Final ABG Data ABG results: ABG 04/27/23 04/28/23 04/28/23 12:40 01:44 04:26 Specimen Type ART ART ART Sample Site R Radial R Radial pH 7.38 7.36 7.07 L* Bicarbonate Actual 25.4 23.7 19.0 L Total CO2 27 25 21 Base Excess 0 -2 -11 L O2 Saturation 92 L 89 L 67 L O2 % 75 ABG pCO2 42.6 41.6 65.6 H ABG pO2 65 L 59 L 50 L Garrett Test Positive Positive Respiration Rate 12 O2 Delivery Device NRB BiPAP Liter Flow 15.0 Crit Call To/Read Back Yes Blood Gas Notified Whom 444.0000 Clinical Comments 21/0904/28/23 05:03 Specimen Type ART Sample Site pH 7.10 L* Bicarbonate Actual 19.7 L Total CO2 22 Base Excess -10 L O2 Saturation 71 L O2 % ABG pCO2 63.4 H ABG pO2 51 L Garrett Test Respiration Rate O2 Delivery Device Liter Flow Crit Call To/Read Back Yes Blood Gas Notified Whom Clinical Comments Radiography Diagnostic Testing: Radiology Impression Chest X-Ray 04/27/23 11:20 IMPRESSION: Consolidations and air space disease, and small right effusion as described. Underlying infectious process is a possibility however other entities are hard to exclude. Mild pulmonary vascular congestion. Electronically Signed: Jaime Dyer, at 11:48 EDT , Echocardiogram 04/27/23 13:18 Interpretation Summary Normal LV size. Left ventricular systolic function is normal. The estimated ejection fraction is 55 %. Stage 2 diastolic dysfunction. Contrast injection was performed. Ordering Physician: Shanda German Referring Physician: DEBORAH ANDERSEN Performed By: Lucero Anaya RCS Chest X-Ray 04/28/23 02:52 IMPRESSION: Diffuse interstitial and alveolar opacities, with small pleural effusions. Findings may indicate edema/infection/ARDS. Electronically Signed: Gerald Armendariz MD at 4:23 EDT , Charges/Coding Procedures Hospitalists Procedures: [id number] Insert Emergency Airway
--- NOTE | 2023-04-28 06:25 | RAD_ITS ---
EXAM: XR CHEST, 1 VIEW CLINICAL INDICATION: CVC placement TECHNIQUE: Frontal view of the chest. COMPARISON: Portable chest from same date FINDINGS: LUNGS AND PLEURAL SPACES: Diffuse interstitial and alveolar opacities with small pleural effusions. No pneumothorax. HEART: Unremarkable. Cardiac silhouette not enlarged. MEDIASTINUM: Central airways and mediastinal contour are unremarkable. BONES/JOINTS: See below. SOFT TISSUES: Unremarkable. VASCULATURE: Intra-aortic balloon pump with tip at the level of the proximal descending thoracic aorta, T4 level. TUBES, LINES AND DEVICES: Right jugular central line with tip in the SVC, approximately 8 cm above the cavoatrial junction. Endotracheal tube with tip 5.1 cm above the nelly. Stable enteric tube. RAD/CXR for Line Placement IMPRESSION: 1. Diffuse interstitial and alveolar opacities with small pleural effusions. Findings may indicate edema/infection/ARDS. 2. Right jugular central line with tip in the SVC, approximately 8 cm above the cavoatrial junction. 3. Intra-aortic balloon pump with tip at the level of the proximal descending thoracic aorta, T4 level. Electronically Signed: Gerald Armendariz MD at 7:03 EDT ,
--- NOTE | 2023-04-28 06:45 | EX.PCM.CONCC ---
Assessment & Plan Assessment/Plan (1) Septic shock: PLAN: Plan RECOMMENDATIONS: 1. Continue assist-control mode of mechanical ventilation. Wean FiO2/PEEP to maintain saturations at or above 90%. 2. Continue empiric broad-spectrum antimicrobials. 3. Continue with Levophed, vasopressin and epinephrine. 4. Start stress dose steroids. 5. Discontinue all sedating medications to better assess neurologic status. 6. Obtain limited echocardiogram. 7. Initiate GI prophylaxis. IMPRESSIONS: 1. Multifactorial shock The patient initially presented to the hospital with sepsis and concern for underlying pneumonia +/- UTI. He then went on to develop an acute coronary syndrome requiring cardiac catheterization and PCI. I do suspect that the patient's hemodynamic status is likely the consequence of a combination of septic and cardiogenic shock. However, he is currently on full vasopressor support including Levophed, vasopressin and epinephrine. His hemodynamic status remains tenuous, despite the aforementioned. In addition, the patient has been initiated on appropriate stress dose steroid therapy. He will be continued on empiric broad-spectrum antimicrobials. Overall, the patient's prognosis is quite poor. Will obtain limited echocardiogram this morning. 2. Acute hypoxemic respiratory failure The patient is developed fulminant ARDS with concern for underlying pneumonia and some superimposed pulmonary edema following his cardiac arrest and subsequent ACLS. All supportive measures are currently being continued, including invasive mechanical ventilatory support. Plan to continue to wean FiO2 and PEEP, as tolerated, to maintain saturations at or above 90%. The patient will not tolerate any attempts at diuresis, given his tenuous hemodynamic status. 3. Encephalopathy Clinical concern for anoxic encephalopathy in the setting of decreased cerebral perfusion secondary to #1. Recommend continuing to hold all sedating medications. As noted above, overall, the patient's prognosis is quite poor. Goals of care was discussed extensively with the patient's family this morning. 4. Acute kidney injury Most likely prerenal in etiology in the setting of #1. The patient will likely develop a component of ischemic ATN as a consequence of this. I do anticipate further worsening in his renal status as time progresses. We will continue to monitor urine output for now. No current indication for renal replacement therapy. 5. Obesity/history of VTE/GERD/tobacco dependency Complicates care, management, recovery and prognosis. Hold on initiation of tube feeds. Continue appropriate GI prophylaxis. CODE status: Discussed CODE status at length including difference between FULL code, DNR-CCA and DNR-CC status. Following discussions about the differences in these status, patient's family requested DNR CCA CODE STATUS. Advanced Care Planning Face to Face Time: 18 minutes TIME: 88 minutes of critical care time, independent of procedures, was spent addressing the patient's multifactorial shock, acute hypoxemic respiratory failure, encephalopathy, acute kidney injury, review of all data and collaboration with the care team. HPI Consult Data Date of Consult: 04/28/23 HPI Narrative Reason for Consultation: Septic/cardiogenic shock HPI Narrative: The patient is a 53-year-old male, with a history as outlined below, who presented to the emergency department on April 27 with shortness of breath, cough and chest discomfort. History pertinent to the patient's hospitalization was obtained primarily via chart review, as the patient is currently intubated and there is no family available at the bedside. The patient does have a medical history significant for morbid obesity, tobacco dependency, GERD and VTE. On presentation to the emergency department, the patient was documented to have a temperature of 96.5 ?F. He was tachycardic, tachypneic and hypoxemic, saturating 85% on room air. Initial laboratory evaluation revealed an elevated white blood cell count to 17,000. Coagulation profile was unremarkable. Chemistry profile was notable for a potassium of 3.4. Creatinine was within normal limits. Lactate was noted to be 2.0. Troponin was increased at 1737. BNP was elevated at 490. Urine analysis was positive for leukocyte esterase and 1+ urine bacteria. Chest x-ray demonstrated bibasilar airspace consolidations. The patient initially received supplemental IV fluids and was initiated on antimicrobials. Cardiology consultation was obtained. The patient was ultimately admitted to the medical intensive care unit for further management. The patient slowly worsen from a respiratory status following his initial admission to the intensive care unit. The patient initially refused to utilize noninvasive positive pressure ventilatory support. Overnight, the patient developed worsening respiratory distress. This culminated in his intubation. A short time later the patient developed EKG changes, consistent with a STEMI. The patient ultimately became pulseless with ACLS initiated and 2 rounds of epinephrine delivered. ROSC was achieved. The patient was taken to the cardiac Engine Room Operator where he was noted to have a 95% lesion of the left circumflex artery, for which angioplasty and stenting was performed. As of this morning, the patient is currently on maximum doses of Levophed, vasopressin and epinephrine. He is also on stress dose steroids with continued evidence of tenuous hemodynamics. I did personally meet with the patient's family, including his 2 sons, this morning regarding goals of care, prognosis and CODE STATUS. Following a very zack discussion regarding the patient's current clinical state and overall poor prognosis, the decision was made to transition the patient to DNR CCA. [facility] Medical History DVT (deep venous thrombosis) GERD (gastroesophageal reflux disease) HLD (hyperlipidemia) Kidney stones Morbid obesity Tobacco use Home Medications naproxen sodium 220 mg tablet (Aleve) 440 mg PO DAILY 02/03/23 [History Last Taken 04/26/23] Allergy/AdvReac Type Severity Reaction Status Date / Time No Known Allergies Allergy Verified 02/03/23 09:22 Family History Father Diabetes Heart disease Hypertension Mother Carbon monoxide poisoning Patient notes that his mother when he was less than 1 year old secondary to carbon monoxide poisoning. No significant medical history including heart disease, diabetes or cancer. Surgical History History of incision and drainage History of surgery on extremity History of tonsillectomy and adenoidectomy Social History household members: family Smoking Status: Current every day smoker tobacco type: cigarettes Smoking packs per day: 0.5 Smoking cigarettes per day: 10.0 alcohol intake: current alcohol intake frequency: holidays/special occasions only substance use type: does not use ROS Review of Systems ROS Unobtainable: due to endotracheal tube Physical Exam Const Constitutional Narrative: Intubated and mechanically ventilated. No ventilator dyssynchrony noted. Acutely ill in appearance. HEENT normocephalic and head/scalp atraumatic Mouth: endotracheal tube in place and OG tube in place Eyes PERRL Neck supple General: trachea midline and CVC in place Chest inspection of chest normal Resp Auscultation: diminished lung sounds Cardio S1 normal heart sound and S2 normal heart sound Rate: bradycardia GI normal to inspection, nondistended, normoactive bowel sounds Extremity no clubbing, cyanosis or edema Skin Skin Narrative: Mottling of lower extremities. Cool to touch. Neuro Sensorium / Orientation: sedated on vent Lab / Micro Data 04/28/23 03:15 04/28/23 03:15 Labs: Laboratory Results - last 24 hr 04/27/23 10:40: WBC 17.7 H, RBC 4.62, Hgb 14.6, Hct 43.5, MCV 94.2 H, MCH 31.6, MCHC 33.6, RDW Std Deviation 46.4 H, RDW Coeff of Alejandra 13.5, Plt Count 284, MPV 10.6, Immature Gran % (Auto) 0.400, Neut % (Auto) 85.6 H, Lymph % (Auto) 7.9 L, [place] % (Auto) 5.7, Eos % (Auto) 0.1, Baso % (Auto) 0.3, Absolute Neuts (auto) 15.1 H, Absolute Lymphs (auto) 1.40, Nucleated RBC % 0, PT 14.3, INR 1.1, APTT 26.9, D-Dimer Quant (PE/DVT) 0.35, Sodium 141, Potassium 3.4 L, Chloride 109 H, Carbon Dioxide 25.0, Anion Gap 7, BUN 16, Creatinine 1.04, Estim Creat Clear Calc 82.87, Est GFR (MDRD) Af Amer 95, Est GFR (MDRD) Non-Af 79, BUN/Creatinine Ratio 15.4, Glucose 175 H, Calcium 8.6, Magnesium 1.8, Total Bilirubin 1.10 H, AST 34, ALT 42, Alkaline Phosphatase 69, Troponin I High Sens 1737 H*, B-Natriuretic Peptide 490.8 H, Total Protein 6.9, Albumin 3.4, Globulin 3.5, Albumin/Globulin Ratio 1.0 04/27/23 11:00: Lactic Acid 2.0 04/27/23 11:32: Procalcitonin 0.08, Urine Color Yellow, Urine Clarity Sl. Cloudy, Urine pH 5.0, Ur Specific [place] 1.025, Urine Protein 30 H, Urine Glucose (UA) Normal, Urine Ketones 5 H, Urine Occult Blood 10 H, Urine Nitrite Negative, Urine Bilirubin 1 H, Urine Urobilinogen 1 H, Ur Leukocyte Esterase 500 H, Urine RBC 0 SEEN, Urine WBC 10-25 SEEN, Ur Squamous Epith Cells 0-5 SEEN, Urine Bacteria 1+, Urine Mucus 0 SEEN 04/27/23 13:20: MRSA (PCR) Negative 04/27/23 13:38: Troponin I High Sens 1994 H* 04/27/23 15:47: Lactic Acid 2.4 H* 04/27/23 18:03: APTT 37.3 H, Troponin I High Sens 7 H* 04/28/23 00:50: APTT 78.5 H 04/28/23 03:15: WBC 26.5 H, RBC 4.42 L, Hgb 13.7, Hct 44.4, MCV 100.5 H D, MCH 31.0, MCHC 30.9 L D, RDW Std Deviation 50.4 H, RDW Coeff of Alejandra 13.5, Plt Count 220, MPV 10.8, Immature Gran % (Auto) 0.900, Neut % (Auto) 77.7 H, Lymph % (Auto) 15.4 L, [place] % (Auto) 5.5, Eos % (Auto) 0.1, Baso % (Auto) 0.4, Absolute Neuts (auto) 20.6 H, Absolute Lymphs (auto) 4.08, Nucleated RBC % 0.1, Sodium 139, Potassium 4.8, Chloride 108 H, Carbon Dioxide 23.0, Anion Gap 8, BUN 21 H, Creatinine 1.61 H, Estim Creat Clear Calc 53.53, Est GFR (MDRD) Af Amer 58 L, Est GFR (MDRD) Non-Af 48 L, BUN/Creatinine Ratio 13.0, Glucose 199 H, Calcium 7.9 L, Total Bilirubin 1.20 H, AST 61 H, ALT 65 H, Alkaline Phosphatase 71, Total Protein 6.5, Albumin 2.9 L, Globulin 3.6, Albumin/Globulin Ratio 0.8 L, Triglycerides 221 H, Cholesterol 128, LDL Cholesterol 49, VLDL Cholesterol 44 H, HDL Cholesterol 35 L Micro: Microbiology 04/27/23 13:45 Mucosa - Nasopharyngeal Coronavirus COVID-19 PCR - Final 04/27/23 13:45 Mucosa - Nasopharyngeal Respiratory Panel (PCR) - Final 04/27/23 11:32 Urine, Clean Catch Legionella Antigen - Final 04/27/23 11:32 Urine, Clean Catch Streptococcus pneumoniae Antigen (M - Final 04/27/23 10:50 Nasal Secretion SARS-CoV-2 & FLU Antigen (Rapid) - Final ABG Data ABG results: ABG 04/27/23 04/28/23 04/28/23 12:40 01:44 04:26 Specimen Type ART ART ART Sample Site R Radial R Radial pH 7.38 7.36 7.07 L* Bicarbonate Actual 25.4 23.7 19.0 L Total CO2 27 25 21 Base Excess 0 -2 -11 L O2 Saturation 92 L 89 L 67 L O2 % 75 ABG pCO2 42.6 41.6 65.6 H ABG pO2 65 L 59 L 50 L Garrett Test Positive Positive Respiration Rate 12 O2 Delivery Device NRB BiPAP Liter Flow 15.0 Crit Call To/Read Back Yes Blood Gas Notified Whom 444.0000 Clinical Comments 21/0904/28/23 05:03 Specimen Type ART Sample Site pH 7.10 L* Bicarbonate Actual 19.7 L Total CO2 22 Base Excess -10 L O2 Saturation 71 L O2 % ABG pCO2 63.4 H ABG pO2 51 L Garrett Test Respiration Rate O2 Delivery Device Liter Flow Crit Call To/Read Back Yes Blood Gas Notified Whom Clinical Comments Radiology Impression Chest X-Ray 04/27/23 11:20 IMPRESSION: Consolidations and air space disease, and small right effusion as described. Underlying infectious process is a possibility however other entities are hard to exclude. Mild pulmonary vascular congestion. Electronically Signed: Jaime Dyer, at 11:48 EDT , Echocardiogram 04/27/23 13:18 Interpretation Summary Normal LV size. Left ventricular systolic function is normal. The estimated ejection fraction is 55 %. Stage 2 diastolic dysfunction. Contrast injection was performed. Ordering Physician: Shanda German Referring Physician: DEBORAH ANDERSEN Performed By: Lucero Anaya RCS Chest X-Ray 04/28/23 02:52 IMPRESSION: Diffuse interstitial and alveolar opacities, with small pleural effusions. Findings may indicate edema/infection/ARDS. Electronically Signed: Gerald Armendariz MD at 4:23 EDT , Charges/Coding Procedures Hospitalists Procedures: 01509 Critial Care 1st Hr Multi Select Codes Hospitalists' Procedures Procedures: 97922 Critial Care Addl 30 Min
--- NOTE | 2023-04-28 06:45 | PCM.OP.PRO ---
Procedure Report Date of Procedure: 04/28/23 Central Venous Catheter Indication: Multifactorial shock Consent was obtained from: Procedure was done emergently A time-out was completed verifying correct patient, procedure, site, positioning, and special equipment if applicable. The patient was placed in a dependent position appropriate for central line placement based on the vein to be cannulated. The patient's right IJ was prepped and draped in a sterile fashion. A triple-lumen catheter was introduced into the right internal jugular vein using the Seldinger technique and under ultrasound guidance. The catheter was threaded smoothly over the guidewire and appropriate blood return was obtained. Each lumen of the catheter was evacuated of air and flushed with sterile saline. The catheter was then sutured in place to the skin and a sterile dressing applied. Chest x-ray to confirm appropriate positioning is pending. ULTRASOUND GUIDANCE STATEMENT (Vascular Access): I performed ultrasound image acquisition and interpretation for needle placement during the procedure. The vessel was identified and found to be free of thrombosis by compression technique. A safe point of entry was marked at the skin in an angle for axis was determined. The needle was guided by obtaining free-flowing fluid and by real-time visualization. Procedures Hospitalists Procedures: [id number] Insert Non-tunnel CV Cath
--- NOTE | 2023-04-28 06:52 | NURSING ---
Update given to pt's son Adrian Cabral, all questions answered at this time. Adrian, his brother, and their mom are on their way to the hospital.
--- NOTE | 2023-04-28 07:15 | NURSING ---
Unable to assess CAM due to RASS -5.
[2023-04-28 07:47] LABS: Hemoglobin A1c 6.1 % (3.8-5.6)
[2023-04-28 07:50] LABS: Base Excess -15 mmol/L (-2 to +2); Bicarbonate 15.4 mmol/L (22-26); Blood Gas Specimen Type ART; FI02 100; Mode AC; O2 Delivery Device Adult Vent; PEEP 14; PO2 65 mmHG (75-100); RR 20; SITE Art Line; SO2 83 % (95-99); Total Carbon Dioxide 17 mmol/L; Vt 550; pCO2 51.1 mmHg (35-45); pH 7.09 (7.35-7.45)
[2023-04-28 07:54] LABS: CPK Total, Creatine Kinase 508 U/L (39-308); Triglycerides 219 mg/dL
--- NOTE | 2023-04-28 08:04 | NURSING ---
0230- Dr. Larson is at bedside assessing patient. Lasix 40mg IVP and lerma catheter are ordered and administered. Patient is still having increased work of breathing and coarse lung sounds at this time. 0245- Dr. Larson is preparing to intubate. This RN along with 2 other RNs and RT are at bedside. 0250- Etomidate 20mg IVP given, Succ 100mg IVP given 0252- Patient successfully intubated. Size 8mm ETT, 24cm @ the lip. Positive color change and bilateral breath sounds are heard. Chest x-ray ordered. OG placed. 0310- EKG change noted on monitor. 12 lead EKG obtained. 0311- STEMI ALERT called. 0313- Code Blue called. Please see code documentation.
--- NOTE | 2023-04-28 08:14 | NURSING ---
0400- This RN, RT and Dr. Larson accompany patient to chemical laboratory chief at this time. 0530- Patient return from chemical laboratory chief.
--- NOTE | 2023-04-28 08:16 | NURSING ---
0345- This RN called and updated patient's emergency contact Rodrick on patient's change of condition. He stated he would attempt to get ahold of patient's family.
--- NOTE | 2023-04-28 08:17 | NURSING ---
0800- This RN called patient's emergency contact Rodrick who is patient's friend to update him once again on patient's condition. He stated that he had gotten a hold of patient's son and mother and that they were on their way to the hospital now from [place].
--- NOTE | 2023-04-28 08:18 | CRPHASE1 ---
Patient Communication Patient Information PHII Cardiac Rehab Discussed with Patient:: No (PT INTUBATED-BOOKLET GIVEN) Guide to Cardiac Rehab Given to Patient:: Yes Cardiac Rehab Facility Choice List Given to Patient:: Yes Communication to Cardiac Rehab Choice Program [facility] CR PHII:: Communication Given to CR Supervisor Hand Workers:: Tabitha Hughes Refer Phase II Cardiac Rehab:: Yes Sessions:: 36 sessions - 3 days/wk, 12 weeks Cardiac Rehabilitation Info Program Information Cardiac Rehabilitation Program Information: Cardiac Rehab The cardiac rehab team at [facility] consists of highly skilled exercise physiologists, nurses, respiratory therapists and physicians working together with you. Our purpose is to help you have a full recovery and achieve the goals you set for yourself. Over the years many of our patients have returned to activities they assumed they would never do again! We can help restore your confidence and motivation to make lifestyle changes that can have a significant impact on your health and quality of life! We can help answer questions and concerns you may have about exercise, lifestyle, medications, diet, stress and anxiety which are common following a hospitalization. WE monitor ECG and vital signs during exercise and discuss your progress with you and report to your physician(s). Cardiac Rehab is proven to help reduce readmissions, improve functional capacity and lower recurrence of problems with your heart. Our Cardiac Rehab program is Certified by the [place] [employer] of Cardio-Vascular and Pulmonary Rehabilitation (AACVPR) and Accredited by the [place] [employer] through our [facility]. You can contact us at . We invite you to call us with your questions or to get started in our program. If you have other questions or concerns be sure to ask your physician/provider during your follow-up visit. WE look forward to seeing you!
[2023-04-28 09:53] LABS: Partial Thromboplast Time 99.6 Seconds (24.1-36.2)
--- NOTE | 2023-04-28 09:54 | NURSING ---
Called lab at this time for still pending PTT result, gave result of 99.6 over phone, result then placed in chart.
--- NOTE | 2023-04-28 10:00 | PCM.RX.CS ---
Consult Antibiotic Management Pharmacy has been consulted to manage selected antiobiotic: Vancomycin Type of Intervention Type of Consult: New start Labs Labs: Sodium 139 mmol/L (136-145) 04/28/23 03:15 Potassium 4.8 mmol/L (3.5-5.1) 04/28/23 03:15 Chloride 108 mmol/L (98-107) H 04/28/23 03:15 Carbon Dioxide 23.0 mmol/L (21.0-32.0) 04/28/23 03:15 Anion Gap 8 (5-15) 04/28/23 03:15 BUN 21 mg/dL (7-18) H 04/28/23 03:15 Creatinine 1.61 mg/dL (0.70-1.30) H 04/28/23 03:15 Est GFR (MDRD) Af Amer 58 mL/min (>60) L 04/28/23 03:15 Est GFR (MDRD) Non-Af 48 mL/min (>60) L 04/28/23 03:15 BUN/Creatinine Ratio 13.0 RATIO (10-20) 04/28/23 03:15 Glucose 199 mg/dL (74-106) H 04/28/23 03:15 Microbiology Microbiology: Microbiology 04/27/23 13:45 Mucosa - Nasopharyngeal Coronavirus COVID-19 PCR - Final 04/27/23 13:45 Mucosa - Nasopharyngeal Respiratory Panel (PCR) - Final 04/27/23 11:32 Urine, Clean Catch Legionella Antigen - Final 04/27/23 11:32 Urine, Clean Catch Streptococcus pneumoniae Antigen (M - Final 04/27/23 10:50 Nasal Secretion SARS-CoV-2 & FLU Antigen (Rapid) - Final Pharmacy Plan for Drug Dosing Pharmacy Plan for Drug Dosing: NEW START IV VANCOMYCIN Consulting Physician: LEXY Indication: SHOCK Goal Trough: 15-20 MG/DL SrCr: 1.61 MG/DL CrCl: 71.5 ML/MIN (USING ADJ BW) Comments: 2000MG LOADING DOSE GIVEN 04/28 @ 0851 Vancomycin Dose: WILL START 1750MG Q12 @ 2100 AND GET A TROUGH PRIOR TO THE 4TH TOTAL DOSE PER POLICY. Pending Level: 04/29/23 @ 2030 Pharmacy Service will continue to monitor and adjust dosing as required.
--- NOTE | 2023-04-28 10:30 | CASEMGMT ---
Patient is not doing well at this time. Per RN patient's estranged son and ex- have arrived at [facility] from [place], [place]. Patient's sons are Adrian and Manjinder. Manjinder is Autistic. Family was in to see patient and then stepped out to discuss situation. JANEE checked in on patient's sons who were out by the elevators. Adrian asked SW if patient is brain . SW let them know SW will have physician come speak with them to answer their questions. SW notified physician. SW, physician, and RN's went to talk with patient's family. Patient's sons and ex- Seema were present as well as patient's brother and sister. After discussion it was decided patient will be DNRCC-A at least until patient's good friend Rodrick is able to come in to see patient. JANEE provided emotional support. JANEE spoke with patient's ex- Seema. She expressed concern for patient's children and cost of a . JANEE let Seema know that the homes are able to assist with finances. JANEE can also give them a list of local homes. Suyapa Stringer TRAY LINE WORKER MARIA LUZ
[2023-04-28] MEDS: Aspirin E.C. 81 MG Tablet PO (10:38)
[2023-04-28] MEDS: Hydrocortisone Sod Succinate 100 MG/2 ML Vial 50 MG IV ×2 (12:07→17:54)
--- NOTE | 2023-04-28 12:50 | NURSING ---
Entered patient's room, upon entering, this RN visualized patient moving arms and head, reapplied restraints for safety at 1250. Informed preceptor, SAMANTHA Vázquez.
--- NOTE | 2023-04-28 13:04 | CL.I_ITS ---
Patient Name: MAXIME ZAMUDIO Study Date: 04/28/2023 Performing: Brandon Hughes MD Ht: 70 inches 179.07 cm : 1970 Wt: 289 lbs 130.9 kg Age: 53 Gender: male BSA: 2.45 PROCEDURE(S) PERFORMED DC02-(61266)LHC/COR IC16-(21918/C9606)AMI, DOMINGO OR PTCA, ARTERY/GRAFT, SINGLE VESSEL DC14-(63360)IABP INSERTION CLINICAL PROFILE AND CO-MORBIDITIES Indications: ACS <= 24 hrs Heart Failure: None Stress/Imaging Stress/Image Study Performed: No CAD Presentations: STEMI. Symptom onset Date/Time: 04/28/23 Time Not Available. CONCLUSIONS CAD as described. Successful PCI of mid circumflex with drug-eluting stent. Successful intra-aortic balloon pump placement. RECOMMENDATIONS DESCRIPTION OF PROCEDURE The patient arrived to the procedure lab. The risks and benefits of the procedure as well as a full description of our services here and lack of surgical backup were fully explained to the patient and/or their significant other prior to the catheterization. The Timeout was completed, verifying the correct patient and procedure. The patient's procedural site was prepped and draped in the usual fashion. Local anesthetic was given subcutaneously to right radial region with Lidocaine 2%. Local anesthetic was given subcutaneously to right groin region with Lidocaine 2%. Using a modified Seldinger technique, arterial access was obtained via the right femoral artery, a 6Fr sheath was inserted.. Right Coronary Artery selective angiography was then performed in multiple views using a 6 Fr. JR 4 catheter. Left Coronary Artery selective angiography was performed in multiple views using a 6 Fr.Arrow 40cc 7.5F UltraFlex IABP - Qty: 1 Each Part #: [id number], A 7Fr 40cc IABP catheter was inserted into the right femoral artery, IABP Augumented BP: 48 mmHg Systemic BP: 46 mmHgThe images were reviewed and options discussed. A decision was then made to proceed with an Intervention, IVUS or other adjunct procedure. xb 3.5 Guide catheter was inserted and engaged into the LCA. bmw Guide wire was advanced to the Circumflex. emerge 2.5 x 12 Balloon catheter was advanced across lesion in the circumflex, mid. PTCA balloon inflated at 6 atms for 12 secs. PTCA balloon inflated at 8 atms for 8 secs. Angiogram performed post balloon dilatation. resolute 3.0 x 18 Drug Eluting stent was advanced across the lesion in the circumflex, mid. Angiogram performed post stent deployment. The arterial sheath was sutured in place with heparinized normal saline under pressure CORONARY ANGIOGRAPHY DOMINANCE: Left Dominant LEFT HEART ASSESSMENT Left Ventricular Ejection Fraction: Not assessed LEFT MAIN: Mild luminal irregularities LEFT ANTERIOR DESCENDING ARTERY: Mild luminal irregularities CIRCUMFLEX ARTERY: MID CIRC: 99 % Stenosis RIGHT CORONARY ARTERY: Mild luminal irregularities INTERVENTION INFORMATION LESION SITE: Circumflex (Mid) Lesion Complexity: High/C, chronic total occlusion: No, lesion at bifurcation: Yes, thrombus present: Yes, lesion length: 15 mm, culprit lesion: Yes, Previously treated lesion: No Pre Stenosis: 99 % Pre intervention MARÍA flow: 1 PROCEDURE: Drug Eluting Stent with pre dilatation. Patient originally presented with respiratory distress, hypoxia and elevated troponin. His EF was preserved. He became more short of breath early this morning. An EKG done at that time revealed inferior ST elevation TN. After STEMI alert was called patient went into cardiac arrest. He was successfully resuscitated from that. Vascular access was difficult and the procedure was done via right common femoral artery. 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 This led to delay to PCI. Even after PCI, patient continued to remain hypotensive despite levophed and decreasing the propofol. He was also severely hypoxic and acidotic despite increasing the respiratory rate, tidal volume and administering 3 A of bicarb. It appears that patient's primary presentation was due to pneumonia/ARDS rather than isolated cardiac event. Intra-aortic balloon pump was placed successfully and started on one-to-one support. Post Stenosis: 0 % Post intervention MARÍA flow: 3 Lesion Devices: Santacruz .014 190cm BMW [place] Straight Cordis 6 Fr JR4 100cm Guide Catheter Cordis 6 Fr XB3.5 100cm Guide Catheter Barry Sci EMERGE MR 2.50x12 BALLOON Medtronic Resolute Dirk RX DOMINGO 3.0x18 COMPLICATIONS No Complications PROCEDURE MEDICATIONS Oxygen: 100 % FiO2 via ventilator. See Resp Record for Settings Brilinta 180 mg PO 04/28/2023 04:17:23 Baby Aspirin (81mg) 1 Tabs PO 04/28/2023 04:17:32 Amiodarone 300 mg push @ 04/28/2023 05:06:47 Heparin 7000 unit(s) IV 04/28/2023 04:43:11 SUMMARY OF HEMODYNAMIC DATA Time AIR REST ECG 04:01:47 ECG 04:04:28 AO 64/36 (51) SA 04:24:20 Signed By Brandon Hughes MD On 04/28/2023 13:03:47 Brandon Hughes MD
[2023-04-28] MEDS: fentaNYL drip 100 ML 20 MCG CONT INF ×2 (13:33→18:19)
--- NOTE | 2023-04-28 15:36 | PN_ITS ---
Subjective Subjective Patient seen and examined. He went into respiratory distress overnight and was intubated after he didnt improve on BIPAP. He subsequently had ST elevation in infero lateral leads and a stemi alemagi was called. He subsequently became bradycardic as well requiring atropine and epinephrine. CODE BLUE was called as he went into PEA and was resuscitated via ACLS protocol. He was also started on Levophed due to hypotension. IN the catheter finisher and inspector he had a several beat run of vtach. He is intubated and minimally responsive. He is maxed out on multiple pressors. He went into STEMI overnight and had emergent cardiac cath which showed 99% stenosis of the mid circumflex artery, for which he had a stent placed. Unable to do review of systems. Prognosis remains poor. Objective Data Objective Data Vital Signs: Vital Signs Temp Pulse Resp BP Pulse Ox O2 Del Method O2 Flow Rate 97.6 F L 99 33 H 72/43 L 99 Mechanical Ventilator 60 04/28/23 13:00 04/28/23 15:00 04/28/23 15:00 04/28/23 15:00 04/28/23 15:00 04/28/23 15:00 04/28/23 00:00 FiO2 100 04/28/23 15:00 Oxygen Flow Rate (L/min) 60 Oxygen Delivery Method Mechanical Ventilator Weight: 291 lb 14.272 oz Body Mass Index (BMI) 41.3 Intake & Output: Intake and Output for Last 24 Hours 04/26/23 04/27/23 04/28/23 23:59 23:59 23:59 Intake Total 1898.71 / 1906.89 3603.25 / 3603.25 Output Total 200 / 200 139 / 139 Balance 1698.71 / 1706.89 3464.25 / 3464.25 Lab / Micro Data 04/28/23 03:15 04/28/23 03:15 Labs: Laboratory Results - last 24 hr 04/27/23 13:20: MRSA (PCR) Negative 04/27/23 15:47: Lactic Acid 2.4 H* 04/27/23 18:03: APTT 37.3 H, Troponin I High Sens 2277 H* 04/28/23 00:50: APTT 78.5 H 04/28/23 03:15: WBC 26.5 H, RBC 4.42 L, Hgb 13.7, Hct 44.4, MCV 100.5 H D, MCH 31.0, MCHC 30.9 L D, RDW Std Deviation 50.4 H, RDW Coeff of Alejandra 13.5, Plt Count 220, MPV 10.8, Immature Gran % (Auto) 0.900, Neut % (Auto) 77.7 H, Lymph % (Auto) 15.4 L, Van Zandt % (Auto) 5.5, Eos % (Auto) 0.1, Baso % (Auto) 0.4, Absolute Neuts (auto) 20.6 H, Absolute Lymphs (auto) 4.08, Nucleated RBC % 0.1, Sodium 139, Potassium 4.8, Chloride 108 H, Carbon Dioxide 23.0, Anion Gap 8, BUN 21 H, Creatinine 1.61 H, Estim Creat Clear Calc 53.53, Est GFR (MDRD) Af Amer 58 L, Est GFR (MDRD) Non-Af 48 L, BUN/Creatinine Ratio 13.0, Glucose 199 H, Hemoglobin A1c 6.1 H, Calcium 7.9 L, Total Bilirubin 1.20 H, AST 61 H, ALT 65 H, Alkaline Phosphatase 71, Total Creatine Kinase 508 H, Total Protein 6.5, Albumin 2.9 L, G lobulin 3.6, Albumin/Globulin Ratio 0.8 L, Triglycerides 221 H 04/28/23 03:15: Triglycerides 219 H, Cholesterol 128, LDL Cholesterol 49, VLDL Cholesterol 44 H, HDL Cholesterol 35 L 04/28/23 08:20: APTT 99.6 H* Micro: Microbiology 04/27/23 13:20 Sputum, Expectorated/Coughed Gram Stain - Final 04/27/23 13:45 Mucosa - Nasopharyngeal Coronavirus COVID-19 PCR - Final 04/27/23 13:45 Mucosa - Nasopharyngeal Respiratory Panel (PCR) - Final 04/27/23 11:32 Urine, Clean Catch Legionella Antigen - Final 04/27/23 11:32 Urine, Clean Catch Streptococcus pneumoniae Antigen (M - Final 04/27/23 10:50 Nasal Secretion SARS-CoV-2 & FLU Antigen (Rapid) - Final ABG Data ABG results: ABG 04/28/23 04/28/23 04/28/23 01:44 04:26 05:03 Specimen Type ART ART ART Sample Site R Radial pH 7.36 7.07 L* 7.10 L* Bicarbonate Actual 23.7 19.0 L 19.7 L Total CO2 25 21 22 Base Excess -2 -11 L -10 L O2 Saturation 89 L 67 L 71 L O2 % 75 ABG pCO2 41.6 65.6 H 63.4 H ABG pO2 59 L 50 L 51 L Garrett Test Positive Respiration Rate 12 O2 Delivery Device BiPAP Vent Mode Tidal Volume POC PEEP Crit Call To/Read Back Yes Yes Blood Gas Notified Whom 444.0000 Clinical Comments 21/0904/28/23 07:45 Specimen Type ART Sample Site Art Line pH 7.09 L* Bicarbonate Actual 15.4 L Total CO2 17 Base Excess -15 L O2 Saturation 83 L O2 % 100 ABG pCO2 51.1 H ABG pO2 65 L Garrett Test Respiration Rate 20 O2 Delivery Device Adult Vent Vent Mode AC Tidal Volume 550 POC PEEP 14 Crit Call To/Read Back Yes Blood Gas Notified Whom LEXY Clinical Comments Radiography Diagnostic Testing: Radiology Impression Echocardiogram 04/27/23 13:18 Interpretation Summary Normal LV size. Left ventricular systolic function is normal. The estimated ejection fraction is 55 %. Stage 2 diastolic dysfunction. Contrast injection was performed. Ordering Physician: Shanda German Referring Physician: DEBORAH ANDERSEN Performed By: Lucero Anaya RCS Chest X-Ray 04/28/23 02:52 IMPRESSION: Diffuse interstitial and alveolar opacities, with small pleural effusions. Findings may indicate edema/infection/ARDS. Electronically Signed: Gerald Armendariz MD at 4:23 EDT , Chest X-Ray 04/28/23 06:25 IMPRESSION: 1. Diffuse interstitial and alveolar opacities with small pleural effusions. Findings may indicate edema/infection/ARDS. 2. Right jugular central line with tip in the SVC, approximately 8 cm above the cavoatrial junction. 3. Intra-aortic balloon pump with tip at the level of the proximal descending thoracic aorta, T4 level. Electronically Signed: Gerald Armendariz MD at 7:03 EDT , Physical Exam Narrative intubated, sedated, RASS score is -4 HEENT normocephalic and head/scalp atraumatic Resp Resp Narrative: intubated, sedated. diminished breath sounds bibasally, no wheezes or crackles. Cardio regular rate, regular rhythm, S1 normal heart sound, S2 normal heart sound and no murmurs GI normal to inspection, nondistended, normoactive bowel sounds, soft to palpation and non-tender Extremity Extremity Narrative: lower extremities cyanotic, cool to touch, with diminished pulses likely due to profound hypotension Skin General Skin Exam: no breakdown Neuro Neuro Narrative: intubated, sedated, RASS score is -4. Intubated Assessment & Plan Assessment/Plan (1) Septic shock: (2) Hypoxia: (3) Chest pain: (4) STEMI (ST elevation myocardial infarction): PLAN: Plan #Acute hypoxic respiratory failure due to acute cardiopulmonary arrest in the setting of STEMI * currently intubated and sedated. RASS score is -4 * maxed out on multiple vasopressors- levophed, vasopressin and epinephrine * critical care on board * Had cardiac cath yesterday night which showed 95% occlusion in the left circumflex artery for which angioplasty was performed with stenting. He did have an intra-aortic balloon pump placed afterwards due to hypotension. * Titrate oxygen to maintain saturation above 90%. * Prognosis remains poor. * #ST elevation OH: As above #Shock, likely multifactorial * maxed out on multiple pressors, as above * also on board spectrum antibiotics * aortic balloon pump in place. * on broad spectrum antibiotics * stress dose steroids started * patient remains hypotensive and tenous hemodynamically * 2D echo ordered * #Encephalopathy: * All sedating medications held. There is concern for anoxic encephalopathy in light of severe hypertension. Prognosis is poor. Family updated by critical care * * #OLI * Likely prerenal due to shock. Currently on multiple pressors up as above. * Has minimal urine output. Continue monitoring urine output. If it worsens consult nephrology. * #Acute complicated UTI: Currently on broad-spectrum antibiotics as above. 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 Currently on heparin drip as he has the aortic balloon pump in place #Morbid obesity: BMI is 41.3. Complicates acute care, expected recovery and prognosis. DVT prophylaxis: On heparin drip Prognosis: Poor Charges/Coding Visit Charges Inpatient E&M: 68915 Subs Hosp L3
[2023-04-28] MEDS: Acetaminophen 650 MG/20 ML UDC GT (16:37)
--- NOTE | 2023-04-28 18:35 | NURSING ---
Adrian, son, discussed with this RN and SAMANTHA Unger wanting to withdraw care and proceed with [facility] organ donation. Lazaro, [facility] [place] family liaison, made aware.
--- NOTE | 2023-04-28 19:02 | NURSING ---
[facility] policy verified per dominick Lilly supervisor. Awaiting nightshift physician for verification of family desire to withdraw care and move forward with organ donation.
--- NOTE | 2023-04-28 19:08 | NURSING ---
1335- Nic in patient room requesting update, communicated that fentanyl restarted and maxed and etomidate x1 given. 1400- [facility] in unit requesting to speak with Dr. New. Dr. New core text this information, he then called unit to speak with Lazaro. 1500- [facility] updated multiple times this hour, [facility] still trying to reach family and unsuccessful, [facility] are no other phone numbers listed. 1600- [facility] updated multiple times this hour also 1700- [facility] updated 1747- [facility] to [facility] Dr. New regarding organ donation, Dr. New called in and spoke with Lazaro.
--- NOTE | 2023-04-28 21:15 | PCM.HOSP.N ---
Hospitalist Note Patient had onset of bradycardia and within seconds went asystole. Date of : 04/28/23, Time of : 20:59.
--- NOTE | 2023-04-28 21:45 | NURSING ---
2054 healthcare team prepared pt to go down to OR with [facility]. 2058 pt went asystole on ecg monitor. Dr. German at bedside. 1mg epinephrine given per [facility] physician's order. Pt had no response, still asystole. Cardiopulmonary verified by Dr. German, this RN, and Malu Workman RN via ecg monitor and auscultation of absent heart sounds.
--- NOTE | 2023-04-29 07:33 | PCM.DEATH ---
Preliminary Cause of Preliminary Cause of Preliminary Cause of : acute cardiopulmonary arrest due to STEMI Date of Admission: 04/27/23 Date of : 04/28/23 Principle Diagnosis Problem List: Active and Suspected Problems (Updated 04/28/23 @ 15:[address] Tiffanie Phillip MD) STEMI (ST elevation myocardial infarction) (Acute) Septic shock (Acute) Hypoxia (Acute) Chest pain (Acute) Non-STEMI (non-ST elevated myocardial infarction) (Acute) Pneumonia (Acute) Sepsis (Acute) Hospital Course Patient is a 53 y/o male with a PMH as outlined who was admitted via the ED on 04/27/2023 with a complaitn of weakness, malaise and cough productive of sputum as well as some chest pressure. He was also short of breath and diaphretic. On admission, he was found to have markedly elevated troponin of 1737, and urinalysis showed evidence of UTI. CXR showed bilateral lung infiltrates and pulmonary vascular congestion. EKG showed St depressions in the anterior leads. HE was placed on aspirin and heparin drip as well as broad spectrum antibiotics and admitted to the ICU. Case was discussed with ferry boat captain who thought this was likely due to demand ischemia from underlying medical issues and recommended treating concurent acute illness, and once he was more stable, would be considered for cardiac cath. Cardiology and critical care were consulted.Hospital course was complicated by pateint going into respiratory distress; he was intubated after he didnt improve on BIPAP. He subsequently had ST elevation in infero lateral leads and a stemi aleret was called. He subsequently became bradycardic as well requiring atropine and epinephrine. CODE BLUE was called as he went into PEA and was resuscitated via ACLS protocol. He was also started on Levophed due to hypotension. IN the laborer construction or leak gang he had a several beat run of vtach. He is intubated and minimally responsive. He is maxed out on multiple pressors. He went into STEMI overnight and had emergent cardiac cath which showed 99% stenosis of the mid circumflex artery, for which he had a stent placed. He had an intraoartic balloon pump placed. HE required 3 pressors- levophed, vasopressin and epinephrine. He still remained hypotensive and shock was thought to be multifactorial. He was started on stress dose of steroids. He didnt improve and continued to deteriorate. Family decided to withdraw care and initially wanted his organs to be donated to [facility]; he was subsequently deemed to not be a candiate for [facility]. Patient went into asystole and on 04/28/2023 at 20:59. Cause of is acute cardiopulmonary arrest due to STEMI and multifactorial shock. Visit Charges Inpatient E&M: 52876 Disch Hosp
== END 2023-04-28 23:30 | DRG 853 ==
LOC: ED 12:23 → ICU 13:11
PROVIDERS: Family Medicine; Admitting Provider Family Medicine; Emergency Provider Emergency Medicine; PCP Physician Assistant; Visit Provider Student in an Organized Health Care Education/Training Program
DX: A41.9 Sepsis, unspecified organism (principal); J18.9 Pneumonia, unspecified organism; J80 Acute respiratory distress syndrome; I21.19 ST elevation (STEMI) myocardial infarction involving other coronary artery of inferior wall; R65.21 Severe sepsis with septic shock; N17.9 Acute kidney failure, unspecified; G93.1 Anoxic brain damage, not elsewhere classified; I47.20 Ventricular tachycardia, unspecified; Z68.41 Body mass index [BMI] 40.0-44.9, adult; N39.0 Urinary tract infection, site not specified; R57.0 Cardiogenic shock; E66.01 Morbid (severe) obesity due to excess calories; I46.2 Cardiac arrest due to underlying cardiac condition; F41.9 Anxiety disorder, unspecified; F17.210 Nicotine dependence, cigarettes, uncomplicated; E78.5 Hyperlipidemia, unspecified; I10 Essential (primary) hypertension; E87.6 Hypokalemia; R73.9 Hyperglycemia, unspecified; Z20.822 Contact with and (suspected) exposure to COVID-19; Z95.5 Presence of coronary angioplasty implant and graft; Z66 Do not resuscitate
CPT/HCPCS: 31500; 31720; 33967; 36600; 71045; 71046; 80053; 80061; 81001; 82550; 82803; 83036; 83605; 83735; 83880; 84145; 84478; 84484; 85025; 85379; 85610; 85730; 86850; 86900; 86901; 87040; 87070; 87086; 87205; 87428; 87449; 87633; 87635; 87641; 92941; 92950; 93005; 93306; 93308; 93454; 94002; 94640; 94660; 94668; 97803; 99285; J7030; J7040; J7050; Q9957; A4216; C1725; C1751; C1769; C1874; C1887; C1894; C8924; C8929; C9606; J0696; J1327; J1940; J3490; Q9967